=== PATIENT | male | born 1990 | race Caucasian/White ===

== ENCOUNTER 2016-12-11 21:18 | Emergency (ER) | payer OTHER ==
[~2016-12-11] VITALS: Ht 175.3 cm; Wt 73.5 kg
[~2016-12-11 21:18] MED LIST: BUPR100T8 PO; QUET1TAB10 PO
[2016-12-11 21:21] VITALS: TEMP 36.6; Ht 175.3 cm; Wt 73.5 kg
[2016-12-11] MEDS ORDERED: OXYC1TAB3 PO (21:34)
--- NOTE | 2016-12-11 21:41 | EMERGENCY ROOM VISIT NOTE ---
History First contact with patient: 21:26 Chief Complaint: DENTAL PAIN Stated Complaint: SHARP PAINS Nursing Triage Summary: Recent teeth pulled, c/o shooting pain on right side. History of Present Illness The patient is a 26 year old male who presents to the Emergency Room with complaints of right-sided dental pain. The patient reports that he underwent wisdom tooth extraction one week ago by Dr. Ramesh in [place]. The patient reports that his pain started 24 hours ago, and is now rated a 10 out of 10. He did call the office and they cannot see him until Thursday. They would not provide any additional prescriptions. The patient denies any facial swelling, drainage or foul taste. He denies any bleeding from the extraction site. He was told to avoid smoking. When he did try to smoke, his girlfriend scolded him. He denies any fevers or chills or difficulty swallowing. Review of Systems 10 system review was performed and was negative except for pertinent positives and negatives as indicated in history of present illness Past Medical/Surgical History Medical Problems: (1) Asthma Family History Diabetes mellitus Hypertension Seizures Social History Smoking Status: Current Every Day Smoker Alcohol Use: occasionally Drug Use: none Marital Status: single Housing Status: lives with family Occupation Status: unemployed Current/Historical Medications Scheduled Bupropion (Wellbutrin Sr), 100 MG PO DAILY Scheduled PRN Oxycodone Ir (Roxicodone Ir), 1 TAB PO Q6H PRN for Pain Quetiapine Fumarate (Seroquel), 200 MG PO HS PRN for INSOMNIA Allergies Coded Allergies: Acetaminophen (Verified Allergy, Unknown, GI SYMPTOMS, 04/28/15) Hydrocodone (Verified Allergy, Unknown, GI SYMPTOMS, 04/28/15) Tramadol (Verified Allergy, Unknown, GI SYMPTOMS, 04/28/15) Physical Exam Vital Signs Date Time Temp Pulse Resp B/P Pulse Ox O2 Delivery O2 Flow Rate FiO2 12/11/16 21:21 36.6 100 16 143/96 97 Room Air Physical Exam CONSTITUTIONAL: Healthy and well nourished. Alert and oriented X 3 with positive affect. HEENT: Normocephalic, atraumatic. Pupils equal, round and reactive. No facial edema or erythema noted. OROPHARYNX: The patient has evidence for 4 wisdom teeth extractions. There is no gingival erythema, fluctuance or pointing. LYMPHATICS: No submandibular, submental or cervical chain adenopathy. NECK: Full active range of motion without discomfort. RESPIRATORY: Clear to auscultation bilaterally with no wheezing, crackles, rhonchi or stridor. CARDIOVASCULAR: Regular rate and rhythm with no murmurs, rubs or gallops. INTEGUMENTARY: No rash or other significant dermatologic conditions noted. NEUROLOGIC: Facial sensations are intact. Medical Decision & Procedures ED Course Patient history and physical exam were performed. Nurse's notes were reviewed. It is noted that the patient has Tylenol listed as an allergy in medical records. The patient reports that he was provided a prescription for Percocet. The patient then reported that he is not allergic to Tylenol. The patient was provided a home pack and prescription for oxycodone 5 mg, one every 6 hours as needed for pain, dispensed #12 no refills. The patient was advised that I am unable to provide any larger prescription. He was instructed to seek further pain management from his dentist or family doctor. He is welcome to return for any developing facial swelling, redness, fever, difficulty swallowing or other signs of developing infection. The patient voiced understanding of all discharge instructions, and rated his pain a 7 out of 10 at the conclusion of my exam. Medical Decision [place] Drug Monitoring Program Search Results: patient reviewed within database, no issues identified Impression Primary Impression: Post extraction dental pain Departure Information Dispostion Home / Self-Care Prescriptions Oxycodone Ir (Roxicodone Ir) 5 Mg Tab 1 TAB PO Q6H Y for Pain, #12 TAB For Initial Treatment Prov: Mark Reynaga PA 12/11/16 Forms HOME CARE DOCUMENTATION FORM, IMPORTANT VISIT INFORMATION Patient Instructions My [facility] Additional Instructions Take ibuprofen 600 mg every 6-8 hours. OxyIR if needed for worse pain. Do not drink or drive while taking OxyIR. You must follow-up with your oral surgeon for further management. If he is unable to provide any further pain management for you, contact your family doctor. The emergency department does not provide postoperative pain management, dental services or referrals.
[2016-12-11] MEDS ORDERED: OXYCODONE IR HOME PACK PO ONE (21:45)
[2016-12-11 21:49] VITALS: BP 143/87; PULSE 95; O2SAT 96
[2017-01-28] MEDS ORDERED: CLON0.5T3 PO (16:00)
[2017-05-06] MEDS ORDERED: DECONGESTANT PO (16:55)
[2017-06-30] MEDS ORDERED: OXYC1TAB3 PO (21:04)
[2017-06-30] MEDS ORDERED: CLON0.5T3 PO (21:52)
[2017-06-30] MEDS ORDERED: BUPR-79 PO (21:53)
[2017-06-30] MEDS ORDERED: CHLO1TAB19 PO (21:53)
== END 2016-12-11 21:50 | disposition home or self-care (01) ==
LOC: C.EDB 21:19 → C.EDD 21:50
DX: K08.89 Other specified disorders of teeth and supporting structures (principal); J45.909 Unspecified asthma, uncomplicated; F17.200 Nicotine dependence, unspecified, uncomplicated; Z79.899 Other long term (current) drug therapy; Z88.5 Allergy status to narcotic agent; Z88.6 Allergy status to analgesic agent; Z83.3 Family history of diabetes mellitus; Z82.49 Family history of ischemic heart disease and other diseases of the circulatory system; Z82.0 Family history of epilepsy and other diseases of the nervous system

== ENCOUNTER 2016-12-26 19:17 | Emergency (ER) | payer OTHER ==
[~2016-12-26] VITALS: Ht 175.3 cm; Wt 75.4 kg
[~2016-12-26 19:17] MED LIST changes: +OXYC1TAB3 PO
[2016-12-26 19:36] VITALS: TEMP 36.6; Ht 175.3 cm; Wt 75.4 kg
[2016-12-26] MEDS ORDERED: OXYCODONE IR HOME PACK PO ONE (20:45)
--- NOTE | 2016-12-26 20:46 | EMERGENCY ROOM VISIT NOTE ---
ED Visit Note First contact with patient: 20:38 CHIEF COMPLAINT: Toothache HISTORY OF PRESENT ILLNESS: This 26-year-old male patient presented to the emergency department ambulatory with a progressive toothache for past several days. The patient believes it is coming from sites of dental extraction. The pain is now steady and severe and radiates to the face. The patient does a dentist appointment set up on Thursday. They rate their pain a 9/10 and the ibuprofen and Tylenol they have been taking has not relieved the pain. Denies facial swelling or fever. The patient denies any discharge from the mouth. REVIEW OF SYSTEMS: A 6 system review of systems was completed with positives and pertinent negatives listed in the HPI. ALLERGIES: Acetaminophen, hydrocodone, tramadol MEDICATIONS: Patient denies PMH: Patient denies SOCIAL HISTORY: The patient is a smoker. He lives locally PHYSICAL EXAM: Vitals are noted on the nurse's note and reviewed by myself. Vital signs stable. Temperature 36.6C orally. GENERAL: 26-year-old male, in no acute distress, nondiaphoretic, well-developed well-nourished. Mouth: There is no facial swelling. There is no evidence of gum swelling. There is no discharge. There is no obvious exposed bone or nerve root. The remainder of the pharynx and tonsils are without erythema, edema, or exudate. The airway is patent. There is no facial swelling, cervical or submandibular lymphadenopathy. The patient appears uncomfortable and in pain. The patient has overall fair dental hygiene. ED COURSE: The patient was seen and examined. Previous visits were reviewed. The patient has been seen here multiple times in the past for dental pain. He has been here for possible overdose as well. The patient has been seen for this particular episode of dental pain. He had received a prescription for oxycodone. Upon review of the prescription drug monitoring website, he has also received 2 prescriptions for narcotics from his maxillofacial surgeon. I advised the patient and he has been here multiple times. He states that he just got out of residential and hasn't been here for a while. I do not feel comfortable giving the patient a prescription for narcotics but I did agree to give him a take-home pack. He states he is already taking clindamycin. He states he has an appointment with his dentis on Thursday. He should keep this appointment. Problem List Medical Problems: (1) Asthma Status: Chronic Current/Historical Medications Scheduled Bupropion (Wellbutrin Sr), 150 MG PO BID Clindamycin Hcl (Cleocin), 1 CAP PO TID Allergies Coded Allergies: Hydrocodone (Verified Allergy, Unknown, GI SYMPTOMS, 04/28/15) Tramadol (Verified Allergy, Unknown, GI SYMPTOMS, 04/28/15) Vital Signs Date Time Temp Pulse Resp B/P Pulse Ox O2 Delivery O2 Flow Rate FiO2 12/26/16 21:12 77 18 144/90 96 12/26/16 19:36 36.6 83 19 131/90 97 Room Air Medications Administered Medications (Trade) Dose Ordered Sig/Lelia Route Start Time Stop Time Status Last Admin Dose Admin Oxycodone HCl (Roxicodone Immediate Rel 5MG Home Pack) 1 homepack UD ONCE PO 12/26/16 20:45 12/26/16 20:46 DC 12/26/16 21:08 1 HOMEPACK Departure Information Impression Primary Impression: Pain, dental Dispostion Home / Self-Care Condition GOOD Referrals Ed Singer M.D. (PCP) Real Ramesh M.D. Patient Instructions My [facility] Additional Instructions Motrin 600 mg every 6-8 hours for moderate pain Oxy IR 1-2 tablets every 4-6 hrs as needed for severe pain. No driving or alcohol use with Oxy IR. Follow up with your dentist for definitive management Continue the antibiotics as prescribed, until finished Return with fevers or facial swelling or worsening pain
[2016-12-26] MEDS ORDERED: BUPR-79 PO (20:55)
[2016-12-26] MEDS ORDERED: CLIN300C2 PO (20:56)
[2016-12-26 21:12] VITALS: BP 144/90; PULSE 77; O2SAT 96
[2017-01-28] MEDS ORDERED: CLON0.5T3 PO (16:00)
[2017-05-06] MEDS ORDERED: DECONGESTANT PO (16:55)
[2017-06-30] MEDS ORDERED: OXYC1TAB3 PO (21:04)
[2017-06-30] MEDS ORDERED: CLON0.5T3 PO (21:52)
[2017-06-30] MEDS ORDERED: CHLO1TAB19 PO (21:53)
[2017-06-30] MEDS ORDERED: BUPR-79 PO (21:53)
== END 2016-12-26 21:13 | disposition home or self-care (01) ==
LOC: C.EDB 19:18 → C.EDD 21:13
DX: K08.89 Other specified disorders of teeth and supporting structures (principal); J45.909 Unspecified asthma, uncomplicated; F17.200 Nicotine dependence, unspecified, uncomplicated; Z79.899 Other long term (current) drug therapy; Z88.5 Allergy status to narcotic agent; Z88.6 Allergy status to analgesic agent

== ENCOUNTER 2017-05-03 16:17 | Emergency (ER) | payer OTHER ==
[~2017-05-03] VITALS: Ht 175.3 cm; Wt 75.1 kg
[~2017-05-03 16:17] MED LIST changes: -BUPR100T8 PO; +CLON0.5T3 PO; -OXYC1TAB3 PO; -QUET1TAB10 PO
[2017-05-03 16:24] VITALS: BP 130/88; PULSE 112; TEMP 36.7; O2SAT 97; Ht 175.3 cm; Wt 75.1 kg
[2017-05-03] MEDS ORDERED: ALBUTEROL HFA 8 GM INHALER INH STA (16:44)
--- NOTE | 2017-05-04 00:44 | EMERGENCY ROOM VISIT NOTE ---
History First contact with patient: 16:38 Chief Complaint: COUGH Stated Complaint: COUGHING BADLY, PAIN IN NECK, CONGESTED Nursing Triage Summary: Runny nose, cough, eye irritation per pt. History of Present Illness The patient is a 26 year old male who presents to the Emergency Room with complaints of runny nose, congestion, neck discomfort, sore throat and eye irritation. The patient reports that his symptoms started 2 days ago with decongestion. He reports getting a medicine at store, but is uncertain of its name. He has not tried any ibuprofen, Tylenol or use of cough medications or expectorants. He rates his overall discomfort an 8 out of 10. Review of Systems 10 system review was performed and was negative except for pertinent positives and negatives as indicated in history of present illness Past Medical/Surgical History Medical Problems: (1) Asthma Family History Diabetes mellitus Hypertension Seizures Social History Smoking Status: Current Every Day Smoker Alcohol Use: occasionally Drug Use: none Marital Status: single Housing Status: lives with family Occupation Status: unemployed Current/Historical Medications Scheduled PRN [Decongestant], 1 DOSE PO UD PRN for Nasal Congestion Physical Exam Vital Signs Date Time Temp Pulse Resp B/P (MAP) Pulse Ox O2 Delivery O2 Flow Rate FiO2 05/03/17 16:26 97 05/03/17 16:24 36.7 112 18 130/88 97 Room Air Pain Rating (0-10): 5.0 Physical Exam CONSTITUTIONAL: Healthy and well nourished. Alert and oriented X 3 with positive affect. Patient does not appear in any acute distress. HEENT: Normocephalic, atraumatic. Pupils equal, round and reactive. Ears and nares are clear. No rhinorrhea. OROPHARYNX: Minimal posterior pharyngeal erythema without tonsillar hypertrophy or exudates. NECK: Full active range of motion without discomfort. LYMPHATICS: No cervical chain adenopathy. RESPIRATORY: Clear to auscultation bilaterally with no wheezing, crackles, rhonchi or stridor. CARDIOVASCULAR: Regular rate and rhythm with no murmurs, rubs or gallops. GASTROINTESTINAL: Bowel sounds present in all quadrants. Soft and nontender to palpation. MUSCULOSKELETAL: Full range of motion of all joints without discomfort. INTEGUMENTARY: No rash or other significant dermatologic conditions noted. NEUROLOGIC: No focal neurologic deficits noted. Medical Decision & Procedures Medications Administered Medications (Trade) Dose Ordered Sig/Lelia Route Start Time Stop Time Status Last Admin Dose Admin Albuterol (Ventolin Hfa Inhaler) 2 puffs ONE STAT INH 05/03/17 16:44 05/03/17 16:45 DC 05/03/17 16:50 2 PUFFS ED Course Patient history and physical exam were performed. Nurse's notes were reviewed. Vital signs were reviewed and were normal with an O2 saturation of 97% on room air. The patient is also afebrile. General exam is consistent with a viral upper respiratory infection. The patient was dispensed a Ventolin metered -dose inhaler with AeroChamber, and instructions for its use. The patient cannot recall when he last used an albuterol inhaler for his asthma. The patient was provided additional recommendations for OTC medications for symptomatic relief. He was instructed to follow-up with his PCP if symptoms are not improving within the next week. The patient was happy with plan of care , voiced understanding of all discharge instructions, and denied any discomfort at the time of discharge. Medical Decision At the current time, the patient has minimal symptoms, productive cough or other concerning vital signs. I deferred corticosteroid and antibiotic treatment at this time, but the patient may need treatment if his symptoms worsen. Medication Reconcilliation Current Medication List: was personally reviewed by me Blood Pressure Screening Patient's blood pressure: Normal blood pressure Impression Primary Impression: Upper respiratory infection Additional Impressions: History of asthma Tobacco use disorder Departure Information Dispostion Home / Self-Care Condition GOOD Forms HOME CARE DOCUMENTATION FORM, IMPORTANT VISIT INFORMATION Patient Instructions My [facility], ED URI Viral Additional Instructions Your upper respiratory infection is due to a viral infection. Antibiotics do not kill viruses, therefore are not used during the initial phases of sickness. Administer albuterol 2 puffs every 4 hours as needed for cough. You may also use Robitussin-DM and Mucinex for additional cough relief. Continue with your decongestant for sinus congestion. Ibuprofen 800 mg and/or Tylenol 1000 mg every 8 hours. You may also alternate these medications for more effective pain relief: Ibuprofen --4 HRS--> Tylenol --4 HRS--> ibuprofen --4 HRS--> Tylenol .... Follow-up with your family doctor as needed for further management, especially if symptoms are not improving within the next week. Refrain from smoking, especially with your history of asthma. Problem Qualifiers Primary Impression: Upper respiratory infection URI type: unspecified viral URI Qualified Codes: J06.9 - Acute upper respiratory infection, unspecified; B97.89 - Other viral agents as the cause of diseases classified elsewhere
[2017-05-06] MEDS ORDERED: DECONGESTANT PO (16:55)
== END 2017-05-03 16:48 | disposition home or self-care (01) ==
LOC: C.EDB 16:19 → C.EDD 16:48
DX: J06.9 Acute upper respiratory infection, unspecified (principal); J45.909 Unspecified asthma, uncomplicated; F17.200 Nicotine dependence, unspecified, uncomplicated; Z83.3 Family history of diabetes mellitus; Z82.49 Family history of ischemic heart disease and other diseases of the circulatory system; Z82.0 Family history of epilepsy and other diseases of the nervous system

== ENCOUNTER 2017-05-06 17:54 | Emergency (ER) | payer OTHER ==
[~2017-05-06] VITALS: Ht 175.3 cm; Wt 73.0 kg
[~2017-05-06 17:54] MED LIST changes: -CLON0.5T3 PO; +DECONGESTANT PO
[2017-05-06 17:55] VITALS: TEMP 36.7; Ht 175.3 cm; Wt 73.0 kg
--- NOTE | 2017-05-06 19:38 | EMERGENCY ROOM VISIT NOTE ---
ED Visit Note First contact with patient: 18:54 CHIEF COMPLAINT: Bee sting HISTORY OF PRESENT ILLNESS: This 26-year-old male patient presents to the emergency department after sustaining insect bite, probably a bee sting on his right calf prior to arrival. The patient complains of swelling and 5/10 pain over the site. The patient also notes redness surrounding the area. No other stings sustained. The patient denies perioral numbness or tingling, throat, tongue, or lip swelling or difficulty breathing. No other complaints. REVIEW OF SYSTEMS: A review of systems was performed with positives and pertinent negatives listed in the history of present illness. All other systems were reviewed and are negative. ALLERGIES: Tramadol, hydrocodone MEDICATIONS: Reviewed PMH: Depression, schizophrenia, psoriasis PHYSICAL EXAM: Vital Signs reviewed, see Nurse's notes, vital signs stable. GENERAL: 26-year-old male, alert, oriented, no acute distress, and cooperative. HEENT: Normocephalic, atraumatic, no facial edema. Lips, tongue, and mucosa normal. SKIN: Diffuse red with White plaque lesions. There is an erythematous, tender, indurated area located on the patient's right calf. . The stinger is not in place. No purulent drainage or signs of infection. NEURO: Normal sensorium. EMERGENCY DEPARTMENT COURSE AND DECISION MAKING: I examined the patient. The patient presented with an isolated hymenopteran envenomation. Differential diagnosis includes local reaction, anaphylactic reaction, infection, as well as other pathologies. The physical is benign and this appears to be isolated to a local reaction. The patient was seen and examined He was given 1 dose of prednisone 60 mg po Discharge instructions were reviewed, and the patient was discharged in good condition DIAGNOSIS: Hymenopteran envenomation DISCHARGE INSTRUCTIONS: Please apply ice for 20 minute intervals to the affected area Benadryl 25 mg every 8 hours for the next 24 hours. Then this may be taken as needed every 8 hours for itching or swelling Elevate the leg above the heart for the next 24 hours Please finish the entire course of prednisone Return to the emergency department if you have any of the following symptoms: -Swelling of the face, lips or tongue -Difficulty breathing -Increase redness or swelling of the calf
[2017-05-06] MEDS ORDERED: PRED50TA PO (19:39)
[2017-05-06 20:04] VITALS: BP 122/87; PULSE 90; O2SAT 100
== END 2017-05-06 20:04 | disposition home or self-care (01) ==
LOC: C.EDB 17:55 → C.EDD 20:04
DX: T14.8 Other injury of unspecified body region (principal); W57.XXXA Bitten or stung by nonvenomous insect and other nonvenomous arthropods, initial encounter; F32.9 Major depressive disorder, single episode, unspecified; F20.9 Schizophrenia, unspecified; L40.9 Psoriasis, unspecified

== ENCOUNTER 2017-06-15 12:29 | Emergency (ER) | payer OTHER ==
[~2017-06-15] VITALS: Ht 175.3 cm; Wt 71.7 kg
[2017-06-15 12:37] VITALS: TEMP 36.4; Ht 175.3 cm; Wt 71.7 kg
[2017-06-15] MEDS ORDERED: LORAZEPAM 1 MG TAB SL STA ×2 (13:13→16:21)
--- NOTE | 2017-06-15 13:21 | EMERGENCY ROOM VISIT NOTE ---
History Report prepared by Ruthannibjosé: Dinorah Tripathi Under the Supervision of: Dr. El Tay M.D. First contact with patient: 12:48 Chief Complaint: MENTAL HEALTH EVALUATION Stated Complaint: ANXIETY, DEPRESSION History of Present Illness The patient is a 26 year old male who presents to the Emergency Room for a mental health evaluation. Per police, the patient sent a message to a bunch of people saying that he "needs time away from life" but the patient now states that this message was misinterpreted. The patient states that he just wanted to be by himself. Per parents, the patient has been depressed for the past couple weeks. Per mother, the patient tried to take a bunch of pills and that she yelled at him and he spit all the pills out. The patient denies attempting to take pills. Per mother, the patient is "angry and needs help". The patient notes that he has had decreased appetite and has not been able to sleep. He notes that his "anxiety has been through the roof". The patient denies taking his Seroquel because it makes him tired. He denies any fever or abdominal pain. He notes being unable to make an appointment with his psychiatrist. The patient states "I just want to be home with my mom since she just got out of surgery". Source of History: patient Onset: just prior to arrival Position: other (generalized) Quality: other (mental health evaluation) Associated Symptoms: No fevers, No abdominal pain Review of Systems See HPI for pertinent positives & negatives. A total of 10 systems reviewed and were otherwise negative. Past Medical & Surgical Medical Problems: (1) Asthma Family History Diabetes mellitus Hypertension Seizures Social History Smoking Status: Current Every Day Smoker Alcohol Use: occasionally Drug Use: none Marital Status: single Housing Status: lives with family Occupation Status: unemployed Current/Historical Medications Scheduled PRN Hydrocodone/Acetaminophen 5MG/325MG ([place] 5MG/325MG), 1 TAB PO UD PRN for Pain Allergies Coded Allergies: Hydrocodone (Verified Allergy, Severe, GI SYMPTOMS, 06/15/17) CAN'T TAKE THE BRAND WITH RED SPECKLES Tramadol (Verified Allergy, Unknown, GI SYMPTOMS, 06/15/17) Physical Exam Vital Signs Date Time Temp Pulse Resp B/P (MAP) Pulse Ox O2 Delivery O2 Flow Rate FiO2 06/15/17 19:34 98 20 144/81 99 Room Air 06/15/17 14:45 98 20 161/89 99 Room Air 06/15/17 12:37 36.4 99 20 147/101 98 Room Air Physical Exam GENERAL: Patient is a healthy-appearing well-nourished male, agitated HEAD: Normocephalic atraumatic EYES: Ocular movements intact pupils equal and react to light OROPHARYNX mucous membranes are moist no exudates present no erythema or edema present NECK: Supple no nuchal rigidity CHEST: Good equal expansion LUNGS: Clear and equal to auscultation CARDIAC: Normal S1 and S2 ABDOMEN: Soft nontender no guarding BACK: No CVA tenderness EXTREMITIES: No pain upon palpation normal muscle strength in all groups no clubbing cyanosis or edema NEURO: Patient is following commands is answering questions appropriately. Alert and oriented x3 Cranial Nerves 2-12 grossly intact Medical Decision & Procedures Laboratory Results 06/15/17 13:51 Red Blood Count 5.54, Mean Corpuscular Volume 86.5, Mean Corpuscular Hemoglobin 29.8, Mean Corpuscular Hemoglobin Concent 34.4, Mean Platelet Volume 11.0, Neutrophils (%) (Auto) 66.7, Lymphocytes (%) (Auto) 17.6, Monocytes (%) (Auto) 10.3, Eosinophils (%) (Auto) 4.7, Basophils (%) (Auto) 0.5, Neutrophils # (Auto ) 5.43, Lymphocytes # (Auto) 1.43, Monocytes # (Auto) 0.84, Eosinophils # (Auto ) 0.38, Basophils # (Auto) 0.04 06/15/17 13:51 Test 06/15/17 13:50 06/15/17 13:51 Urine Color YELLOW Urine Appearance CLEAR (CLEAR) Urine pH 7.0 (4.5-7.5) Urine Specific [place] 1.018 (1.000-1.030) Urine Protein NEG (NEG) Urine Glucose (UA) TRACE (NEG) Urine Ketones NEG (NEG) Urine Occult Blood NEG (NEG) Urine Nitrite NEG (NEG) Urine Bilirubin NEG (NEG) Urine Urobilinogen NEG (NEG) Urine Leukocyte Esterase NEG (NEG) Urine Opiates Screen POS (NEG) Urine Methadone, Qualitative NEG (NEG) Urine Barbiturates NEG (NEG) Urine Phencyclidine (PCP) Level NEG (NEG) Ur Amphetamine/Methamphetamine POS (NEG) MDMA (Ecstasy) Screen NEG (NEG) Urine Benzodiazepines Screen NEG (NEG) Urine Cocaine Metabolite NEG (NEG) Urine Marijuana (THC) NEG (NEG) White Blood Count 8.14 K/uL (4.8-10.8) Red Blood Count 5.54 M/uL (4.7-6.1) Hemoglobin 16.5 g/dL (14.0-18.0) Hematocrit 47.9 % (42-52) Mean Corpuscular Volume 86.5 fL (80-100) Mean Corpuscular Hemoglobin 29.8 pg (25-34) Mean Corpuscular Hemoglobin Concent 34.4 g/dl (32-36) Platelet Count 154 K/uL (130-400) Mean Platelet Volume 11.0 fL (7.4-10.4) Neutrophils (%) (Auto) 66.7 % Lymphocytes (%) (Auto) 17.6 % Monocytes (%) (Auto) 10.3 % Eosinophils (%) (Auto) 4.7 % Basophils (%) (Auto) 0.5 % Neutrophils # (Auto) 5.43 K/uL (1.4-6.5) Lymphocytes # (Auto) 1.43 K/uL (1.2-3.4) Monocytes # (Auto) 0.84 K/uL (0.11-0.59) Eosinophils # (Auto) 0.38 K/uL (0-0.5) Basophils # (Auto) 0.04 K/uL (0-0.2) RDW Standard Deviation 41.2 fL (36.4-46.3) RDW Coefficient of Variation 13.0 % (11.5-14.5) Immature Granulocyte % (Auto) 0.2 % Immature Granulocyte # (Auto) 0.02 K/uL (0.00-0.02) Anion Gap 8.0 mmol/L (3-11) Est Creatinine Clear Calc Drug Dose 118.1 ml/min Estimated GFR () 128.3 Estimated GFR (Non- 110.7 BUN/Creatinine Ratio 8.4 (10-20) Calcium Level 8.3 mg/dl (8.5-10.1) Total Bilirubin 0.4 mg/dl (0.2-1) Direct Bilirubin 0.1 mg/dl (0-0.2) Aspartate Amino Transf (AST/SGOT) 14 U/L (15-37) Alanine Aminotransferase (ALT/SGPT) 23 U/L (12-78) Alkaline Phosphatase 127 U/L (45-117) Total Protein 7.1 gm/dl (6.4-8.2) Albumin 3.8 gm/dl (3.4-5.0) Thyroid Stimulating Hormone (TSH) 0.898 uIu/ml (0.300-4.500) Ethyl Alcohol mg/dL < 3.0 mg/dl (0-3) Labs reviewed by ED physician. Medications Administered Medications (Trade) Dose Ordered Sig/Lelia Route Start Time Stop Time Status Last Admin Dose Admin Lorazepam (Ativan Tab) 1 mg NOW STAT SL 06/15/17 13:13 06/15/17 13:14 DC 06/15/17 13:23 1 MG Lorazepam (Ativan Tab) 1 mg NOW STAT SL 06/15/17 16:21 06/15/17 16:22 DC 06/15/17 16:21 1 MG Lorazepam (Ativan Tab) 1 mg NOW STAT PO 06/15/17 16:31 06/15/17 16:32 DC 06/15/17 16:31 1 MG Nicotine (Nicoderm Cq 21MG Patch) 1 patch NOW STAT TD 06/15/17 16:31 06/15/17 16:32 DC 06/15/17 16:31 1 PATCH Nicotine Polacrilex (Nicorette 2MG Gum) 1 piece PRN STAT MT 06/15/17 16:31 06/15/17 16:32 DC 06/15/17 16:31 1 PIECE Haloperidol (Haldol Tab) 5 mg NOW STAT PO 06/15/17 19:22 06/15/17 19:24 DC 06/15/17 19:22 5 MG Lorazepam (Ativan Tab) 2 mg NOW STAT PO 06/15/17 19:22 06/15/17 19:24 DC 06/15/17 19:22 2 MG ED Course 1302: Past medical records reviewed. The patient was evaluated in room B9. A complete history and physical examination was performed. 1313: Lorazepam 1 mg SL. 1542: The patient is medically cleared. 1621: Lorazepam 1 mg SL. 1631: Nicotine gum 1 piece MT, Nicotine 1 patch, Lorazepam 1 mg SL. 1845: The delegate is interviewing the patient and she is going through the paperwork. Medical Decision Differential diagnosis: Etiologies such as mood disorder, infection, hypoglycemia, electrolyte abnormalities, cardiac sources, intracerebral event, toxicologic, neurologic, as well as others were entertained. This is a 26-year-old male who presents emergency department complaining of putting a large amount of pills into his mouth in a suicidal gesture. The patient is denying that he did any of these activities however he admits to not taking his medications and being unable to sleep at night. The parents brought the patient in under a 302 warrant. To get the patient's agitation down he was given Ativan in the emergency department in order nicotine patch and gum. The patient was independently evaluated by case management who also felt the patient was a risk to himself. For this reason a 302 warrant was signed and a delegate was brought in from the [facility]. He was evaluated by the [facility] delegate and at that time the patient wished to sign in voluntarily however when I went to reinterview the patient he became belligerent and told me to "fuck off" for this reason and for the fact that the patient has not been cooperative since he arrived in the emergency department I signed off on the 302 warrant. Medication Reconcilliation Current Medication List: was personally reviewed by me Impression Primary Impression: Mood disorder Scribe Attestation The scribe's documentation has been prepared under my direction and personally reviewed by me in its entirety. I confirm that the note above accurately reflects all work, treatment, procedures, and medical decision making performed by me. Departure Information Dispostion Home / Self-Care Referrals Jarrod Gatica MD (PCP) Patient Instructions [facility]
[2017-06-15 14:12] LABS: BASO % 0.5 %; BASO ABS # 0.04 K/uL (0-0.2); COMPLETE YES; EOS % 4.7 %; HEMATOCRIT 47.9 % (42-52); IG% 0.2 %; LYMPH % 17.6 %; LYMPH ABS # 1.43 K/uL (1.2-3.4); MEAN CELL VOLUME 86.5 fL (80-100); MEAN CORPUSCULAR HEMOGLOBIN 29.8 pg (25-34); MEAN CORPUSCULAR HGB CONC 34.4 g/dl (32-36); MONO % 10.3 %; NEUT % 66.7 %; PLATELET COUNT 154 K/uL (130-400); RED BLOOD COUNT 5.54 M/uL (4.7-6.1); WHITE BLOOD COUNT 8.14 K/uL (4.8-10.8)
[2017-06-15] MEDS ORDERED: HYDR-5688 PO (14:14)
[2017-06-15 14:18] LABS: URINE APPEARANCE CLEAR (CLEAR); URINE BILIRUBIN NEG (NEG); URINE COLOR YELLOW; URINE NITRITE NEG (NEG); URINE SPECIFIC GRAVITY 1.018 (1.000-1.030); UROBILINOGEN NEG (NEG)
[2017-06-15 14:21] LABS: MANUAL MICROSCOPIC REQUIRED? NO; REVIEW REQ? NO
[2017-06-15 14:38] LABS: BENZODIAZEPINE, URINE NEG (NEG); COCAINE,URINE NEG (NEG); PHENCYCLIDINE, URINE NEG (NEG)
[2017-06-15 14:39] LABS: BUN/CREATININE RATIO 8.4 (10-20); CALCIUM 8.3 mg/dl (8.5-10.1); CREATININE 0.94 mg/dl (0.60-1.40); POTASSIUM 3.5 mmol/L (3.5-5.1)
[2017-06-15 14:49] LABS: THYROID STIMULATING HORMONE 0.898 uIu/ml (0.300-4.500)
[2017-06-15] MEDS ORDERED: NICOTINE 21 MG/24 HR TDSY TD STA (16:31)
[2017-06-15] MEDS ORDERED: LORAZEPAM 1 MG TAB PO STA ×2 (16:31→19:22)
[2017-06-15] MEDS ORDERED: NICOTINE POLACRILEX 2 MG GUM MT STA (16:31)
[2017-06-15] MEDS ORDERED: HALOPERIDOL 5 MG TAB PO STA (19:22)
--- NOTE | 2017-06-16 07:40 | EMERGENCY ROOM VISIT NOTE ---
ED Visit Note First contact with patient: 06:35 Pt signed out to me on sailor. Pt on 302. Pt to be placed in the [facility] in the morning. No issues overnight. Signed out to Dr. Cheng awaiting transport.
--- NOTE | 2017-06-16 07:41 | EMERGENCY ROOM VISIT NOTE ---
ED Visit Note First contact with patient: 07:41
--- NOTE | 2017-06-16 09:28 | EMERGENCY ROOM VISIT NOTE ---
ED Visit Note First contact with patient: 07:41 I received this patient at change of shift signout from Dr. Fierro. The patient was initially seen for mental health evaluation. He was medically cleared. At this time he is awaiting transfer. The patient was accepted at the [facility]. Transfer paperwork was filled out by myself.
[2017-06-16] MEDS ORDERED: LORAZEPAM 1 MG TAB SL STA (11:42)
[2017-06-16 13:10] VITALS: BP 117/64; PULSE 103; O2SAT 98
[2017-06-18 09:21] LABS: COD UR NEGATIVE NG/ML (CUTOFF=50); HYDROCOD UR 233 NG/ML (CUTOFF=50); HYDROMOR UR 184 NG/ML (CUTOFF=50); MORPHINE UR NEGATIVE NG/ML (CUTOFF=50); NORHYDROCODONE CONF UR 337 NG/ML (CUTOFF=50); OXYMORPH UR NEGATIVE NG/ML (CUTOFF=50)
== END 2017-06-16 13:10 ==
LOC: C.EDB 12:30 → C.EDA 06-16 13:10
DX: F39 Unspecified mood [affective] disorder (principal); J45.909 Unspecified asthma, uncomplicated; F17.200 Nicotine dependence, unspecified, uncomplicated; Z88.5 Allergy status to narcotic agent; Z88.8 Allergy status to other drugs, medicaments and biological substances; Z83.3 Family history of diabetes mellitus; Z82.49 Family history of ischemic heart disease and other diseases of the circulatory system; Z82.0 Family history of epilepsy and other diseases of the nervous system

== ENCOUNTER 2017-07-10 12:13 | Emergency (ER) | payer OTHER ==
[~2017-07-10] VITALS: Ht 175.3 cm; Wt 74.4 kg
[~2017-07-10 12:13] MED LIST changes: +BUPR-79 PO; +CHLO1TAB19 PO; +CLON0.5T3 PO; -DECONGESTANT PO; +OXYC1TAB3 PO
[2017-07-10 12:22] VITALS: TEMP 36.6; O2SAT 98; Ht 175.3 cm; Wt 74.4 kg
[2017-07-10] MEDS ORDERED: CHLO100T8 PO (12:48)
[2017-07-10 13:35] LABS: BASO % 0.2 %; BASO ABS # 0.03 K/uL (0-0.2); COMPLETE YES; EOS % 1.5 %; HEMATOCRIT 45.5 % (42-52); IG% 0.2 %; LYMPH % 11.1 %; LYMPH ABS # 1.45 K/uL (1.2-3.4); MEAN CELL VOLUME 86.7 fL (80-100); MEAN CORPUSCULAR HEMOGLOBIN 31.6 pg (25-34); MEAN CORPUSCULAR HGB CONC 36.5 g/dl (32-36); MEAN PLATELET VOLUME 11.6 fL (7.4-10.4); MONO % 10.7 %; NEUT % 76.3 %; PLATELET COUNT 147 K/uL (130-400); RED BLOOD COUNT 5.25 M/uL (4.7-6.1); WHITE BLOOD COUNT 13.03 K/uL (4.8-10.8)
[2017-07-10 13:41] LABS: PARTIAL THROMBOPLASTIN RATIO 1.1; PROTHROMBIN TIME (PATIENT) 10.8 SECONDS (9.0-12.0)
[2017-07-10 13:42] LABS: BUN/CREATININE RATIO 9.8 (10-20); CREATININE 1.25 mg/dl (0.60-1.40); MAGNESIUM 2.5 mg/dl (1.8-2.4); POTASSIUM 3.7 mmol/L (3.5-5.1)
[2017-07-10] MEDS ORDERED: ACETAMINOPHEN 500 MG TAB PO STA (13:42)
[2017-07-10] MEDS ORDERED: LORAZEPAM 1 MG TAB SL STA (13:42)
[2017-07-10 13:53] LABS: PHOSPHORUS 2.4 mg/dl (2.5-4.9); THYROID STIMULATING HORMONE 1.41 uIu/ml (0.300-4.500)
--- NOTE | 2017-07-10 14:08 | DIAGNOSTIC IMAGING REPORT ---
HEAD WITHOUT CONTRAST (CT) CLINICAL HISTORY: 26 years-old Male with seizure. Acute seizure TECHNIQUE: Multiple axial CT images of the head were obtained without contrast. A dose lowering technique was utilized adhering to the principles of ALARA. CT DOSE: 537.48 mGy.cm COMPARISON: CT head 01/13/2015. FINDINGS: No acute intracranial hemorrhage, midline shift, mass, large territorial ischemia or abnormal extra-axial collection. The calvarium is intact. The paranasal sinuses, mastoid air cells, and middle ear cavities are clear. IMPRESSION: No acute intracranial abnormality. The above report was generated using voice recognition software. It may contain grammatical, syntax or spelling errors. Electronically signed by: Geovany Mike M.D. 07/10/2017 2:07 PM Dictated Date/Time: 07/10/2017 2:04 PM
--- NOTE | 2017-07-10 14:35 | DIAGNOSTIC IMAGING REPORT ---
CHEST 1 VW FRONT-NOT PORTABLE CLINICAL HISTORY: SEIZURE mental status change COMPARISON STUDY: 11/03/2013 FINDINGS: The bones soft tissues and hemidiaphragms are normal. The cardiomediastinal silhouette is normal. The lungs are clear. The pulmonary vasculature is normal. IMPRESSION: Negative chest. The above report was generated using voice recognition software. It may contain grammatical, syntax or spelling errors. Electronically signed by: Drew Christensen M.D. 07/10/2017 2:34 PM Dictated Date/Time: 07/10/2017 2:33 PM
--- NOTE | 2017-07-10 14:35 | DIAGNOSTIC IMAGING REPORT ---
L FINGER(S) MIN 2 VIEWS ROUTINE HISTORY: 26 years-old Male left index finger acute left index finger pain status post trauma COMPARISON: Left finger radiographs 06/30/2017 TECHNIQUE: 3 views of the left index finger. FINDINGS: Mild cortical irregularity is again seen involving the second metacarpal head which is unchanged suggesting sequela of remote trauma. No acute fracture, dislocation or significant degenerative changes. Soft tissues are unremarkable without opaque foreign body. IMPRESSION: No acute fracture or dislocation. The above report was generated using voice recognition software. It may contain grammatical, syntax or spelling errors. Electronically signed by: Geovany Mike M.D. 07/10/2017 2:34 PM Dictated Date/Time: 07/10/2017 2:32 PM
[2017-07-10 15:07] LABS: URINE APPEARANCE CLEAR (CLEAR); URINE BILIRUBIN NEG (NEG); URINE COLOR YELLOW; URINE NITRITE NEG (NEG); URINE PH 5.5 (4.5-7.5); URINE SPECIFIC GRAVITY 1.023 (1.000-1.030); UROBILINOGEN NEG (NEG)
[2017-07-10 15:12] LABS: MANUAL MICROSCOPIC REQUIRED? NO; REVIEW REQ? NO
[2017-07-10 15:48] LABS: BENZODIAZEPINE, URINE NEG (NEG); COCAINE,URINE NEG (NEG); PHENCYCLIDINE, URINE NEG (NEG)
[2017-07-10] MEDS ORDERED: LEVETIRACETAM 500 MG TAB PO STA (16:42)
[2017-07-10] MEDS ORDERED: LEVE500T13 PO (17:07)
[2017-07-10 18:10] VITALS: BP 119/70; PULSE 94; O2SAT 98
--- NOTE | 2017-07-10 18:12 | EMERGENCY ROOM VISIT NOTE ---
History Report prepared by Arlet: Adalberto Fink Under the Supervision of: Dr. Mario Galo M.D. First contact with patient: 13:05 Chief Complaint: SEIZURE Stated Complaint: seizure Nursing Triage Summary: pt presents to room b02 via [facility]. this am pt was a refusal after having a seizure. this afternoon while at his sister's house pt had a second seizure while sitting on a couch lasting approx 3 min. pt denies any hx of seizures and denies any drug or alcohol use. [place] commissioned police officer on scene of second seizure reports to medic that today pt's friend was picked up for bath salts. History of Present Illness The patient is a 26 year old male who presents to the Emergency Room with complaints of two seizures that occurred today. Early this morning, the patient felt at his baseline while his mother was making coffee. Suddenly per the patient's mother, he was on the floor and shaking. He came out of his seizure before EMS arrived and did not want to be evaluated. Then, at 1200 today he had another seizure that was witness by his family. He began shaking on the couch and his eyes rolled back into his head. He started coming out of it as he was being placed into the ambulance. Before the second episode, he was talking about his chest hurting. Afterward, he started to have a headache that is still present. He denies any tongue trauma, head trauma, or incontinence with his bladder or bowel. He is currently mildly nauseated. He does have a family history of seizures. He has been taking Klonopin PRN for his anxiety, however he ran out of it 1 week ago. He was only on it for two weeks prior. He notes that his left index finger has been causing him pain for about a week. Pt denies LOC, fevers, chills, diaphoresis, visual changes, neck pain, breathing difficulties, vomiting, abdominal pain, back pain, melena, hematochezia, urinary symptoms, numbness, weakness, lymphadenopathy, rash, or other complaints. He denies any alcohol or nonprescription drug use. He is currently taking Wellbutrin for his Depression. Source of History: patient Onset: today Position: other (Global) Symptom Intensity: 2 episodes Quality: other (Seizure) Timing: intermittent Associated Symptoms: + headache, + chest pain, + nausea, No fevers, No neck pain, No vomiting Review of Systems See HPI for pertinent positives and negatives. A total of ten systems were reviewed and were otherwise negative. Past Medical & Surgical Medical Problems: (1) Anxiety (2) Asthma Family History Diabetes mellitus Hypertension Seizures Social History Smoking Status: Current Every Day Smoker Smokeless Tobacco Use: No Alcohol Use: none Drug Use: none Marital Status: single Housing Status: lives with family Occupation Status: unemployed Current/Historical Medications Scheduled Bupropion (Wellbutrin Sr), 150 MG PO DAILY Chlorpromazine Hcl (Thorazine), 25 MG PO BID Chlorpromazine Hcl (Thorazine), 100 MG PO HS Levetiracetam (Keppra), 1 TAB PO BID Scheduled PRN Clonazepam (Klonopin), 0.5 TAB PO BID PRN for Anxiety Allergies Coded Allergies: Hydrocodone (Verified Allergy, Severe, GI SYMPTOMS, 07/10/17) CAN'T TAKE THE BRAND WITH RED SPECKLES Tramadol (Verified Allergy, Unknown, GI SYMPTOMS, 07/10/17) Physical Exam Vital Signs Date Time Temp Pulse Resp B/P (MAP) Pulse Ox O2 Delivery O2 Flow Rate FiO2 07/10/17 17:12 107 07/10/17 16:15 90 14 122/71 97 Room Air 07/10/17 14:28 88 16 136/82 98 Room Air 07/10/17 13:15 98 18 117/68 99 Room Air 07/10/17 12:22 98 Room Air 07/10/17 12:22 36.6 98 18 134/60 98 Room Air 07/10/17 12:21 103 Physical Exam GENERAL: Awake, alert, well appearing, no distress HENT: Normocephalic, atraumatic. TM's normal. Oropharynx unremarkable. EYES: PERRL. EOMI. Normal conjunctiva. Sclera non-icteric. NECK: Supple. No nuchal rigidity. FROM. No JVD or bruit. Negative jolt accentuation. RESPIRATORY: CTA CARDIAC: RRR. No murmur. ABDOMEN: Soft, non distended. No tenderness to palpation. No rebound or guarding. No masses. RECTAL: Deferred. MUSCULOSKELETAL: Unremarkable. No edema. No discoloration. Gross motor strength symmetric. Left hand evaluated. There is minimal swelling of the left proximal interphalangeal joint of the index finger. There is no laxity to strain. Tendon function 100% regarding the extensor and flexor tendons. No signs of tenosynovitis or cellulitis. No open wounds. No gross deformity. Range of motion relatively well-preserved. NEURO: Cranial nerves 2-12 grossly intact. Normal sensorium. No sensory or motor deficits noted. Speech normal. No pronator drift. SKIN: Diffuse psoriasis. LYMPH: No adenopathy. Medical Decision & Procedures ER Provider Diagnostic Interpretation: Radiology results as stated below per my review and radiologist interpretation: CHEST 1 VW FRONT-NOT PORTABLE CLINICAL HISTORY: SEIZURE mental status change COMPARISON STUDY: 11/03/2013 FINDINGS: The bones soft tissues and hemidiaphragms are normal. The cardiomediastinal silhouette is normal. The lungs are clear. The pulmonary vasculature is normal. IMPRESSION: Negative chest. The above report was generated using voice recognition software. It may contain grammatical, syntax or spelling errors. Electronically signed by: Drew Christensen M.D. 07/10/2017 2:34 PM Dictated Date/Time: 07/10/2017 2:33 PM HEAD WITHOUT CONTRAST (CT) CLINICAL HISTORY: 26 years-old Male with seizure. Acute seizure TECHNIQUE: Multiple axial CT images of the head were obtained without contrast. A dose lowering technique was utilized adhering to the principles of ALARA. CT DOSE: 537.48 mGy.cm COMPARISON: CT head 01/13/2015. FINDINGS: No acute intracranial hemorrhage, midline shift, mass, large territorial ischemia or abnormal extra-axial collection. The calvarium is intact. The paranasal sinuses, mastoid air cells, and middle ear cavities are clear. IMPRESSION: No acute intracranial abnormality. The above report was generated using voice recognition software. It may contain grammatical, syntax or spelling errors. Electronically signed by: Geovany Mike M.D. 07/10/2017 2:07 PM Dictated Date/Time: 07/10/2017 2:04 PM L FINGER(S) MIN 2 VIEWS ROUTINE HISTORY: 26 years-old Male left index finger acute left index finger pain status post trauma COMPARISON: Left finger radiographs 06/30/2017 TECHNIQUE: 3 views of the left index finger. FINDINGS: Mild cortical irregularity is again seen involving the second metacarpal head which is unchanged suggesting sequela of remote trauma. No acute fracture, dislocation or significant degenerative changes. Soft tissues are unremarkable without opaque foreign body. IMPRESSION: No acute fracture or dislocation. The above report was generated using voice recognition software. It may contain grammatical, syntax or spelling errors. Electronically signed by: Geovany Mike M.D. 07/10/2017 2:34 PM Dictated Date/Time: 07/10/2017 2:32 PM Laboratory Results 07/10/17 12:15 Red Blood Count 5.25, Mean Corpuscular Volume 86.7, Mean Corpuscular Hemoglobin 31.6, Mean Corpuscular Hemoglobin Concent 36.5, Mean Platelet Volume 11.6, Neutrophils (%) (Auto) 76.3, Lymphocytes (%) (Auto) 11.1, Monocytes (%) (Auto) 10.7, Eosinophils (%) (Auto) 1.5, Basophils (%) (Auto) 0.2, Neutrophils # (Auto ) 9.92, Lymphocytes # (Auto) 1.45, Monocytes # (Auto) 1.40, Eosinophils # (Auto ) 0.20, Basophils # (Auto) 0.03 07/10/17 12:15 Test 07/10/17 12:15 07/10/17 14:56 White Blood Count 13.03 K/uL (4.8-10.8) Red Blood Count 5.25 M/uL (4.7-6.1) Hemoglobin 16.6 g/dL (14.0-18.0) Hematocrit 45.5 % (42-52) Mean Corpuscular Volume 86.7 fL (80-100) Mean Corpuscular Hemoglobin 31.6 pg (25-34) Mean Corpuscular Hemoglobin Concent 36.5 g/dl (32-36) Platelet Count 147 K/uL (130-400) Mean Platelet Volume 11.6 fL (7.4-10.4) Neutrophils (%) (Auto) 76.3 % Lymphocytes (%) (Auto) 11.1 % Monocytes (%) (Auto) 10.7 % Eosinophils (%) (Auto) 1.5 % Basophils (%) (Auto) 0.2 % Neutrophils # (Auto) 9.92 K/uL (1.4-6.5) Lymphocytes # (Auto) 1.45 K/uL (1.2-3.4) Monocytes # (Auto) 1.40 K/uL (0.11-0.59) Eosinophils # (Auto) 0.20 K/uL (0-0.5) Basophils # (Auto) 0.03 K/uL (0-0.2) RDW Standard Deviation 41.2 fL (36.4-46.3) RDW Coefficient of Variation 12.9 % (11.5-14.5) Immature Granulocyte % (Auto) 0.2 % Immature Granulocyte # (Auto) 0.03 K/uL (0.00-0.02) Prothrombin Time 10.8 SECONDS (9.0-12.0) Prothromb Time International Ratio 1.0 (0.9-1.1) Activated Partial Thromboplast Time 27.8 SECONDS (21.0-31.0) Partial Thromboplastin Ratio 1.1 D-Dimer < 190 ug/L FEU (0-500) Anion Gap 8.0 mmol/L (3-11) Est Creatinine Clear Calc Drug Dose 88.8 ml/min Estimated GFR () 90.9 Estimated GFR (Non- 78.4 BUN/Creatinine Ratio 9.8 (10-20) Calcium Level 9.0 mg/dl (8.5-10.1) Phosphorus Level 2.4 mg/dl (2.5-4.9) Magnesium Level 2.5 mg/dl (1.8-2.4) Troponin I < 0.015 ng/ml (0-0.045) Thyroid Stimulating Hormone (TSH) 1.410 uIu/ml (0.300-4.500) Urine Color YELLOW Urine Appearance CLEAR (CLEAR) Urine pH 5.5 (4.5-7.5) Urine Specific [place] 1.023 (1.000-1.030) Urine Protein NEG (NEG) Urine Glucose (UA) NEG (NEG) Urine Ketones NEG (NEG) Urine Occult Blood NEG (NEG) Urine Nitrite NEG (NEG) Urine Bilirubin NEG (NEG) Urine Urobilinogen NEG (NEG) Urine Leukocyte Esterase NEG (NEG) Urine Opiates Screen NEG (NEG) Urine Methadone, Qualitative NEG (NEG) Urine Barbiturates NEG (NEG) Urine Phencyclidine (PCP) Level NEG (NEG) Ur Amphetamine/Methamphetamine NEG (NEG) MDMA (Ecstasy) Screen POS (NEG) Urine Benzodiazepines Screen NEG (NEG) Urine Cocaine Metabolite NEG (NEG) Urine Marijuana (THC) NEG (NEG) Laboratory results reviewed by me Medications Administered Medications (Trade) Dose Ordered Sig/Lelia Route Start Time Stop Time Status Last Admin Dose Admin Acetaminophen (Tylenol Tab) 1,000 mg NOW STAT PO 07/10/17 13:42 07/10/17 13:44 DC 07/10/17 13:52 1,000 MG Lorazepam (Ativan Tab) 1 mg NOW STAT SL 07/10/17 13:42 07/10/17 13:44 DC 07/10/17 13:52 1 MG Levetiracetam (Keppra Tab) 500 mg NOW STAT PO 07/10/17 16:42 07/10/17 16:43 DC 07/10/17 17:03 500 MG ECG Indication: other (Seizure) Rate (beats per minute): 89 Rhythm: normal sinus Findings: no acute ischemic change, no ectopy ED Course 1305: The patient was evaluated in room B2. A complete history and physical exam was performed. 1342: Ordered Ativan Tab 1 mg SL, Tylenol Tab 1000 mg PO 1608: I reevaluated the patient at this time. He feels better. I will call Neurology and we will get him some lunch. 1617: I spoke with Dr. Prado of Neurology at this time. He recommended starting the patient on Keppra 500 mg PO BID. 1642: Ordered Keppra Tab 500 mg PO 1725: I reevaluated the patient. Discussed results and discharge instructions: He verbalized understanding and agreement. The patient is ready for discharge. Medical Decision Triage Nursing notes reviewed. The patient's presentation and history were concerning for a seizure. Etiologies such as seizure, vasovagal event, infection, hypoglycemia, electrolyte abnormalities, cardiac sources, intracerebral event, toxicologic, neurologic, meningitis, encephalitis, as well as others were entertained. The patient was evaluated. Clinically he was doing well. He is afebrile. He was neurologically intact. He has no meningeal findings. The patient underwent CT imaging which was negative. Chest x-ray was unremarkable. The patient was given Tylenol and Ativan. He rested comfortably. His CBC showed a subtle leukocytosis. No anemia. His chemistry panel was unremarkable. Cardiac markers negative. D-dimer negative. ECG normal. The patient had an unremarkable urinalysis but urine drug screen did show MDMA. The patient is currently taking Wellbutrin. The patient and family history of seizures. He was recently on Klonopin and stopped about a week ago. The patient is also taking Wellbutrin. He also feels that he is under a lot of stress. This could be multifactorial. On reassessment the patient was feeling well. All symptoms resolved. No recurrent seizures. I did consult with neurology. I spoke with Dr. Prado and given the 2 episodes with the complicated history he felt starting Keppra 500 mg twice daily would be very reasonable. The patient will be seen in the office. A dose of Keppra was given in the Emergency Room. He will be prescribed Keppra as an outpatient. This was sent to his pharmacy. The patient also complained of having chest discomfort. That was going on all day since the first episode. There is no abnormality regarding his ECG or enzyme. His d-dimer is also negative. Chest x-ray did not show any acute findings. He did complain also of continued index finger pain and a repeat x-ray was performed. There is no obvious fracture or dislocation. He examines well. There are no signs of infection. I discussed conservative management. He did raise a question about prescription pain medication but given the circumstances I instructed him to use [id number] medications. The patient will follow- up with neurology. He'll also follow up with his primary physician. If he worsens in any way or any recurrent seizures happen he will come back to emergency department for reevaluation. I gave my usual and customary discussion regarding this issue. By the evaluation outlined above other emergent etiologies such as those listed in the differential, as well as others, were deemed relatively unlikely. The patient was educated about the findings as listed above. All questions were answered and the patient was pleased with the treatment. Return instructions were outlined and the patient was discharged in stable condition. The patient was referred to neurology and PCP for follow-up for a recheck of the current condition. Medication Reconcilliation Current Medication List: was personally reviewed by me Blood Pressure Screening Patient's blood pressure: Normal blood pressure Blood pressure disposition: Did not require urgent referral Consults Time Called: 1615 Consulting Physician: Dr. Prado - Neurology Returned Call: [phone] We discussed the patient's case. He recommended starting the patient on Keppra 500 mg PO BID. Impression Primary Impression: Seizure Additional Impressions: Substernal chest pain Contusion of index finger Scribe Attestation The scribe's documentation has been prepared under my direction and personally reviewed by me in its entirety. I confirm that the note above accurately reflects all work, treatment, procedures, and medical decision making performed by me. Departure Information Dispostion Home / Self-Care Prescriptions Levetiracetam (KEPPRA) 500 Mg Tab 1 TAB PO BID for 30 Days, #60 TAB 5 Refills Prov: Mario Galo MD 07/10/17 Referrals No Doctor, Assigned (PCP) Tl Prado M.D. Forms HOME CARE DOCUMENTATION FORM, IMPORTANT VISIT INFORMATION, Work Instructions Patient Instructions My [facility] Additional Instructions Seizure Instructions: Keppra 500 mg twice daily until directed otherwise by neurology. Ibuprofen(Motrin, Advil) may be used for fever or pain. Use 600mg every six hours as needed. Take with food. Avoid using more than 2400mg in a 24 hour period. Do not use 2400mg per day for more than three consecutive days without physician direction. Prolonged inappropriate use can lead to stomach upset or ulcers. (AND/OR) Acetaminophen(Tylenol) may be used for fever or pain. Use 1000mg every six hours as needed. Avoid using more than 4000mg in a 24 hour period. Rest and drink plenty of fluids as tolerated. Continue current medications. No driving until cleared by neurology. Return to the ER for recurrent seizures, passing out, chest pain, headache, persistent vomiting, fevers, abdominal pain, chest pains, difficulty breathing, black or bloody stools, worsening of your condition, or as needed. Follow up with neurology next week for a recheck of your current condition. The number is listed below under Dr. Prado. Follow-up with your primary physician next week for recheck of your current condition as well as recheck of your hand. Problem Qualifiers
== END 2017-07-10 18:22 | disposition home or self-care (01) ==
LOC: EDBD 12:13 → C.EDB 12:14
DX: R56.9 Unspecified convulsions (principal); R07.2 Precordial pain; S60.022A Contusion of left index finger without damage to nail, initial encounter; X58.XXXA Exposure to other specified factors, initial encounter; F41.9 Anxiety disorder, unspecified; J45.909 Unspecified asthma, uncomplicated; Z83.3 Family history of diabetes mellitus; Z82.49 Family history of ischemic heart disease and other diseases of the circulatory system; Z82.0 Family history of epilepsy and other diseases of the nervous system; F17.210 Nicotine dependence, cigarettes, uncomplicated; Z79.899 Other long term (current) drug therapy

== ENCOUNTER 2017-07-12 08:35 | Observation (INO) | payer OTHER ==
[~2017-07-12] VITALS: Ht 175.3 cm; Wt 73.5 kg
[~2017-07-12 08:35] MED LIST changes: +CHLO100T8 PO; +LEVE500T13 PO; -OXYC1TAB3 PO
[2017-07-12] MEDS ORDERED: LEVE500T13 PO (08:51)
--- NOTE | 2017-07-12 09:57 | DIAGNOSTIC IMAGING REPORT ---
CHEST ONE VIEW PORTABLE CLINICAL HISTORY: SEIZURE COMPARISON STUDY: 07/10/2017 FINDINGS: The cardiac and mediastinal contours are normal. There is no evidence of focal pulmonary consolidation. There is no evidence of failure. No pleural effusions are visualized.[ A 5 mm right apical density, likely represents a vascular summation, is no corresponding abnormality was visualized in the prior study IMPRESSION: No active disease in the chest. Electronically signed by: Silvestre Laurent M.D. 07/12/2017 9:56 AM Dictated Date/Time: 07/12/2017 9:56 AM
[2017-07-12] MEDS ORDERED: LEVETIRACETAM IV 1,000 MG in DEXTROSE 5% 100ML 100 ML IV ONE (10:00)
[2017-07-12 10:19] LABS: BASO % 0.3 %; BASO ABS # 0.03 K/uL (0-0.2); COMPLETE YES; EOS % 2.1 %; HEMATOCRIT 47.1 % (42-52); IG% 0.3 %; LYMPH % 13.6 %; LYMPH ABS # 1.53 K/uL (1.2-3.4); MEAN CELL VOLUME 87.7 fL (80-100); MEAN CORPUSCULAR HEMOGLOBIN 30.9 pg (25-34); MEAN CORPUSCULAR HGB CONC 35.2 g/dl (32-36); MEAN PLATELET VOLUME 10.7 fL (7.4-10.4); MONO % 6.1 %; NEUT % 77.6 %; PLATELET COUNT 146 K/uL (130-400); RED BLOOD COUNT 5.37 M/uL (4.7-6.1); WHITE BLOOD COUNT 11.24 K/uL (4.8-10.8)
--- NOTE | 2017-07-12 10:29 | DIAGNOSTIC IMAGING REPORT ---
CT HEAD WITHOUT CONTRAST (CT) CLINICAL HISTORY: SEIZURE HEAD PAIN COMPARISON STUDY: 07/10/2017 TECHNIQUE: Axial CT of the brain is performed from the vertex to the skull base. IV contrast was not administered for this examination. A dose lowering technique was utilized adhering to the principles of ALARA. CT DOSE: 537.48 mGy.cm FINDINGS: No intra or extra-axial mass lesions are visualized. There is no CT evidence of acute cortical infarction. There is no evidence of midline shift. There is no acute hemorrhage. No calvarial fractures are visualized. There is no evidence of pathologic ventricular dilatation. There is no evidence of acute sinusitis IMPRESSION: No acute intracranial findings. Electronically signed by: Silvestre Laurent M.D. 07/12/2017 10:27 AM Dictated Date/Time: 07/12/2017 10:26 AM
[2017-07-12 10:30] LABS: URINE APPEARANCE CLEAR (CLEAR); URINE BILIRUBIN NEG (NEG); URINE COLOR YELLOW; URINE NITRITE NEG (NEG); URINE SPECIFIC GRAVITY 1.021 (1.000-1.030); UROBILINOGEN NEG (NEG)
[2017-07-12 10:34] LABS: PARTIAL THROMBOPLASTIN RATIO 1.1; PROTHROMBIN TIME (PATIENT) 10.9 SECONDS (9.0-12.0)
[2017-07-12 10:37] LABS: MANUAL MICROSCOPIC REQUIRED? NO; REVIEW REQ? NO
[2017-07-12 10:37] LABS: BLOOD UREA NITROGEN 11 mg/dl (7-18); BUN/CREATININE RATIO 10.8 (10-20); CALCIUM 9.3 mg/dl (8.5-10.1); CARBON DIOXIDE 29 mmol/L (21-32); CHLORIDE 103 mmol/L (98-107); CREATININE 1.03 mg/dl (0.60-1.40); GLUCOSE 92 mg/dl (70-99); MAGNESIUM 2.1 mg/dl (1.8-2.4); POTASSIUM 3.8 mmol/L (3.5-5.1); SODIUM 137 mmol/L (136-145)
[2017-07-12] MEDS ORDERED: ACETAMINOPHEN 500 MG TAB PO STA (10:43)
[2017-07-12 10:48] LABS: CKMB/CK RATIO 0.5 (0-3.0)
[2017-07-12] MEDS ORDERED: INFLUENZA ADMINISTRATION CHARGE ONE (12:30)
[2017-07-12] MEDS ORDERED: ONDANSETRON INJ 2 MG/ML 2 ML VIAL IV PRN (12:30)
[2017-07-12] MEDS ORDERED: LORAZEPAM 0.5 MG TAB PO PRN (12:30)
[2017-07-12] MEDS ORDERED: LORAZEPAM 2 MG/ML 1 ML VIAL IV PRN ×2 (12:30)
[2017-07-12] MEDS ORDERED: INFLUENZA VIRUS QUAD VACCINE 0.5 ML SYR IM. ONE (12:30)
[2017-07-12] MEDS ORDERED: ALUMINUM/MAGNESIUM/SIMETH (MAALOX MAX) 30 ML UDC PO PRN (12:30)
[2017-07-12] MEDS ORDERED: ACETAMINOPHEN 325 MG TAB PO PRN (12:30)
[2017-07-12] MEDS ORDERED: CLONAZEPAM 0.5 MG TAB PO PRN (13:00)
--- NOTE | 2017-07-12 13:34 | History and Physical ---
History & Physical Date & Time of Service: Jul 12, 2017 at 13:27 Chief Complaint: Seizure Primary Care Physician: Jarrod Gatica MD History of Present Illness Patient returns to the ER after having seizures refractory to initial attempted outpatient management the patient has both a family history of seizures and has been under increased stress, sleep deprivation and ran out of his clonazepam. The patient was seen in the ER attempted to be treated with heparin with outpatient workup. However the patient did not take his Keppra as directed, did not get much sleep, did drink alcohol, had increased stress in his life, had a witnessed seizure at both at home and here in the emergency department. Emergency department physician contacted neurology on-call they recommended to load the patient with intravenous Keppra and to have the patient come in the hospital for an EEG and MRI scan. The patient is also recommended to continue Keppra 500 twice a day as previously prescribed with no additional medications added. The remainder of his initial screening examination otherwise is unremarkable with regard to serology and repeat CT head Past Medical/Surgical History Medical Problems: (1) Anxiety Status: Chronic (2) Asthma Status: Chronic Family History Diabetes mellitus Hypertension Seizures Social History Smoking Status: Current Every Day Smoker Drug Use: none Marital Status: single Housing status: lives with family Occupational Status: unemployed Multi-Drug Resistant Organisms History of MDRO: No Allergies Coded Allergies: Hydrocodone (Verified Allergy, Severe, GI SYMPTOMS, 07/12/17) CAN'T TAKE THE BRAND WITH RED SPECKLES Tramadol (Verified Allergy, Unknown, GI SYMPTOMS, 07/12/17) Home Medications Scheduled Bupropion (Wellbutrin Sr), 150 MG PO DAILY Chlorpromazine Hcl (Thorazine), 25 MG PO BID Chlorpromazine Hcl (Thorazine), 100 MG PO HS Levetiracetam (Keppra), 500 MG PO BID Scheduled PRN Clonazepam (Klonopin), 0.5 TAB PO BID PRN for Anxiety Review of Systems ROS: well nourished well developed this patient is markedly anxious and voluntarily states he is not sleeping, after his seizure he had chest pain which has now resolved No double vision blurry vision No problems with speech or swallowing No palpitations, or pressure No Wheezing or breathing issues Resolved abdominal pain and no nausea vomiting diarrhea changes in appetite or weight No burning urine urine frequency or changes in color No focal joint pain or muscle pain Patient has psoriasis on his arms and face No unusual bruising or bleeding No focused back pain or numbness or loss of strength No changes in memory or confusion Physical Exam Vital Signs Date Time Temp Pulse Resp B/P (MAP) Pulse Ox O2 Delivery O2 Flow Rate FiO2 07/12/17 12:50 82 07/12/17 12:00 77 13 114/64 99 07/12/17 11:30 69 25 102/49 99 07/12/17 11:00 72 29 101/63 99 07/12/17 10:55 74 19 116/64 99 Room Air 07/12/17 09:55 99 Room Air 07/12/17 09:55 99 Room Air 07/12/17 09:55 80 18 126/67 99 Room Air 07/12/17 09:55 99 Room Air 07/12/17 08:43 77 07/12/17 08:39 36.7 65 16 120/83 97 Room Air General Appearance: WD/WN, + mild distress Head: normocephalic, atraumatic Eyes: PERRL, EOMI Neck: supple, no JVD Respiratory/Chest: chest non-tender, lungs clear, normal breath sounds Cardiovascular: regular rate, rhythm, no murmur Abdomen/GI: normal bowel sounds, non tender, soft Back: no CVA tenderness, no muscle spasm Extremities/Musculoskelatal: no pedal edema, normal range of motion Neurologic/Psych: alert, oriented x 3 Skin: + pertinent finding (circular silver scale well-demarcated raised plaques ) Diagnostics Laboratory Results Results Past 24 Hours Test 07/12/17 09:55 07/12/17 10:02 07/12/17 10:06 Range/Units White Blood Count 11.24 4.8-10.8 K/uL Red Blood Count 5.37 4.7-6.1 M/uL Hemoglobin 16.6 14.0-18.0 g/dL Hematocrit 47.1 42-52 % Mean Corpuscular Volume 87.7 80-100 fL Mean Corpuscular Hemoglobin 30.9 25-34 pg Mean Corpuscular Hemoglobin Concent 35.2 32-36 g/dl Platelet Count 146 130-400 K/uL Mean Platelet Volume 10.7 7.4-10.4 fL Neutrophils (%) (Auto) 77.6 % Lymphocytes (%) (Auto) 13.6 % Monocytes (%) (Auto) 6.1 % Eosinophils (%) (Auto) 2.1 % Basophils (%) (Auto) 0.3 % Neutrophils # (Auto) 8.72 1.4-6.5 K/uL Lymphocytes # (Auto) 1.53 1.2-3.4 K/uL Monocytes # (Auto) 0.69 0.11-0.59 K/uL Eosinophils # (Auto) 0.24 0-0.5 K/uL Basophils # (Auto) 0.03 0-0.2 K/uL RDW Standard Deviation 41.1 36.4-46.3 fL RDW Coefficient of Variation 12.9 11.5-14.5 % Immature Granulocyte % (Auto) 0.3 % Immature Granulocyte # (Auto) 0.03 0.00-0.02 K/uL Prothrombin Time 10.9 9.0-12.0 SECONDS Prothromb Time International Ratio 1.0 0.9-1.1 Activated Partial Thromboplast Time 29.1 21.0-31.0 SECONDS Partial Thromboplastin Ratio 1.1 D-Dimer < 190 0-500 ug/L FEU Sodium Level 137 136-145 mmol/L Potassium Level 3.8 3.5-5.1 mmol/L Chloride Level 103 98-107 mmol/L Carbon Dioxide Level 29 21-32 mmol/L Anion Gap 6.0 3-11 mmol/L Blood Urea Nitrogen 11 7-18 mg/dl Creatinine 1.03 0.60-1.40 mg/dl Est Creatinine Clear Calc Drug Dose 107.8 ml/min Estimated GFR () 114.8 Estimated GFR (Non- 99.1 BUN/Creatinine Ratio 10.8 10-20 Random Glucose 92 70-99 mg/dl Calcium Level 9.3 8.5-10.1 mg/dl Phosphorus Level 2.0 2.5-4.9 mg/dl Magnesium Level 2.1 1.8-2.4 mg/dl Total Creatine Kinase 119 39-308 U/L Creatine Kinase MB 0.6 0.5-3.6 ng/ml Creatine Kinase MB Ratio 0.5 0-3.0 Troponin I < 0.015 0-0.045 ng/ml Thyroid Stimulating Hormone (TSH) 1.180 0.300-4.500 uIu/ml Prolactin 4.96 ng/mL Urine Color YELLOW Urine Appearance CLEAR CLEAR Urine pH 7.0 4.5-7.5 Urine Specific [place] 1.021 1.000-1.030 Urine Protein NEG NEG Urine Glucose (UA) NEG NEG Urine Ketones NEG NEG Urine Occult Blood NEG NEG Urine Nitrite NEG NEG Urine Bilirubin NEG NEG Urine Urobilinogen NEG NEG Urine Leukocyte Esterase NEG NEG Bedside Glucose 85 70-99 mg/dl Diagnostic Radiology Patient normal CT had CXR normal Normal EKG Impression Assessment and Plan 26-year-old male with significant anxiety and psych history presents with recurrent seizures refractory to outpatient treatment but also patient's compliance was in question is Seizure disorder Keppra was loaded in the ER, 500 twice a day he'll continue, patient has been taking daily clonazepam when necessary but he says he is taking it mostly every day this will continue until neurology sees. MRI and EEG are ordered Anxiety and depression we'll maintain his Wellbutrin Thorazine and clonazepam Tobacco abuse counseling was given offered a patch patient declined DVD preventions early ambulation VTE Prophylaxis VTE Risk Assessment Done? Y/N: Yes Risk Level: Moderate Given or contraindicated: Treatment not indicated
[2017-07-12 13:55] VITALS: O2SAT 99
[2017-07-12 14:25] VITALS: BP 136/79; PULSE 80; TEMP 36.3; O2SAT 98
[2017-07-12] MEDS ORDERED: IV FLUIDS COMPLETED PRN (15:00)
--- NOTE | 2017-07-12 15:53 | DIAGNOSTIC IMAGING REPORT ---
Brain MRI WITHOUT CONTRAST HISTORY: seizures TECHNIQUE: Multiplanar multisequence MRI of the brain was performed without the use of contrast. COMPARISON STUDY: Head CT 07/12/2017. FINDINGS: There are no areas of restricted diffusion to suggest acute infarction. The midline structures are intact. The paranasal sinuses are clear. The mastoid air cells are clear. The ventricles and sulci are within normal limits for age. There is no mass, hematoma, midline shift. The major vascular flow-voids at the skull base are well maintained. IMPRESSION: Normal brain MRI. Electronically signed by: Milton Lobo M.D. 07/12/2017 3:51 PM Dictated Date/Time: 07/12/2017 3:45 PM
[2017-07-12 16:22] VITALS: BP 136/79; PULSE 80; TEMP 36.3; Ht 175.3 cm; Wt 73.5 kg
[2017-07-12] MEDS: BuPROPion SR 150 MG TABCR PO SCH (17:07)
[2017-07-12] MEDS: CHLORPROMAZINE HCL 25 MG TAB PO SCH ×2 (17:07→20:44)
--- NOTE | 2017-07-12 17:30 | EMERGENCY ROOM VISIT NOTE ---
History Report prepared by Arlet: Christina Owens Under the Supervision of: Dr. Mario Galo M.D. First contact with patient: 09:35 Chief Complaint: SEIZURE Stated Complaint: SEIZURE Nursing Triage Summary: Patient arrived via EMS. Paramedics report pt mother witnessed pt seizure for approx 3 minutes. Pt was seen Thursday in ED for seizures and prescribed Keppra. Pt states he only took one dose yesterday because he fell asleep and did not take his dose of Keppra this morning. Pt states he was on the phone outside, came in side, threw his phone because he was upset and "that was the last thing I remember". Next memory was his nephew talking to him and then paramedics arriving. Pt c/o head and chest pain. Bilateral head pain. Left chest pain worst but pain is "all the way through my chest" History of Present Illness The patient is a 26 year old male who presents to the Emergency Room with complaints of a seizure occurring this morning. The patient states that he felt fine yesterday, but that he only took 1 dose of Keppra. The patient states that he was stressed yesterday but denies chest pain, cough, fevers, abdominal pain, and headaches yesterday. He states that he had chest pain and a headache that both began after his seizure this morning. He denies hurting himself when he fell down. He denies new rashes, diarrhea, and urinary symptoms. The patient states that he had 1 beer yesterday. He also reports that he only slept for about 2 hours Thursday and Thursday night. The patient was seen in the ED on Thursday the because he had a seizure that occurred early in the morning. EMS was called but the patient refused. The patient had a second seizure and was brought i, which occurred around lunch time. The patient had a work up done and was started on Keppra. He was given a dose in the ED and was discharged. He only took one dose yesterday and had a seizure this morning which was apparently witnessed by his mother. He was talking on the phone and was upset, and then threw his phone. The next thing he remembers is the paramedics arriving. Source of History: patient Onset: this morning Position: other (global) Quality: other (seizure ) Associated Symptoms: + headache, + chest pain, No diarrhea, No urinary symptoms, No rash Review of Systems See HPI for pertinent positives and negatives. A total of ten systems were reviewed and were otherwise negative. Past Medical & Surgical Medical Problems: (1) Anxiety (2) Asthma (3) Seizures Family History Diabetes mellitus Hypertension Seizures Social History Smoking Status: Current Every Day Smoker Alcohol Use: none Drug Use: none Marital Status: single Housing Status: lives with family Occupation Status: unemployed Current/Historical Medications Scheduled Bupropion (Wellbutrin Sr), 150 MG PO DAILY Chlorpromazine Hcl (Thorazine), 25 MG PO BID Chlorpromazine Hcl (Thorazine), 100 MG PO HS Levetiracetam (Keppra), 500 MG PO BID Scheduled PRN Clonazepam (Klonopin), 0.5 TAB PO BID PRN for Anxiety Allergies Coded Allergies: Hydrocodone (Verified Allergy, Severe, GI SYMPTOMS, 07/12/17) CAN'T TAKE THE BRAND WITH RED SPECKLES Tramadol (Verified Allergy, Unknown, GI SYMPTOMS, 07/12/17) Physical Exam Vital Signs Date Time Temp Pulse Resp B/P (MAP) Pulse Ox O2 Delivery O2 Flow Rate FiO2 07/12/17 12:00 77 13 114/64 99 07/12/17 11:30 69 25 102/49 99 07/12/17 11:00 72 29 101/63 99 07/12/17 10:55 74 19 116/64 99 Room Air 07/12/17 09:55 99 Room Air 07/12/17 09:55 99 Room Air 07/12/17 09:55 80 18 126/67 99 Room Air 07/12/17 09:55 99 Room Air 07/12/17 08:43 77 07/12/17 08:39 36.7 65 16 120/83 97 Room Air Physical Exam GENERAL: Awake, alert, well-appearing, in no distress HENT: Normocephalic, atraumatic. Oropharynx unremarkable. EYES: Normal conjunctiva. Sclera non-icteric. NECK: Supple. No nuchal rigidity. FROM. No JVD. RESPIRATORY: Clear to auscultation. CARDIAC: Regular rate, normal rhythm. Extremities warm and well perfused. Pulses equal. ABDOMEN: Soft, non-distended. No tenderness to palpation. No rebound or guarding. No masses. RECTAL: Deferred. MUSCULOSKELETAL: Chest examination reveals no tenderness. The back is symmetrical on inspection without obvious abnormality. There is no CVA tenderness to palpation. No joint edema. LOWER EXTREMITIES: Calves are equal size bilaterally and non-tender. No edema. No discoloration. NEURO: Normal sensorium. No sensory or motor deficits noted. SKIN: No jaundice noted. Diffuse psoriatic rash present. Medical Decision & Procedures ER Provider Diagnostic Interpretation: Radiology results as stated below per my review and radiologist interpretation: CT HEAD WITHOUT CONTRAST (CT) CLINICAL HISTORY: SEIZURE HEAD PAIN COMPARISON STUDY: 07/10/2017 TECHNIQUE: Axial CT of the brain is performed from the vertex to the skull base. IV contrast was not administered for this examination. A dose lowering technique was utilized adhering to the principles of ALARA. CT DOSE: 537.48 mGy.cm FINDINGS: No intra or extra-axial mass lesions are visualized. There is no CT evidence of acute cortical infarction. There is no evidence of midline shift. There is no acute hemorrhage. No calvarial fractures are visualized. There is no evidence of pathologic ventricular dilatation. There is no evidence of acute sinusitis IMPRESSION: No acute intracranial findings. Electronically signed by: Silvestre Laurent M.D. 07/12/2017 10:27 AM Dictated Date/Time: 07/12/2017 10:26 AM CHEST ONE VIEW PORTABLE CLINICAL HISTORY: SEIZURE COMPARISON STUDY: 07/10/2017 FINDINGS: The cardiac and mediastinal contours are normal. There is no evidence of focal pulmonary consolidation. There is no evidence of failure. No pleural effusions are visualized.[ A 5 mm right apical density, likely represents a vascular summation, is no corresponding abnormality was visualized in the prior study IMPRESSION: No active disease in the chest. Electronically signed by: Silvestre Laurent M.D. 07/12/2017 9:56 AM Dictated Date/Time: 07/12/2017 9:56 AM Laboratory Results 07/12/17 09:55 Red Blood Count 5.37, Mean Corpuscular Volume 87.7, Mean Corpuscular Hemoglobin 30.9, Mean Corpuscular Hemoglobin Concent 35.2, Mean Platelet Volume 10.7, Neutrophils (%) (Auto) 77.6, Lymphocytes (%) (Auto) 13.6, Monocytes (%) (Auto) 6.1, Eosinophils (%) (Auto) 2.1, Basophils (%) (Auto) 0.3, Neutrophils # (Auto) 8.72, Lymphocytes # (Auto) 1.53, Monocytes # (Auto) 0.69, Eosinophils # (Auto) 0.24, Basophils # (Auto) 0.03 07/12/17 09:55 Test 07/12/17 09:55 07/12/17 10:02 07/12/17 10:06 White Blood Count 11.24 K/uL (4.8-10.8) Red Blood Count 5.37 M/uL (4.7-6.1) Hemoglobin 16.6 g/dL (14.0-18.0) Hematocrit 47.1 % (42-52) Mean Corpuscular Volume 87.7 fL (80-100) Mean Corpuscular Hemoglobin 30.9 pg (25-34) Mean Corpuscular Hemoglobin Concent 35.2 g/dl (32-36) Platelet Count 146 K/uL (130-400) Mean Platelet Volume 10.7 fL (7.4-10.4) Neutrophils (%) (Auto) 77.6 % Lymphocytes (%) (Auto) 13.6 % Monocytes (%) (Auto) 6.1 % Eosinophils (%) (Auto) 2.1 % Basophils (%) (Auto) 0.3 % Neutrophils # (Auto) 8.72 K/uL (1.4-6.5) Lymphocytes # (Auto) 1.53 K/uL (1.2-3.4) Monocytes # (Auto) 0.69 K/uL (0.11-0.59) Eosinophils # (Auto) 0.24 K/uL (0-0.5) Basophils # (Auto) 0.03 K/uL (0-0.2) RDW Standard Deviation 41.1 fL (36.4-46.3) RDW Coefficient of Variation 12.9 % (11.5-14.5) Immature Granulocyte % (Auto) 0.3 % Immature Granulocyte # (Auto) 0.03 K/uL (0.00-0.02) Prothrombin Time 10.9 SECONDS (9.0-12.0) Prothromb Time International Ratio 1.0 (0.9-1.1) Activated Partial Thromboplast Time 29.1 SECONDS (21.0-31.0) Partial Thromboplastin Ratio 1.1 D-Dimer < 190 ug/L FEU (0-500) Anion Gap 6.0 mmol/L (3-11) Est Creatinine Clear Calc Drug Dose 107.8 ml/min Estimated GFR () 114.8 Estimated GFR (Non- 99.1 BUN/Creatinine Ratio 10.8 (10-20) Calcium Level 9.3 mg/dl (8.5-10.1) Phosphorus Level 2.0 mg/dl (2.5-4.9) Magnesium Level 2.1 mg/dl (1.8-2.4) Total Creatine Kinase 119 U/L (39-308) Creatine Kinase MB 0.6 ng/ml (0.5-3.6) Creatine Kinase MB Ratio 0.5 (0-3.0) Troponin I < 0.015 ng/ml (0-0.045) Thyroid Stimulating Hormone (TSH) 1.180 uIu/ml (0.300-4.500) Prolactin 4.96 ng/mL Urine Color YELLOW Urine Appearance CLEAR (CLEAR) Urine pH 7.0 (4.5-7.5) Urine Specific [place] 1.021 (1.000-1.030) Urine Protein NEG (NEG) Urine Glucose (UA) NEG (NEG) Urine Ketones NEG (NEG) Urine Occult Blood NEG (NEG) Urine Nitrite NEG (NEG) Urine Bilirubin NEG (NEG) Urine Urobilinogen NEG (NEG) Urine Leukocyte Esterase NEG (NEG) Bedside Glucose 85 mg/dl (70-99) Laboratory results reviewed by me Medications Administered Medications (Trade) Dose Ordered Sig/Lelia Route Start Time Stop Time Status Last Admin Dose Admin Levetiracetam 1000 mg/Dextrose 110 ml @ 440 mls/hr ONE ONCE IV 07/12/17 10:00 07/12/17 10:14 DC 07/12/17 10:47 440 MLS/HR ECG Indication: weakness Rate (beats per minute): 65 Rhythm: normal sinus Findings: no acute ischemic change, no ectopy, other (early repolarization ) Change: no significant change ED Course 0940: The patient was evaluated in room B12B. A complete history and physical exam was performed. 1000: Ordered Levetiracetam 1,000 mg/Dextrose 110 ml @ 440 mls/hr IV. 1043: Ordered Acetaminophen 1,000 mg PO. 1141: I discussed the patient's case with Dr. Osorio. She states that it is reasonable to bring the patient in for ECG and MRI. She will see the patient in the hospital tomorrow. 1209: Discussed the patient's case with Dr. Hicks. The patient will be evaluated for further treatment and disposition. 1220: Upon reexamination, the patient was resting. I discussed the test results and treatment plan with him. The patient will be evaluated for further management. Medical Decision Triage Nursing notes reviewed. The patient's presentation and history were concerning for recurrent seizure. Etiologies such as breaking seizure, pseudoseizure, vasovagal event, infection, hypoglycemia, electrolyte abnormalities, cardiac sources, intracerebral event, toxicologic, neurologic, as well as others were entertained. The patient was evaluated. He was afebrile. He had no focal neurologic findings or meningeal findings on examination. Clinically he looked well. This is his third seizure in about 48 hours. He had a dose of IV Keppra administered. The patient was ordered Tylenol. Blood work was performed. The patient had a very subtle leukocytosis but otherwise his CBC was normal. Chemistry panel unremarkable. Cardiac markers and d-dimer negative. His prolactin level was normal. On reassessment he was doing well and was asymptomatic. I did consult with neurology, Dr. Downey. Given the recent events and his multiple risk factors for seizures it was felt that treatment in the hospital would not be unreasonable and she recommended to have him set up for MRI and EEG. She recommended continuing the twice a day 500 mg Keppra. I discussed this with the patient and family. They were comfortable. Consult was placed with internal medicine. Patient was evaluated in the Emergency Room for further management. Medication Reconcilliation Current Medication List: was personally reviewed by [place] Blood Pressure Screening Patient's blood pressure: Normal blood pressure Consults Time Called: 1133 Consulting Physician: Dr. Osorio-Neurology Returned Call: 1141 I discussed the patient's case with Dr. Osorio. She states that it is reasonable to bring the patient in for ECG and MRI. She will see the patient in the hospital tomorrow. Additional Consults: Time Called: 1209 Consulted Physician: Dr. Hicks- [place] Returned Call: 1209 Additional Comments: Discussed the patient's case. The patient will be evaluated for further treatment and disposition. Impression Primary Impression: Seizure Scribe Attestation The scribe's documentation has been prepared under my direction and personally reviewed by me in its entirety. I confirm that the note above accurately reflects all work, treatment, procedures, and medical decision making performed by me. Departure Information Dispostion Being Evaluated By Hospitalist Referrals No Doctor, Assigned (PCP) Patient Instructions My [facility]
[2017-07-12] MEDS: LEVETIRACETAM 500 MG TAB PO SCH (20:44)
[2017-07-12] MEDS ORDERED: PNEUMOCOCCAL ADMINISTRATION CHARGE ONE (21:00)
[2017-07-12] MEDS ORDERED: PNEUMOCOCCAL POLYSACCHARIDES 25 MCG/0.5 ML VIAL/SYR IM. ONE (21:00)
[2017-07-12] MEDS ORDERED: CHLORPROMAZINE HCL 100 MG TAB PO SCH (21:00)
[2017-07-12 23:50] VITALS: BP 111/63; PULSE 70; TEMP 36.5; O2SAT 97
[2017-07-13 05:04] VITALS: BP 114/67; PULSE 61; TEMP 36.3; O2SAT 95
[2017-07-13 05:48] LABS: MEAN CORPUSCULAR HEMOGLOBIN 30.2 pg (25-34); MEAN CORPUSCULAR HGB CONC 34.3 g/dl (32-36); MEAN PLATELET VOLUME 10.7 fL (7.4-10.4); PLATELET COUNT 145 K/uL (130-400); WHITE BLOOD COUNT 8.22 K/uL (4.8-10.8)
[2017-07-13 06:12] LABS: BUN/CREATININE RATIO 8.9 (10-20); CALCIUM 8.6 mg/dl (8.5-10.1); CREATININE 1.18 mg/dl (0.60-1.40); POTASSIUM 3.5 mmol/L (3.5-5.1)
[2017-07-13 07:40] VITALS: BP 126/75; PULSE 75; TEMP 36.2; O2SAT 96
[2017-07-13] MEDS: LEVETIRACETAM 500 MG TAB PO SCH (08:07)
[2017-07-13] MEDS: BuPROPion SR 150 MG TABCR PO SCH (08:27)
[2017-07-13] MEDS: CHLORPROMAZINE HCL 25 MG TAB PO SCH (08:27)
--- NOTE | 2017-07-13 09:02 | EEG Procedure Note ---
EEG Procedure Note Date of Service Jul 13, 2017. Start / End Times Start Time: 6:16 AM End Time: 6:36 AM Referring Physician Kosta Hicks History This is a 26-year-old male who presents with repeat seizures. EEG for further evaluation of seizure etiology. Pertinent medications include Keppra Home Medication List Scheduled Bupropion (Wellbutrin Sr), 150 MG PO DAILY Chlorpromazine Hcl (Thorazine), 25 MG PO BID Chlorpromazine Hcl (Thorazine), 100 MG PO HS Levetiracetam (Keppra), 500 MG PO BID Scheduled PRN Clonazepam (Klonopin), 0.5 TAB PO BID PRN for Anxiety Inpatient Medication List Current Inpatient Medications Medications (Trade) Dose Ordered Sig/Lelia Route Start Time Stop Time Status Last Admin Dose Admin Acetaminophen (Tylenol Tab) 650 mg Q4H PRN PO 07/12/17 12:30 08/11/17 12:29 Al Hydrox/Mg Hydrox/Simethicone (Maalox Max Susp) 15 ml Q4H PRN PO 07/12/17 12:30 08/11/17 12:29 Ondansetron HCl (Zofran Inj) 4 mg Q6H PRN IV 07/12/17 12:30 08/11/17 12:29 Bupropion HCl (Wellbutrin-Sr Tab) 150 mg DAILY PO 07/13/17 09:00 08/12/17 08:59 07/13/17 08:27 150 MG Chlorpromazine HCl (Thorazine Tab) 25 mg BID PO 07/12/17 21:00 08/11/17 20:59 07/13/17 08:27 25 MG Chlorpromazine HCl (Thorazine Tab) 100 mg HS PO 07/12/17 21:00 08/11/17 20:59 07/12/17 20:44 100 MG Levetiracetam (Keppra Tab) 500 mg BID PO 07/12/17 21:00 08/11/17 20:59 07/13/17 08:07 500 MG Lorazepam (Ativan Inj) 1 mg Q4H PRN IV 07/12/17 12:30 08/11/17 12:29 Lorazepam (Ativan Inj) 2 mg Q4H PRN IV 07/12/17 12:30 08/11/17 12:29 Lorazepam (Ativan Tab) 0.5 mg Q6 PRN PO 07/12/17 12:30 08/11/17 12:29 Clonazepam (Klonopin Tab) 0.25 mg BID PRN PO 07/12/17 13:00 08/11/17 12:59 Miscellaneous (Iv Fluids Completed) 1 ea PRN PRN N/A 07/12/17 15:00 07/12/18 14:59 Description This is a 21 electrode EEG with a single channel dedicated to limited EKG. The electrodes were placed in accordance with the International 10-20 system. At the start of this recording the patient was in an awake state. Background was well organized with a symmetric mixture of moderate amplitude alpha and beta frequencies. There was a symmetric moderate amplitude posterior dominant rhythm of 9-10 Hz that was reactive to eye opening and closure. Hyperventilation was not done. Photic stimulation at various frequencies produced no abnormalities. Sleep was indicated by vertex waves and symmetric sleep spindles. Interpretation This is a normal awake and asleep routine EEG There was no electrographic seizures or epileptiform discharges. Clinical Correlation A normal EEG does not rule out epilepsy there is a strong clinical suspicion.
--- NOTE | 2017-07-13 10:04 | Neurology Consultation ---
Neurology Consultation Date of Consultation: Jul 13, 2017. Attending Physician: Ed Clancy MD Primary Care Physician: Jarrod Gatica MD Reason for Consultation: Consultation for new onset seizures History of Present Illness Source: patient, hospital records This is a 26-year-old male who presents for new onset seizures. Patient initially had seizures starting Thursday. Described as having 1 seizure at home and another one in the emergency room. I described as eyes rolling back and shaking all over. There was no tongue biting or urinary incontinence. Patient had a another seizure Thursday morning. Described as suddenly falling down and shaking all over. Patient thinks that he is aware of his left side starting to shake before he loses consciousness and shakes all over. There is reported confusion afterwards and decreased her trouble with language and talking. Reports a headache afterwards. Patient does report increased psychosocial stress recently and decreased sleep. He also ran out of [employer] week and a half ago. When he was initially evaluated in the emergency room on Thursday his tox screen was negative. He is on buspirone for anxiety and depression. He does follow with psychiatry for bipolar. Patient does report one missed medication dose as Thursday evening of Keppra. Patient was just recently initiated on Keppra Thursday evening. Patient denies any side effects to medication at this time. MRI of the brain report and images were reviewed by myself and normal EEG was read by myself this morning and normal In addition the patient also reports frequent severe headaches. Described as having a throbbing quality. Will last hours. Often unilateral in temporal region. He denies any changes with vision. Denies any light or sound sensitivity. Sometimes nauseous. Reports [id number] NSAIDs are ineffective. Typically will try to sleep it off. He gets at least one headache if not multiple headaches per week. Past Medical/Surgical History Medical Problems: (1) Bee sting Status: Acute (2) Contusion of index finger Status: Acute (3) Contusion of left index finger Status: Acute (4) History of asthma Status: Acute (5) Mood disorder Status: Acute (6) Seizure Status: Acute (7) Seizure Status: Acute (8) Substernal chest pain Status: Acute (9) Suicide attempt by hanging Status: Acute (10) Tobacco use disorder Status: Acute (11) Upper respiratory infection Status: Acute Anxiety/depression/bipolar Asthma Family History Mother with seizures. Patient thinks that she is still on medications Social History Patient is normally independent in his activities of daily living. Smokes about 1 pack per day. Noted alcohol use. No illegal drug use. Smoking Status: Current every day smoker Drug Use: none Marital Status: single Housing Status: lives with family Occupation Status: unemployed Allergies Coded Allergies: Hydrocodone (Verified Allergy, Severe, GI SYMPTOMS, 07/12/17) CAN'T TAKE THE BRAND WITH RED SPECKLES Tramadol (Verified Allergy, Unknown, GI SYMPTOMS, 07/12/17) Current Inpatient Medications Current Inpatient Medications Medications (Trade) Dose Ordered Sig/Lelia Route Start Time Stop Time Status Last Admin Dose Admin Acetaminophen (Tylenol Tab) 650 mg Q4H PRN PO 07/12/17 12:30 08/11/17 12:29 Al Hydrox/Mg Hydrox/Simethicone (Maalox Max Susp) 15 ml Q4H PRN PO 07/12/17 12:30 08/11/17 12:29 Ondansetron HCl (Zofran Inj) 4 mg Q6H PRN IV 07/12/17 12:30 08/11/17 12:29 Bupropion HCl (Wellbutrin-Sr Tab) 150 mg DAILY PO 07/13/17 09:00 08/12/17 08:59 07/13/17 08:27 150 MG Chlorpromazine HCl (Thorazine Tab) 25 mg BID PO 07/12/17 21:00 08/11/17 20:59 07/13/17 08:27 25 MG Chlorpromazine HCl (Thorazine Tab) 100 mg HS PO 07/12/17 21:00 08/11/17 20:59 07/12/17 20:44 100 MG Levetiracetam (Keppra Tab) 500 mg BID PO 07/12/17 21:00 08/11/17 20:59 07/13/17 08:07 500 MG Lorazepam (Ativan Inj) 1 mg Q4H PRN IV 07/12/17 12:30 08/11/17 12:29 Lorazepam (Ativan Inj) 2 mg Q4H PRN IV 07/12/17 12:30 08/11/17 12:29 Lorazepam (Ativan Tab) 0.5 mg Q6 PRN PO 07/12/17 12:30 08/11/17 12:29 Clonazepam (Klonopin Tab) 0.25 mg BID PRN PO 07/12/17 13:00 08/11/17 12:59 Miscellaneous (Iv Fluids Completed) 1 ea PRN PRN N/A 07/12/17 15:00 07/12/18 14:59 Review of Systems Complete review of systems otherwise negative except for the above-noted history of present illness Physical Exam Vital Signs (Past 24 Hrs): Date Time Temp Pulse Resp B/P (MAP) Pulse Ox O2 Delivery O2 Flow Rate FiO2 07/13/17 07:45 Room Air 07/13/17 07:40 36.2 75 16 126/75 (92) 96 Room Air 07/13/17 05:04 36.3 61 16 114/67 (83) 95 Room Air 07/13/17 04:00 Room Air 07/13/17 00:00 Room Air 07/12/17 23:50 36.5 70 16 111/63 (79) 97 Room Air 07/12/17 20:00 Room Air 07/12/17 16:22 36.3 80 16 136/79 Room Air 07/12/17 14:25 36.3 80 16 136/79 (98) 98 Room Air 07/12/17 13:55 78 20 116/71 99 Room Air 07/12/17 12:50 82 07/12/17 12:00 77 13 114/64 99 07/12/17 11:30 69 25 102/49 99 07/12/17 11:00 72 29 101/63 99 07/12/17 10:55 74 19 116/64 99 Room Air 07/12/17 09:55 99 Room Air 07/12/17 09:55 99 Room Air 07/12/17 09:55 80 18 126/67 99 Room Air 07/12/17 09:55 99 Room Air Gen.: Patient is alert and sitting in bed, in no acute distress. HEENT: Normocephalic /atraumatic, no scleral icterus Heart: Regular rate and rhythm Extremities: No gross deformities. Appears to have diffuse psoriasis on his skin Neurological examination: Mental status: Patient is alert and oriented x3. Attention and concentration normal for the situation. Good fund of knowledge. Remote and recent memory intact. Speech is fluent without any dysarthria or aphasia noted Cranial nerve: Funduscopic examination was unremarkable. No papilledema. Pupils equally round and reactive to light. Extraocular muscles intact without nystagmus. No facial asymmetry noted. Facial sensation intact. Tongue is midline. Good palatal elevation. Good shoulder shrug bilaterally. Hearing grossly intact to voice. Strength: 5/5 both proximal and distally in all extremities. There is no arm drift. Tone is normal. Sensation: Grossly intact to light touch in all extremities. Deep tendon reflexes: +2 in bilateral biceps, brachioradialis and patellar. Coordination: Patient had good finger to nose without dysmetria Station within the bed was normal Laboratory Results Past 24 Hours: 07/13/17 05:16 07/13/17 05:16 Test 07/12/17 09:55 07/12/17 10:02 07/12/17 10:06 07/13/17 05:16 Immature Granulocyte % (Auto) 0.3 % White Blood Count 11.24 K/uL (4.8-10.8) Red Blood Count 5.37 M/uL (4.7-6.1) 5.00 M/uL (4.7-6.1) Hemoglobin 16.6 g/dL (14.0-18.0) Hematocrit 47.1 % (42-52) Mean Corpuscular Volume 87.7 fL (80-100) 88.0 fL (80-100) Mean Corpuscular Hemoglobin 30.9 pg (25-34) 30.2 pg (25-34) Mean Corpuscular Hemoglobin Concent 35.2 g/dl (32-36) 34.3 g/dl (32-36) Platelet Count 146 K/uL (130-400) Mean Platelet Volume 10.7 fL (7.4-10.4) 10.7 fL (7.4-10.4) Neutrophils (%) (Auto) 77.6 % Lymphocytes (%) (Auto) 13.6 % Monocytes (%) (Auto) 6.1 % Eosinophils (%) (Auto) 2.1 % Basophils (%) (Auto) 0.3 % Neutrophils # (Auto) 8.72 K/uL (1.4-6.5) Lymphocytes # (Auto) 1.53 K/uL (1.2-3.4) Monocytes # (Auto) 0.69 K/uL (0.11-0.59) Eosinophils # (Auto) 0.24 K/uL (0-0.5) Basophils # (Auto) 0.03 K/uL (0-0.2) Immature Granulocyte # (Auto) 0.03 K/uL (0.00-0.02) Prothrombin Time 10.9 SECONDS (9.0-12.0) Prothromb Time International Ratio 1.0 (0.9-1.1) Activated Partial Thromboplast Time 29.1 SECONDS (21.0-31.0) Partial Thromboplastin Ratio 1.1 D-Dimer < 190 ug/L FEU (0-500) Phosphorus Level 2.0 mg/dl (2.5-4.9) Magnesium Level 2.1 mg/dl (1.8-2.4) Total Creatine Kinase 119 U/L (39-308) Creatine Kinase MB 0.6 ng/ml (0.5-3.6) Creatine Kinase MB Ratio 0.5 (0-3.0) Troponin I < 0.015 ng/ml (0-0.045) Thyroid Stimulating Hormone (TSH) 1.180 uIu/ml (0.300-4.500) Prolactin 4.96 ng/mL Urine Color YELLOW Urine Appearance CLEAR (CLEAR) Urine pH 7.0 (4.5-7.5) Urine Specific [place] 1.021 (1.000-1.030) Urine Protein NEG (NEG) Urine Glucose (UA) NEG (NEG) Urine Ketones NEG (NEG) Urine Occult Blood NEG (NEG) Urine Nitrite NEG (NEG) Urine Bilirubin NEG (NEG) Urine Urobilinogen NEG (NEG) Urine Leukocyte Esterase NEG (NEG) Bedside Glucose 85 mg/dl (70-99) RDW Standard Deviation 41.4 fL (36.4-46.3) RDW Coefficient of Variation 13.0 % (11.5-14.5) Anion Gap 4.0 mmol/L (3-11) Est Creatinine Clear Calc Drug Dose 94.1 ml/min Estimated GFR () 97.4 Estimated GFR (Non- 84.1 BUN/Creatinine Ratio 8.9 (10-20) Calcium Level 8.6 mg/dl (8.5-10.1) Imaging As noted above in history of present illness Impression This is a 26-year-old man male with new onset seizures Thursday. Has had a total of 3 events. Events sound possible for epileptic seizures but cannot totally rule out nonepileptic events. No reported side effects to current Keppra that was started Thursday evening. 2) frequent migrainous type headaches Plan Continue Keppra 500 mg twice a day since this was just recently started and the patient did miss a dose before his most recent seizure. Follow-up in neurology clinic in 1 month for reevaluation. Instructed to call sooner if he has any events concerning for breakthrough seizures. Follow-up with psychiatry regarding psychiatric medications. Would recommend at this time avoiding daily Klonopin as sudden discontinuation or withdrawal could cause breakthrough seizures. Also caution with Wellbutrin as this can lower seizure threshold. No driving for 6 months since last seizure. For frequent migrainous headaches, could consider diclofenac, Maxalt or Imitrex as an outpatient as needed.
--- NOTE | 2017-07-13 10:43 | Discharge Instructions ---
Discharge Instructions Date of Service Jul 13, 2017. Admission Reason for Admission: Seizures Discharge Discharge Diagnosis / Problem: seizures Discharge Goals Goal(s): Learn about illness, Diagnostic testing, Therapeutic intervention Activity Recommendations Activity Limitations: as noted below Exercise/Sports Limitations: gradually increase as tolerated Driving or Machine Use: no driving a car or operating heavy machinery for 6 months at a minimum Avoid taking a bath or swimming UNSUPERVISED due to high risk of seizure and drowning. . Instructions / Follow-Up Instructions / Follow-Up From Dr. Clancy: 1. Seizure disorder - * resume your keppra 500mg twice daily every day * try to get good sleep every night; shoot for at least 8 hours nightly * sleep deprivation will make you more susceptible to seizures * avoid excessive amounts of alcohol (no more than 1 serving each day) as that can make you more susceptible to seizures as well * NO DRIVING A CAR OR OPERATING HEAVY MACHINERY FOR 6 MONTHS * avoid taking a tub bath OR swimming unsupervised 2. Bipolar disorder - see your psychiatrist later today as scheduled. 3. Follow-up - * see your family doctor within 1 week * see your neurologist within 2 weeks 4. Return to [facility] if - * you experience recurrent seizures * fever over 100.5 degrees * any other concerns Current Hospital Diet Patient's current hospital diet: Regular Diet Discharge Diet Recommended Diet: Regular Diet Procedures Procedures Performed: MRI brain - normal; no tumors, stroke, blood, etc. EEG - no seizure focus seen. Pending Studies Studies pending at discharge: no Medical Emergencies . Who to Call and When: Medical Emergencies: If at any time you feel your situation is an emergency, please call 911 immediately. . Non-Emergent Contact Non-Emergency issues call your: Primary Care Provider, Neurologist Call Non-Emergent contact if: temperature is above 100.5, you have any medication questions . . "Provider Documentation" section prepared by Ed Clancy. . VTE Core Measure Inpt VTE Proph given/why not?: Treatment not indicated
--- NOTE | 2017-07-13 10:45 | Progress Note ---
Progress Note Date of Service Jul 13, 2017. Progress Note time - 1045 S: no events; feels good no additional seizures confirms he has psych appt today at 1530 O: VSS, no fever gen - nad skin - severe diffuse psoriasis heart - RRR lungs - CTA b/l abd - soft, NT ext - no edema A/P: breakthrough seizures in setting of known seizure d/o d/c home on keppra 500 BID avoid sleep deprivation, excessive etoh use no driving x 6 months ok to d/c home f/u with psych for bipolar later today Mushtaq VITALE MD
[2017-07-13 10:49] VITALS: BP 126/75; PULSE 75; TEMP 36.2; O2SAT 96
--- NOTE | 2017-07-13 23:06 | Discharge Summary ---
Discharge Summary Date of Service Jul 13, 2017. Discharge Summary Admission Date: Jul 12, 2017 at 12:34 Discharge Date: Jul 13, 2017 Discharge Disposition: Home Principal Diagnosis: seizures Problems/Secondary Diagnoses: 1. seizure disorder 2. bipolar disorder 3. anxiety disorder 4. asthma 5. psoriasis Procedures: 1. MRI brain - normal 2. EEG - no seizure spikes Consultations: neurology - Dr. Ruby Llamas Medication Reconciliation Continued Medications: Bupropion (Wellbutrin Sr) 150 Mg Ertab 150 MG PO DAILY, TAB Chlorpromazine Hcl (Thorazine) 25 Mg Tab 25 MG PO BID, TAB Chlorpromazine Hcl (Thorazine) 100 Mg Tab 100 MG PO HS, TAB Clonazepam (Klonopin) 0.5 Mg Tab 0.5 TAB PO BID PRN for Anxiety Levetiracetam (Keppra) 500 Mg Tab 500 MG PO BID Discharge Exam Physical Exam: General Appearance: no apparent distress ENT: pharynx normal Neck: no JVD Respiratory/Chest: lungs clear, no respiratory distress, no accessory muscle use Cardiovascular: regular rate, rhythm, no gallop, no murmur, normal peripheral pulses Abdomen / GI: normal bowel sounds, non tender, soft, no organomegaly Extremities: no pedal edema Neurologic/Psychiatric: alert, oriented x 3 Skin: + rash (severe psoriasis - generalized ) Hospital Course HISTORY OF PRESENT ILLNESS: The patient is a 26 year old male who presented to the Emergency Room with complaints of a seizure on the AM of admission. The seizure was witnessed by his mother. Immediately prior to the seizure he was apparently talking on the phone, got upset, threw his phone, and then proceeded to have a seizure. The patient stated that he felt fine the day prior, but admitted that he only took 1 dose of Keppra. The patient stated that he was stressed/anxious yesterday but denied chest pain, cough, fevers, abdominal pain, or headaches. He stated that he had chest pain and a headache that both began after his seizure this morning. He denied hurting himself when he fell down. He denied new rashes, diarrhea, or urinary symptoms. He reported that he had only slept for about 2 hours Thursday and Thursday night. The patient was seen in the ED on ThursdayJuly 10 because he had had two seizures earlier that day. The patient had a work-up done in the ER that day and was started on Keppra. He was given a dose in the ED and was discharged to home. While awaiting admission in the ED on the day of admission he had another witnessed seizure. HOSPITAL COURSE: Following admission the patient had no further seizures while hospitalized. He underwent MRI of the brain that was normal. EEG was obtained and failed to show a seizure focus. He was seen in consult by [facility] neurology, Dr. Ruby Llamas, who recommended ongoing use of keppra 500mg twice daily after discharge. The patient's breakthrough seizures were felt to be precipitated by poor sleep hygiene, alcohol use, noncompliance with medication, and emotional distress. With respect to his mental health the patient confirmed he had an appointment with his primary psychiatrist on 07/13/17. It seemed that his lack of sleep and extreme anxiety may have been related to his bipolar disorder. He reported compliance with his thorazine. He was counseled that wellbutrin can lower the seizure threshold and that, if he continued to have breakthrough seizures, consideration would need to be given to stopping the wellbutrin. He voiced understanding. Total Time Spent: Greater than 30 minutes This includes examination of the patient, discharge planning, medication reconciliation, and communication with other providers. Discharge Instructions Please refer to the electronic Patient Visit Report (Discharge Instructions) for additional information. Follow-Up 1. Dr. Villarreal - ThursdayJuly 20 at 9:10 am 2. [facility] Neurology Office with Anne Haddad PA-C on ThursdayJuly 27 at 9:30 Additional Copies To Jarrod Gatica MD; Anne Haddad; Josh. Villarreal M.D.
== END 2017-07-13 11:07 | disposition home or self-care (01) ==
LOC: EDBD 08:35 → C.EDB 08:36 → C.MED 12:34 → ENRESERV 12:52
PROVIDERS: ADMIT Internal Medicine; ATTEND Internal Medicine
DX: R56.9 Unspecified convulsions (principal); F41.9 Anxiety disorder, unspecified; F17.210 Nicotine dependence, cigarettes, uncomplicated; Z79.899 Other long term (current) drug therapy; Z82.0 Family history of epilepsy and other diseases of the nervous system; Z82.49 Family history of ischemic heart disease and other diseases of the circulatory system; F31.9 Bipolar disorder, unspecified; L40.9 Psoriasis, unspecified

== ENCOUNTER 2017-09-26 16:44 | Emergency (ER) | payer OTHER ==
[~2017-09-26] VITALS: Ht 175.3 cm; Wt 72.6 kg
[2017-09-26 16:46] VITALS: Ht 175.3 cm; Wt 72.6 kg
[2017-09-26] MEDS ORDERED: KLN1X PO (16:56)
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
[2017-09-26 17:23] VITALS: BP 141/94; PULSE 97; TEMP 36.4; O2SAT 99
== END 2017-09-26 17:24 | disposition home or self-care (01) ==
LOC: C.EDB 16:46 → C.EDD 17:24
DX: H00.015 Hordeolum externum left lower eyelid (principal); F17.210 Nicotine dependence, cigarettes, uncomplicated; J45.909 Unspecified asthma, uncomplicated; F31.9 Bipolar disorder, unspecified; Z86.69 Personal history of other diseases of the nervous system and sense organs; Z91.5 Personal history of self-harm; Z79.899 Other long term (current) drug therapy

== ENCOUNTER 2017-10-28 18:22 | Emergency (ER) | payer OTHER ==
[~2017-10-28] VITALS: Ht 175.3 cm; Wt 74.4 kg
[~2017-10-28 18:22] MED LIST changes: -CLON0.5T3 PO; +KLN1X PO
[2017-10-28 18:31] VITALS: TEMP 36.8; Ht 175.3 cm; Wt 74.4 kg
[2017-10-28] MEDS ORDERED: KETOROLAC TROMETHAMINE 30 MG/ML VIAL IV STA (18:42)
[2017-10-28] MEDS ORDERED: BENZONATATE 100MG CAP PO ONE (18:45)
--- NOTE | 2017-10-28 19:01 | DIAGNOSTIC IMAGING REPORT ---
SINGLE VIEW CHEST CLINICAL HISTORY: Cough FINDINGS: An AP, portable, upright chest radiograph is compared to study dated 07/12/2017. The examination is mildly degraded by portable technique and patient rotation. The cardiomediastinal silhouette is unremarkable. The lungs and pleural spaces are clear. No pneumothorax is seen. The bony thorax is grossly intact. IMPRESSION: No active disease in the chest. Electronically signed by: Gabriel Lan M.D. 10/28/2017 7:00 PM Dictated Date/Time: 10/28/2017 6:59 PM
[2017-10-28 19:20] LABS: BASO % 0.5 %; BASO ABS # 0.05 K/uL (0-0.2); EOS % 4.9 %; EOS ABS # 0.48 K/uL (0-0.5); HEMATOCRIT 47.7 % (42-52); HEMOGLOBIN 16.8 g/dL (14.0-18.0); IG# 0.04 K/uL (0.00-0.02); LYMPH % 21.3 %; LYMPH ABS # 2.09 K/uL (1.2-3.4); MEAN CELL VOLUME 87.5 fL (80-100); MEAN CORPUSCULAR HEMOGLOBIN 30.8 pg (25-34); MEAN CORPUSCULAR HGB CONC 35.2 g/dl (32-36); MEAN PLATELET VOLUME 11.5 fL (7.4-10.4); MONO % 7.9 %; MONO ABS # 0.78 K/uL (0.11-0.59); NEUT ABS # 6.38 K/uL (1.4-6.5); PLATELET COUNT 163 K/uL (130-400); RED CELL DISTRIBUTION WIDTH CV 13.5 % (11.5-14.5); RED CELL DISTRIBUTION WIDTH SD 42.9 fL (36.4-46.3); WHITE BLOOD COUNT 9.82 K/uL (4.8-10.8)
[2017-10-28 19:34] LABS: INFLUENZA B ANTIGEN Neg for Influ B (NEG)
[2017-10-28 19:39] LABS: CALCIUM 8.9 mg/dl (8.5-10.1); CREATININE 1.01 mg/dl (0.60-1.40); POTASSIUM 3.5 mmol/L (3.5-5.1)
[2017-10-28] MEDS ORDERED: AZITHROMYCIN 250 MG TAB PO STA (20:20)
[2017-10-28] MEDS ORDERED: AZIT-57 PO (20:41)
[2017-10-28] MEDS ORDERED: BENZ100C18 PO (20:41)
[2017-10-28 20:46] VITALS: BP 137/73; PULSE 83; O2SAT 97
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
== END 2017-10-28 20:49 | disposition home or self-care (01) ==
LOC: C.EDB 18:23 → C.EDC 20:49
DX: J45.909 Unspecified asthma, uncomplicated (principal); R51 Headache; F17.200 Nicotine dependence, unspecified, uncomplicated; Z88.6 Allergy status to analgesic agent; Z83.3 Family history of diabetes mellitus; Z82.49 Family history of ischemic heart disease and other diseases of the circulatory system; Z82.0 Family history of epilepsy and other diseases of the nervous system

== ENCOUNTER 2017-11-11 23:39 | Emergency (ER) | payer OTHER ==
[~2017-11-11] VITALS: Ht 175.3 cm; Wt 71.6 kg
[~2017-11-11 23:39] MED LIST changes: +AZIT-57 PO
[2017-11-11 23:44] VITALS: O2SAT 94; Ht 175.3 cm; Wt 71.6 kg
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
[2017-11-12 00:25] LABS: BASO % 0.4 %; BASO ABS # 0.05 K/uL (0-0.2); EOS % 1.7 %; EOS ABS # 0.19 K/uL (0-0.5); HEMATOCRIT 47.8 % (42-52); HEMOGLOBIN 17.5 g/dL (14.0-18.0); IG# 0.03 K/uL (0.00-0.02); LYMPH % 15.5 %; LYMPH ABS # 1.73 K/uL (1.2-3.4); MEAN CELL VOLUME 85.1 fL (80-100); MEAN CORPUSCULAR HEMOGLOBIN 31.1 pg (25-34); MEAN CORPUSCULAR HGB CONC 36.6 g/dl (32-36); MEAN PLATELET VOLUME 10.6 fL (7.4-10.4); MONO % 10.9 %; MONO ABS # 1.22 K/uL (0.11-0.59); NEUT % 71.2 %; NEUT ABS # 7.95 K/uL (1.4-6.5); PLATELET COUNT 155 K/uL (130-400); RED CELL DISTRIBUTION WIDTH CV 12.9 % (11.5-14.5); RED CELL DISTRIBUTION WIDTH SD 39.9 fL (36.4-46.3); WHITE BLOOD COUNT 11.17 K/uL (4.8-10.8)
[2017-11-12 00:52] LABS: ALBUMIN 4.2 gm/dl (3.4-5.0); CALCIUM 8.8 mg/dl (8.5-10.1); CREATININE 1.02 mg/dl (0.60-1.40); POTASSIUM 3.1 mmol/L (3.5-5.1)
[2017-11-12 00:55] LABS: TOTAL PROTEIN 7.6 gm/dl (6.4-8.2)
[2017-11-12] MEDS ORDERED: LEVETIRACETAM IV 1,000 MG in DEXTROSE 5% 100ML 100 ML IV ONE (01:45)
[2017-11-12 02:13] VITALS: BP 109/90; PULSE 87; O2SAT 98
== END 2017-11-12 02:15 | disposition home or self-care (01) ==
LOC: EDBD 23:39 → C.EDA 23:40
DX: R56.9 Unspecified convulsions (principal); Z91.14 Patient's other noncompliance with medication regimen; J45.909 Unspecified asthma, uncomplicated; F41.9 Anxiety disorder, unspecified; F32.9 Major depressive disorder, single episode, unspecified; Z83.3 Family history of diabetes mellitus; Z82.49 Family history of ischemic heart disease and other diseases of the circulatory system; Z82.0 Family history of epilepsy and other diseases of the nervous system; F17.200 Nicotine dependence, unspecified, uncomplicated; Z88.5 Allergy status to narcotic agent

== ENCOUNTER 2017-12-05 10:58 | Emergency (ER) | payer OTHER ==
[~2017-12-05] VITALS: Ht 182.9 cm; Wt 71.2 kg
[~2017-12-05 10:58] MED LIST changes: -AZIT-57 PO
[2017-12-05 11:00] VITALS: TEMP 36.8; Ht 182.9 cm; Wt 71.2 kg
[2017-12-05] MEDS ORDERED: LEVETIRACETAM 500 MG TAB PO ONE (12:15)
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
[2017-12-05 12:36] VITALS: BP 117/79; PULSE 74; O2SAT 95
== END 2017-12-05 12:47 | disposition home or self-care (01) ==
LOC: EDBD 10:58 → C.EDC 10:59
DX: R56.9 Unspecified convulsions (principal); J45.909 Unspecified asthma, uncomplicated; F41.9 Anxiety disorder, unspecified; F31.9 Bipolar disorder, unspecified; F32.9 Major depressive disorder, single episode, unspecified; F17.200 Nicotine dependence, unspecified, uncomplicated; Z88.5 Allergy status to narcotic agent

== ENCOUNTER 2017-12-05 16:05 | Inpatient (IN) | payer OTHER ==
[~2017-12-05] VITALS: Ht 175.3 cm; Wt 70.2 kg
[~2017-12-05 16:05] MED LIST changes: +SODIUM CHLORIDE 0.9% 10ML FLUSH IV ONE
[2017-12-05 17:08] LABS: BASO % 0.5 %; BASO ABS # 0.04 K/uL (0-0.2); EOS % 2.4 %; EOS ABS # 0.19 K/uL (0-0.5); HEMATOCRIT 46.1 % (42-52); HEMOGLOBIN 16.2 g/dL (14.0-18.0); IG# 0.02 K/uL (0.00-0.02); LYMPH ABS # 1.89 K/uL (1.2-3.4); MEAN CELL VOLUME 86.3 fL (80-100); MEAN CORPUSCULAR HEMOGLOBIN 30.3 pg (25-34); MEAN CORPUSCULAR HGB CONC 35.1 g/dl (32-36); MEAN PLATELET VOLUME 10.8 fL (7.4-10.4); MONO % 13.6 %; MONO ABS # 1.07 K/uL (0.11-0.59); NEUT % 59.2 %; NEUT ABS # 4.67 K/uL (1.4-6.5); PLATELET COUNT 175 K/uL (130-400); RED CELL DISTRIBUTION WIDTH CV 12.8 % (11.5-14.5); RED CELL DISTRIBUTION WIDTH SD 40.6 fL (36.4-46.3); WHITE BLOOD COUNT 7.88 K/uL (4.8-10.8)
[2017-12-05] MEDS ORDERED: NICOTINE 14 MG/24 HR TDSY TD SCH (17:30)
[2017-12-05 17:34] LABS: ALBUMIN 4.2 gm/dl (3.4-5.0); CALCIUM 8.9 mg/dl (8.5-10.1); CREATININE 1.18 mg/dl (0.60-1.40); POTASSIUM 3.2 mmol/L (3.5-5.1)
[2017-12-05 17:45] LABS: TOTAL PROTEIN 7.9 gm/dl (6.4-8.2)
[2017-12-05] MEDS ORDERED: SODIUM CHLORIDE 0.9% 1000ML 2,000 ML IV STA (19:34)
[2017-12-05] MEDS ORDERED: LORAZEPAM 2 MG/ML 1 ML VIAL IV STA (19:36)
[2017-12-05] MEDS ORDERED: POTASSIUM CHLORIDE 20 MEQ TABCR PO STA (19:54)
[2017-12-05] MEDS ORDERED: MAGNESIUM SULFATE 1GM / D5W 1 GM in PREMIXED IN D5W 100 ML IV STA (20:26)
--- NOTE | 2017-12-05 20:54 | Medical Consult ---
Consultation Date of Consultation: Dec 05, 2017. Attending Physician: History of Present Illness 27 y/o M Hx bipolar disease, depression, polysubstance abuse, seizure disorder. The pt presented following a seizure and also had a nose bleed at the time of arrival. He admitted to skipping his Keppra the prior evening. It was also mentioned by a relative that the pt had taken 10 Wellbutrin the previous evening in an attempt to kill himself. The pt was tachycardic and exhibited tremors on initial evaluation by the ER. As there was concern for Wellbutrin toxicity form the previous evening, medical admission was requested. On speaking to the pt, he denies suicidal ideation or any attempt at self harm. He states that he took 4 Wellbutrin in order to quell his anxiety. He is not tachycardic or tremulous at the time of my evaluation. Past Medical/Surgical History Medical Problems: (1) Anxiety Status: Chronic (2) Bipolar Disorder, Unspecified Status: Chronic (3) Bronchitis Status: Acute (4) Depression Status: Chronic (5) History of asthma Status: Chronic (6) Hordeolum externum left lower eyelid Status: Acute (7) Noncompliance with medications Status: Acute (8) Psoriasis, Unspecified Status: Chronic (9) Seizure Status: Acute (10) Seizure Status: Acute (11) Seizures Status: Chronic Family History Diabetes mellitus Hypertension Seizures Social History Smoking Status: Current Every Day Smoker Drug Use: none Marital Status: single Housing Status: lives with family Occupation Status: employed Allergies Coded Allergies: Hydrocodone (Verified Allergy, Severe, GI SYMPTOMS, 12/05/17) CAN'T TAKE THE BRAND WITH RED SPECKLES Tramadol (Verified Allergy, Unknown, GI SYMPTOMS, 12/05/17) Current Inpatient Medications Current Inpatient Medications Medications (Trade) Dose Ordered Sig/Lelia Route Start Time Stop Time Status Last Admin Dose Admin Nicotine (Nicoderm Cq 14MG Patch) 1 patch ONE TD 12/05/17 17:30 01/04/18 17:29 Sodium Chloride 2,000 ml @ 999 mls/hr Q2H1M STAT IV 12/05/17 19:34 12/05/17 21:34 Review of Systems Constitutional: No fever, No chills, No sweats Eyes: No worsening of vision ENT: No hearing loss, No nasal symptoms Respiratory: No cough, No sputum, No wheezing Cardiovascular: No chest pain, No PND Abdomen: No pain, No nausea, No vomiting Musculoskeletal: No joint pain Genitourinary - Male: No hematuria, No dysuria Neurologic: + problem reported (Seizure reported) Psychiatric: No depression symptoms Endocrine: No fatigue Hematologic / Lymphatic: No abnormal bleeding/bruising Integumentary: + problem reported (Rash - psoriatic over arms) Allergic / Immunologic: No environmental allergies Physical Exam Date Time Temp Pulse Resp B/P (MAP) Pulse Ox O2 Delivery O2 Flow Rate FiO2 12/05/17 16:08 36.9 109 17 137/87 96 Room Air General Appearance: WD/WN, no apparent distress Head: normocephalic Eyes: normal inspection ENT: normal ENT inspection, pharynx normal Neck: supple, no JVD Respiratory/Chest: chest non-tender, lungs clear, normal breath sounds Cardiovascular: regular rate, rhythm, normal peripheral pulses Abdomen/GI: normal bowel sounds, non tender, soft Genitourinary - Male: normal male genitalia Back: normal inspection, no CVA tenderness Extremities/Musculoskelatal: normal inspection, no calf tenderness, normal range of motion Neurologic/Psych: neon molder II-XII nml as tested, no motor/sensory deficits, alert, oriented x 3 Skin: + pertinent finding (Psoriatic rash) Laboratory Results Last 24 Hours Test 12/05/17 16:45 12/05/17 17:40 12/05/17 19:48 White Blood Count 7.88 K/uL Red Blood Count 5.34 M/uL Hemoglobin 16.2 g/dL Hematocrit 46.1 % Mean Corpuscular Volume 86.3 fL Mean Corpuscular Hemoglobin 30.3 pg Mean Corpuscular Hemoglobin Concent 35.1 g/dl Platelet Count 175 K/uL Mean Platelet Volume 10.8 fL Neutrophils (%) (Auto) 59.2 % Lymphocytes (%) (Auto) 24.0 % Monocytes (%) (Auto) 13.6 % Eosinophils (%) (Auto) 2.4 % Basophils (%) (Auto) 0.5 % Neutrophils # (Auto) 4.67 K/uL Lymphocytes # (Auto) 1.89 K/uL Monocytes # (Auto) 1.07 K/uL Eosinophils # (Auto) 0.19 K/uL Basophils # (Auto) 0.04 K/uL RDW Standard Deviation 40.6 fL RDW Coefficient of Variation 12.8 % Immature Granulocyte % (Auto) 0.3 % Immature Granulocyte # (Auto) 0.02 K/uL Sodium Level 137 mmol/L Potassium Level 3.2 mmol/L Chloride Level 108 mmol/L Carbon Dioxide Level 27 mmol/L Anion Gap 2.0 mmol/L Blood Urea Nitrogen 10 mg/dl Creatinine 1.18 mg/dl Est Creatinine Clear Calc Drug Dose 91.9 ml/min Estimated GFR () 96.8 Estimated GFR (Non- 83.5 BUN/Creatinine Ratio 8.6 Random Glucose 81 mg/dl Calcium Level 8.9 mg/dl Total Bilirubin 0.5 mg/dl Direct Bilirubin 0.2 mg/dl Aspartate Amino Transf (AST/SGOT) 18 U/L Alanine Aminotransferase (ALT/SGPT) 25 U/L Alkaline Phosphatase 133 U/L Total Protein 7.9 gm/dl Albumin 4.2 gm/dl Thyroid Stimulating Hormone (TSH) 0.934 uIu/ml Ethyl Alcohol mg/dL < 3.0 mg/dl Urine Color YELLOW Urine Appearance CLEAR Urine pH 6.5 Urine Specific [place] 1.018 Urine Protein NEG Urine Glucose (UA) TRACE Urine Ketones NEG Urine Occult Blood NEG Urine Nitrite NEG Urine Bilirubin NEG Urine Urobilinogen NEG Urine Leukocyte Esterase NEG Urine Opiates Screen NEG Urine Methadone, Qualitative NEG Urine Barbiturates NEG Urine Phencyclidine (PCP) Level NEG Ur Amphetamine/Methamphetamine NEG MDMA (Ecstasy) Screen POS Urine Benzodiazepines Screen NEG Urine Cocaine Metabolite NEG Urine Marijuana (THC) POS Assessment & Plan 27 y/o M Hx bipolar disease, depression, polysubstance abuse, seizure disorder. The pt presented following a seizure and also had a nose bleed at the time of arrival. He admitted to skipping his Keppra the prior evening. It was also mentioned by a relative that the pt had taken 10 Wellbutrin the previous evening in an attempt to kill himself. The pt was tachycardic and exhibited tremors on initial evaluation by the ER. As there was concern for Wellbutrin toxicity form the previous evening, medical admission was requested. On speaking to the pt, he denies suicidal ideation or any attempt at self harm. He states that he took 4 Wellbutrin in order to quell his anxiety. He is not tachycardic or tremulous at the time of my evaluation. 1) Reported suicide attempt - possible Wellbutrin toxicity. The pt denies the above, however, the medical tea is asked to evaluate for medical admission and we do not currently have any criteria. He does not exhibit tremors, tachycardia , AMS and does not have any concerning EKG abnormalities. From a medical standpoint, the pt can proceed to the psychiatric unit at the discretion of the mental health service, 2) Seizure - Likely due to noncompliance with Keppra 3) Mild hypokalemia noted on initial labs - K and Mg ordered 4) Epistaxis on arrival has resolved 5) Bipolar disease - likely needs a medication adjustment if he felt like he needed additional Wellbutrin to treat his anxiety - this is left to te discretion of mental health 6) Tobacco and substance abuse - denies recent issues - would advise on cessation prior to DC Total time for this consult including review of labs, meds, records, EKG - discussion with pt and ER attending - 36 min
[2017-12-05] MEDS ORDERED: CHLORPROMAZINE HCL 100 MG TAB PO SCH (21:00)
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
[2017-12-05] MEDS: LEVETIRACETAM 500 MG TAB PO SCH (21:43)
[2017-12-05] MEDS ORDERED: POTASSIUM CHLORIDE 10 MEQ TABCR PO STA (22:07)
[2017-12-05 23:40] VITALS: O2SAT 98
[2017-12-06] MEDS ORDERED: NURSING VERBAL MED ORDER ONE
--- NOTE | 2017-12-06 00:24 | EMERGENCY ROOM VISIT NOTE ---
ED Visit Note First contact with patient: 23:30 [address] Hartley and 302 signed due to suicide attempt yesterday evening. Medically evaluated by hospitalist and felt medically stable. Admitted to [address] [place] [address] for further management of psychiatric condition.
[2017-12-06] MEDS ORDERED: hydrOXYzine HCL 25 MG TAB PO PRN ×2 (00:45)
[2017-12-06] MEDS ORDERED: BISMUTH SUBSALICYLATE PER ML OMNICELL CHARGE PO PRN (00:45)
[2017-12-06] MEDS ORDERED: ACETAMINOPHEN 325 MG TAB PO PRN (00:45)
[2017-12-06] MEDS ORDERED: MAGNESIUM HYDROXIDE SUSP 30 ML UDC PO PRN (00:45)
[2017-12-06] MEDS ORDERED: SODIUM CHLORIDE 0.65% NA SOLN 45 ML (OCEAN) PRN (00:45)
[2017-12-06] MEDS ORDERED: ALUMINUM/MAGNESIUM SUSP 30 ML UDC PO PRN (00:45)
[2017-12-06] MEDS ORDERED: NICOTINE POLACRILEX 2 MG GUM MT PRN (00:45)
[2017-12-06 04:51] VITALS: BP 112/60; PULSE 78; TEMP 36.9; Ht 175.3 cm; Wt 70.2 kg
[2017-12-06 06:57] VITALS: BP_SYST 106; BP_SYST 114; BP_DIAS 65; BP_DIAS 70; PULSE 73; PULSE 86; TEMP 36.3
[2017-12-06] MEDS: CLONAZEPAM 1 MG TAB PO PRN ×2 (08:29→21:20)
[2017-12-06] MEDS: LEVETIRACETAM 500 MG TAB PO SCH ×2 (08:29→21:17)
[2017-12-06] MEDS ORDERED: CHLORPROMAZINE HCL 25 MG TAB PO SCH (09:00)
[2017-12-06] MEDS ORDERED: NICOTINE 14 MG/24 HR TDSY TD SCH (09:00)
--- NOTE | 2017-12-06 09:28 | Hospitalist Progress Note ---
Hospitalist Progress Note Date of Service Dec 06, 2017. (Gabriel Welch PA-C) Subjective Pt evaluation today including: conversation w/ patient, physical exam, chart review, lab review Pain: None Voiding: no voiding problems Patient seen and examined at bedside in room 325. No further seizures since admission. Was given morning dose of Keppra. Keppra levels still pending. No further tachycardia. No fever or chills. States that the reason he came to the ED was for nosebleeds. Has some blood when he came in this morning. No SOB. No hemoptysis. Daily smoker. Used to use snuff but has not chewed for a couple of years. Patient notes history of psoriasis since teenage years Constitutional: No fever Respiratory: No cough, No sputum Cardiovascular: No chest pain, No palpitations Abdomen: No pain, No nausea, No vomiting Male : No dysuria, No hematuria Neurologic: + problem reported (No further seizures), No memory loss Psychiatric: + problem reported (Argumentative and angry) Heme: + abnormal bleeding/bruising (Reports nosebleed with no evidence of epistaxis on exam) Skin: No rash, No itch All Other Systems: Reviewed and Negative (Gabriel Welch PA-C) Medications Home Meds and Scripts Medications Dose Route/Sig Max Daily Dose Days Date Category Clonazepam 1 Mg Tab 1 Mg PO BID PRN 09/26/17 Reported Keppra (Levetiracetam) 500 Mg Tab 500 Mg PO BID 07/12/17 Reported Thorazine (Chlorpromazine HCl) 100 Mg Tab 100 Mg PO HS 07/10/17 Reported Wellbutrin Sr (Bupropion HCl) 150 Mg Ertab 150 Mg PO DAILY 06/30/17 Reported Thorazine (Chlorpromazine HCl) 25 Mg Tab 25 Mg PO QAM 06/30/17 Reported Current Inpatient Medications Medications (Trade) Dose Ordered Sig/Lelia Route Start Time Stop Time Status Last Admin Dose Admin Clonazepam (Klonopin Tab) 1 mg BID PRN PO 12/05/17 20:00 01/04/18 19:59 12/06/17 08:29 1 MG Levetiracetam (Keppra Tab) 500 mg BID PO 12/05/17 21:00 01/04/18 20:59 12/06/17 08:29 500 MG Nicotine (Nicoderm Cq 14MG Patch) 1 patch QAM TD 12/06/17 09:00 01/05/18 08:59 12/06/17 08:29 1 PATCH Miscellaneous (Remove Nicoderm Patch) 1 ea DAILY@2200 N/A 12/06/17 22:00 01/05/18 21:59 Nicotine Polacrilex (Nicorette 2MG Gum) 1-2 PIECES Q2H PRN MT 12/06/17 00:45 01/05/18 00:44 Acetaminophen (Tylenol Tab) 650 mg Q4H PRN PO 12/06/17 00:45 01/05/18 00:44 Al Hydroxide/Mg Hydroxide (Maalox Susp) 30 ml Q4H PRN PO 12/06/17 00:45 01/05/18 00:44 Bismuth Subsalicylate (Kaopectate Liqd) 15 ml DAILY PRN PO 12/06/17 00:45 01/05/18 00:44 Magnesium Hydroxide (Milk Of Magnesia Susp) 30 ml DAILY PRN PO 12/06/17 00:45 01/05/18 00:44 Sodium Chloride ([place] Nasal [place]) PRN PRN NA 12/06/17 00:45 01/05/18 00:44 Hydroxyzine HCl (Vistaril Tab) 50 mg HSZ PRN PO 12/06/17 00:45 01/05/18 00:44 Hydroxyzine HCl (Vistaril Tab) 25 mg Q4H PRN PO 12/06/17 00:45 01/05/18 00:44 (Gabriel Welch-Moises) Objective Vital Signs Date Time Temp Pulse Resp B/P (MAP) Pulse Ox O2 Delivery O2 Flow Rate FiO2 12/06/17 06:57 36.3 73 16 114/70 86 106/65 12/06/17 04:51 36.9 78 16 112/60 12/05/17 23:40 68 12 128/64 98 Room Air 12/05/17 21:13 71 12 131/66 98 Room Air 12/05/17 16:08 36.9 109 17 137/87 96 Room Air (Gabrile Welch-C) Physical Exam Notes: Vital Signs - as noted below Laboratory Data - as noted below Physical Exam: General - NAD Skin: Psoriatic lesions over entire body. No discharge. Appears that patient has been "picking" arm lesions Eyes - No icterus, gaze conjugate ENT - Mucosa moist, no lesions or candidiasis. No septal breach. No evidence of epistaxis. Mucosa dry. No hyperemia in posterior oropharynx or nares Neck - Supple, No JVD Lungs - No bronchospasm, rales, or rhonchi. Heart - Regular, rate controlled Abdomen - Soft, NT, ND, BS present Extremities - No edema, pedal pulses intact Neuro - A&OX3 (Gabriel Welch PA-C) Laboratory Results Last 24 Hours Test 12/05/17 16:45 12/05/17 17:40 12/05/17 19:48 White Blood Count 7.88 K/uL Red Blood Count 5.34 M/uL Hemoglobin 16.2 g/dL Hematocrit 46.1 % Mean Corpuscular Volume 86.3 fL Mean Corpuscular Hemoglobin 30.3 pg Mean Corpuscular Hemoglobin Concent 35.1 g/dl Platelet Count 175 K/uL Mean Platelet Volume 10.8 fL Neutrophils (%) (Auto) 59.2 % Lymphocytes (%) (Auto) 24.0 % Monocytes (%) (Auto) 13.6 % Eosinophils (%) (Auto) 2.4 % Basophils (%) (Auto) 0.5 % Neutrophils # (Auto) 4.67 K/uL Lymphocytes # (Auto) 1.89 K/uL Monocytes # (Auto) 1.07 K/uL Eosinophils # (Auto) 0.19 K/uL Basophils # (Auto) 0.04 K/uL RDW Standard Deviation 40.6 fL RDW Coefficient of Variation 12.8 % Immature Granulocyte % (Auto) 0.3 % Immature Granulocyte # (Auto) 0.02 K/uL Sodium Level 137 mmol/L Potassium Level 3.2 mmol/L Chloride Level 108 mmol/L Carbon Dioxide Level 27 mmol/L Anion Gap 2.0 mmol/L Blood Urea Nitrogen 10 mg/dl Creatinine 1.18 mg/dl Est Creatinine Clear Calc Drug Dose 91.9 ml/min Estimated GFR () 96.8 Estimated GFR (Non- 83.5 BUN/Creatinine Ratio 8.6 Random Glucose 81 mg/dl Calcium Level 8.9 mg/dl Total Bilirubin 0.5 mg/dl Direct Bilirubin 0.2 mg/dl Aspartate Amino Transf (AST/SGOT) 18 U/L Alanine Aminotransferase (ALT/SGPT) 25 U/L Alkaline Phosphatase 133 U/L Total Protein 7.9 gm/dl Albumin 4.2 gm/dl Thyroid Stimulating Hormone (TSH) 0.934 uIu/ml Ethyl Alcohol mg/dL < 3.0 mg/dl Urine Color YELLOW Urine Appearance CLEAR Urine pH 6.5 Urine Specific [place] 1.018 Urine Protein NEG Urine Glucose (UA) TRACE Urine Ketones NEG Urine Occult Blood NEG Urine Nitrite NEG Urine Bilirubin NEG Urine Urobilinogen NEG Urine Leukocyte Esterase NEG Urine Opiates Screen NEG Urine Methadone, Qualitative NEG Urine Barbiturates NEG Urine Phencyclidine (PCP) Level NEG Ur Amphetamine/Methamphetamine NEG MDMA (Ecstasy) Screen POS Urine Benzodiazepines Screen NEG Urine Cocaine Metabolite NEG Urine Marijuana (THC) POS Salicylates Level 2.1 mg/dl Acetaminophen Level < 2 ug/ml (Gabriel Welch PA-C) Assessment and Plan SEIZURE DISORDER * Patient reports missing a dose of Keppra prior to seizure * Patient reports that whenever he has missed anti-epileptic medications he typically has had seizures * Keppra levels pending * Received Keppra this morning * Continue Keppra per outpatient dosing * If patient has suspected seizure would consider EEG and consult neurology TACHYCARDIA * Resolved * Most likely etiology is secondary to seizures * Vital signs per protocol EPISTAXIS * No evidence of epistaxis on physical exam * H&H stable with a hemoglobin level of 16.2 * [place] nasal spray * Follow clinically BIPOLAR DISORDER * Management per psychiatry * Continue meds per psychiatry TOBACCO ABUSE * Stress need for smoking cessation * Continue nicotine patch HYPOKALEMIA * Received 80 mEq of potassium chloride yesterday * Follow serial labs * Replete as necessary DVT PROPHYLAXIS * No indication for chemical prophylaxis * Patient ambulating Thank you for including us in the care of this patient. We will sign off at this time. Please feel free to reconsult as needed. (Gabriel Welch PA-C) Supervising Note Dr. Benites I performed a history and physical examination on the patient. I reviewed above note and agree with it. I discussed plan with APC and patient. During my face to face encounter with the patient, I answered all of the patient's questions. will check keppra level. Gabriel Welch will followup level while patient is in mental health. For the mean time, will sign off above case. (Justen Benites M.D.)
[2017-12-06] MEDS: NICOTINE 21 MG/24 HR TDSY TD SCH (10:48)
[2017-12-06] MEDS: CHLORPROMAZINE HCL 25 MG TAB PO SCH (10:48)
--- NOTE | 2017-12-06 13:16 | Psychiatric History & Physical ---
History Date of Service Dec 06, 2017. Identifying Data Scooby Smith is a 27-year-old male admitted on Dec 05, 2017 at 23:56 who currently lives with mother. Scooby Smith was admitted on a 302 involuntary commitment. Patient is admitted from home. The patient was brought back to the ED by security after originally leaving the ER due to the 302 process. Information from the pt is consider to be overall reliable Chief Complaint "my mother stated I tried to kill myself but that is not what I did." History of Present Illness reported bipolar and anxiety d/o with h/o ADHD per pt. depression that pt states is tied to stressors trevon degree of deaths over past few years including a friend who hang himself in 2016 and 2 friends who perhaps by OD, along with his step father's suicide in 2012 by shooting himself. Pt served 17 months in halfway for aggravated assault of his ex in 2014 and is on parole and tested positive for Cannabis in October leading him to have a GPS tracker for 60 days that might end December 2015. Pt is living wit his mother and he appears to have a conflicted volatile relationship with her while also depending on her to help remind him of taking his meds and other sources of support whirl viewing her as not caring about him and his health. He feels that she indicated incorrectly that he tried to kill himself with 10 extra pills of wellbutrin. Instead he claims he took 2 extra wellbutrin 150mg pills while at a friends place and indicated to his mother that he took the pills to try to alleviate his depressed mood. He endorsed and exhibited a volatile tendency to anger when frustrated. He denied HI or SI or recent physical aggressive behaviors in the past year. He denied psychotic features.He denied awareness of h/o full manic episodes. HE endorsed h/o ADHD and feels that this is more the issue with his scattered and impulsivity behaviors and speech and thought process. He is frustrated that he needs ot obtain more testing before his psychiatrist would more directly address his ADHD with other meds. HE feels that cannabis helps settl him down. He finds his Thorazine script of 25mg am and 100mg hs is calming for him and alleviating and helps him manage his anger better and he noticed sedation at 50mg am and weary ot adjust the dose in any way at this time. He uses klonopin 1mg 1-2 times a day as needed for anxiety/agitation but was out of it for a couple weeks recently after missing his [facility] appt in late October. He denied consistent depressive symptoms instead indicating mood lability and easily depressed mood at times. Past Psychiatric History Current OP Treatment: psychiatrist (Dr. Welsh), therapist ([facility], group and individual) Prior OP Treatment: psychiatrist, therapist Prior Psych Hospitalizations: [facility] (3 prior admissions) Suicide Attempts: Yes (including a serious hang attempt in Spring 2016) Past Medication Trials seroquel - (in halfway, was switched after a while but pt found it helpful and calming, risperdal (does not recall detials) lithium possible pt not sure. Concerta as a child and switched for a bit to ritalin or Adderal per pt Past Medical/Surgical History History of Concussion/Seizure: Yes (Sz disorder, on Kepra) (1) Hypokalemia (2) Tobacco use disorder (3) History of asthma (4) Psoriasis (5) Seizure disorder Allergies Allergies: Coded Allergies: Hydrocodone (Verified Allergy, Severe, GI SYMPTOMS, 12/05/17) CAN'T TAKE THE BRAND WITH RED SPECKLES Tramadol (Verified Allergy, Unknown, GI SYMPTOMS, 12/05/17) Home Medications Scheduled Chlorpromazine Hcl (Thorazine), 25 MG PO QAM Chlorpromazine Hcl (Thorazine), 100 MG PO HS Levetiracetam (Keppra), 500 MG PO BID Scheduled PRN Clonazepam (Clonazepam), 1 MG PO BID PRN for Anxiety/Agitation Family History Diabetes mellitus Hypertension Seizures History of Suicide: No Psychiatric History: No Alcohol Use Alcohol Use In Past 12 Months: No AUDIT Total Score: 1 past h/o extensive heavy drinking, denied since halfway time starting in 2015 Smoking Use Smoking Status: Current Every Day Smoker Substance History cannabis, last used 3-4 weeks ago per pt, pt had a positive test as part of parole so has 60 days of wearing GPS tracker due to come off January 16. pt tested positive in ER drug tox on admission, pt has remote history of various extensive drug usage of lsd, heorin, cocaine that ceased about 8-10 years ago per pt Personal History Lives in: with mother in [place], [place] Education: other (education stopped in 10th grade) Work History: [employer] past 13 months Relationship History: Children: daughter age 5, no custody of;son age 9 aiming for partial custody of Legal History: reported (aggravated assault ex served 17 months till Sep 2016; on probation) Psychological Trauma History: Denies Hx Traumatic Event, Significant Loss ( stillborn ; of 3 friends over past few years, of stepfather) Review of Systems Constitutional: denies no symptoms reported, denies see HPI, denies chills, denies diaphoresis, denies fever, denies malaise, denies weakness, denies other ENT: reports: other (mild nose bleeds), denies: no symptoms reported, see HPI, ear pain, ear discharge, loss of hearing, tinnitus, nasal pain, nasal congestion , rhinorrhea, epistaxis, sore throat, stidor, throat swelling, mouth pain, mouth swelling, dental pain, gum swelling Cardiovascular: denies: no symptoms reported, see HPI, chest pain, chest tightness, chest pressure, diaphoresis, palpitations, syncope, other Respiratory: denies: no symptoms reported, see HPI, cough, orthopnea, short of breath, stridor, wheezing, sputum production, cyanosis, DISLA, PND, other Gastrointestinal: denies no symptoms reported, denies see HPI, denies abdominal pain, denies constipation, denies diarrhea, denies nausea, denies vomiting, denies other Genitourinary - Male: denies: no symptoms, see HPI, rash, amenorrhea, penile itching, penile discharge, testicular pain, testicular swelling, impotence, other Musculoskeletal: denies no symptoms reported, denies see HPI, denies back pain , denies gout, denies joint pain, denies joint swelling, denies muscle pain, denies muscle stiffness, denies neck pain, denies other Integumentary: other (psorasis ) Neurologic: reports: other (sz disorder), denies: no symptoms, see HPI, headache, numbness, paresthesias, tingling, general weakness, tics, focal weakness, vertigo, lethargy, memory loss, dizziness Endocrine: denies: no symptoms, as stated in HPI, cold intolerance, heat intolerance, hair changes, goiter, polydipsia, polyuria, skin changes, other Hematologic / Lymphatic: denies: no symptoms, as stated in HPI, abnormal clotting, adenopathy, anemia, easy bleeding, easy bruising, gums bleeding, petechiae, other Examination Physical Examination A physical exam was performed in the ER prior to admission to the unit by Dr. Hartley. I accept that physical as correct/medical clearance for the inpatient physical exam. Vital Signs Vital Signs Past 12 Hours Date Time Temp Pulse Resp B/P (MAP) Pulse Ox O2 Delivery O2 Flow Rate FiO2 12/06/17 06:57 36.3 73 16 114/70 86 106/65 12/06/17 04:51 36.9 78 16 112/60 Laboratory Results Last 24 Hours Test 12/05/17 16:45 12/05/17 17:40 12/05/17 19:48 White Blood Count 7.88 K/uL Red Blood Count 5.34 M/uL Hemoglobin 16.2 g/dL Hematocrit 46.1 % Mean Corpuscular Volume 86.3 fL Mean Corpuscular Hemoglobin 30.3 pg Mean Corpuscular Hemoglobin Concent 35.1 g/dl Platelet Count 175 K/uL Mean Platelet Volume 10.8 fL Neutrophils (%) (Auto) 59.2 % Lymphocytes (%) (Auto) 24.0 % Monocytes (%) (Auto) 13.6 % Eosinophils (%) (Auto) 2.4 % Basophils (%) (Auto) 0.5 % Neutrophils # (Auto) 4.67 K/uL Lymphocytes # (Auto) 1.89 K/uL Monocytes # (Auto) 1.07 K/uL Eosinophils # (Auto) 0.19 K/uL Basophils # (Auto) 0.04 K/uL RDW Standard Deviation 40.6 fL RDW Coefficient of Variation 12.8 % Immature Granulocyte % (Auto) 0.3 % Immature Granulocyte # (Auto) 0.02 K/uL Sodium Level 137 mmol/L Potassium Level 3.2 mmol/L Chloride Level 108 mmol/L Carbon Dioxide Level 27 mmol/L Anion Gap 2.0 mmol/L Blood Urea Nitrogen 10 mg/dl Creatinine 1.18 mg/dl Est Creatinine Clear Calc Drug Dose 91.9 ml/min Estimated GFR () 96.8 Estimated GFR (Non- 83.5 BUN/Creatinine Ratio 8.6 Random Glucose 81 mg/dl Calcium Level 8.9 mg/dl Total Bilirubin 0.5 mg/dl Direct Bilirubin 0.2 mg/dl Aspartate Amino Transf (AST/SGOT) 18 U/L Alanine Aminotransferase (ALT/SGPT) 25 U/L Alkaline Phosphatase 133 U/L Total Protein 7.9 gm/dl Albumin 4.2 gm/dl Thyroid Stimulating Hormone (TSH) 0.934 uIu/ml Ethyl Alcohol mg/dL < 3.0 mg/dl Urine Color YELLOW Urine Appearance CLEAR Urine pH 6.5 Urine Specific [place] 1.018 Urine Protein NEG Urine Glucose (UA) TRACE Urine Ketones NEG Urine Occult Blood NEG Urine Nitrite NEG Urine Bilirubin NEG Urine Urobilinogen NEG Urine Leukocyte Esterase NEG Urine Opiates Screen NEG Urine Methadone, Qualitative NEG Urine Barbiturates NEG Urine Phencyclidine (PCP) Level NEG Ur Amphetamine/Methamphetamine NEG MDMA (Ecstasy) Screen POS Urine Benzodiazepines Screen NEG Urine Cocaine Metabolite NEG Urine Marijuana (THC) POS Salicylates Level 2.1 mg/dl Acetaminophen Level < 2 ug/ml Mental Examination During interview pt is: alert and oriented, cooperative Appearance: appropriately dressed, appropriately groomed Eye contact is: good Motor behavior is: steady gait & station, no abnormal motor movements Speech: normal in rate, rhythm & volume (but at times sudden angry tone that settled down quickly ) Affect: depressed, labile, irritable, angry Mood is: depressed, angry Thought process: tangential Thought content: cognitive distortions Suicidal thought are: denied Homicidal thoughts are: denied Hallucinations: denies auditory, denies visual Cognition: memory grossly intact, other (attention and concentration fair ) Intelligence estimated to be: average Insight: impaired Judgement: impaired Impression / Recommendations Impression reported h/o bipolar d/o and anxiety d/o with depressive symptoms and sudden quick anger when frustrated. sz d/o psoriasis low K 302 admission given his over taking of wellbutrin sr which was reported as a suicide attempt with pt reporting taking extra pills to help himself feel better since was upset/depressed. Pt attributes his psychosocial stressors including interpersonal tensions with mother, bereavement of various deaths over the years and his legal concerns and restrictions as adding to his depressed mood. Self-Reported h/o of ADHD treated with stimulants as a child/ adolescent but not since then. Has outpt psychiatrist (Bla[facility]) and has substance counseling at [facility]. Pt wanting off wellbutrin but weary to start another med at this time. Inventory Assets Strengths: seeking anger management, wanting to deal with his symptoms Needs: medication adjustment, addressing his anger and impulsivity concerns, medication adjustments Risk Factors Assessment Male: Yes : Yes /single/: Yes Access to guns: No Health problems: Yes Mental Health Diagnoses: Yes Substance use disorders: Yes Previous attempt: Yes Previous attempt;highly lethal: Yes Previous psychiatric stay: Yes Smoker: Yes Protective Factors Assessment Employed: Yes Recommendations (1) Mood disorder - stop wellbutrin sr given s/e profile of lowering sz threshold and of adding to irritability and anxiety. pt indicated desire to stop wellbutrin as well. given likely s/e profile, given recent extra taking of pills (2-10 described) will just stop med. - considered with pt trial of depakote or retrial of seroquel , pt prefers to just maintain on Thorazine for now and see how does without wellbutrin sr being present -considered with pt raising Thorazine dose slightly but pt weary of sedation and preferred to maintain at 25mg am and 100mg hs. nurses did confirm this dosing with pharmacy (although 25mg was written as evening instead of am but pt appears be tolerating am dose without issue and will maintain at this dose timing -H/O MEI, pt invested in using cannabis but reports abstaining for now due to legal consequences. continue [facility] outpt treatment , aiming to convert pt from klonopin to a non controlled med for his anxiety/agitation -pt indicated that Dr. Welsh would want ADHD testing before directly treating ADHD further with Dr. Welsh given him a list of options of where to obtain such testing per pt -q15 minute safety checks -coordinate with outpt providers, NEVAEH signed -aiming for family meeting, perhaps with mother, pt resistant to this currently though (2) Seizure disorder -continue Kepra unchanged for now -appreciate medical consult (3) Hypokalemia K+ given in ER and repeat today nl level appreciate medical consult will monitor and order an additional K+ for 4/ 16 am (4) Tobacco use disorder nicotine patch 21mg and nicotine gum being provided aim for counseling and education and further interventions, given pt presentation today in context of 302 admission that pt is worked up about will address later in hospital course (5) Psoriasis continue outpt triaminole cream CPT Code Initial Hospital Care: [id number]
[2017-12-06 13:45] LABS: CALCIUM 8.8 mg/dl (8.5-10.1); CREATININE 1.17 mg/dl (0.60-1.40); POTASSIUM 4.4 mmol/L (3.5-5.1)
[2017-12-06] MEDS: TRIAMCINOLONE ACET 0.1% EXT SCH (21:19)
[2017-12-06] MEDS ORDERED: CHLORPROMAZINE HCL 100 MG TAB PO SCH (22:00)
[2017-12-07 06:48] VITALS: BP_SYST 108; BP_SYST 94; BP_DIAS 57; BP_DIAS 63; PULSE 71; PULSE 91; TEMP 36.4
[2017-12-07] MEDS: NICOTINE 21 MG/24 HR TDSY TD SCH (07:48)
[2017-12-07] MEDS: CHLORPROMAZINE HCL 25 MG TAB PO SCH (07:48)
[2017-12-07] MEDS: LEVETIRACETAM 500 MG TAB PO SCH (07:48)
[2017-12-07] MEDS: TRIAMCINOLONE ACET 0.1% EXT SCH (07:48)
--- NOTE | 2017-12-07 08:17 | Psychiatric Progress Notes ---
Progress Note Date of Service Dec 07, 2017. Interval History Scooby Smith is a 27-year-old male admitted on Dec 05, 2017 at 23:56 who currently lives with mother, has a history of polysubstance abuse and depression , and was admitted on a 302 involuntary commitment after overdosing on bupropion (per mother, which he denies). He was admitted from home and was brought back to the ED by security after leaving the ER. Chief Complaint "A lot better ". Subjective Patient was seen & assessed interval progress reviewed with Treatment Team. Staff report he is going to some groups, is blaming his mother's boyfriend for his hospitalization, and gives inconsistent reports. He has a meeting with his mother today. He is utilizing clonazepam as needed, refused all evening groups yesterday, and spends a great deal of time on the phone. He admits to feeling overwhelmed with the circumstances of his home life over the past 2 weeks, stating that he was fired from his job at the beginning of the month due to missing too many days, placed on house arrest, and fighting with his mother and her boyfriend. On my assessment today, the patient states he feels "a lot better," noting his mood has improved here and he "feels good about myself." He thinks this is due to being away from his mother's boyfriend, stating "he don 't like me, and I don't like him." He has a meeting with his mother today, and says that she might bring her boyfriend, but he does not want to talk to him, although they will be living together after discharge. He says he plans just to avoid him, but then states that the boyfriend often drives him to work, and they all live together in a trailer. He continues to state that he only took 2 extra bupropion on the day of admission, and that his mother's boyfriend lied when she said he took over 10 in a suicide attempt. He says he took extra medication to try to boost his mood. He denies that he has had suicidal thoughts for "months," since he was admitted to the [facility]. He is hoping to eventually find his own place, but states his criminal background has limited his options. He does not drive, states his license was suspended as he was driving without a license, and also has active seizures. He hopes to be discharged at the end of his 302, as he wants to return to work at [employer] and work on getting custody of his children back. Sleep Information Total Hours of Sleep: 7.75 Meal Information Percent of Breakfast Consumed: 100 Percent of Lunch Consumed: 100 Percent of Dinner Consumed: 100 Mental Status Exam During interview pt is: alert and oriented, cooperative Appearance: appropriately dressed, appropriately groomed, other (skin lesions over both LEs) Eye contact is: good Motor behavior is: steady gait & station, no abnormal motor movements Speech: normal in rate, rhythm & volume Affect: blunted (appears sedated) Mood is: other ("better") Thought process: circumstantial Thought content: cognitive distortions Suicidal thought are: denied Homicidal thoughts are: denied Hallucinations: denies auditory, denies visual Cognition: memory grossly intact, other (attention and concentration fair ) Intelligence estimated to be: average Insight: impaired Judgement: impaired Impression 27-year-old male admitted on a 302 involuntary commitment after an overdose on bupropion, which his mother stated was a suicide attempt, and then eloping from the emergency room. The patient admits to taking excessive bupropion, but states he did it to help himself feel better since was upset/depressed. Endorses multiple psychosocial stressors including interpersonal tensions with mother, bereavement of various deaths over the years, and his legal problems. Self-reported h/o of ADHD treated with stimulants as a child/adolescent but not since then, and upset that he does not have current stimulant prescriptions. He sees Dr. Welsh, and has substance counseling at [facility]. Bupropion was discontinued on admission due to overdose, and continued on chlorpromazine and clonazepam as needed. Inpatient treatment is indicated due to mood and anxiety symptoms, substance abuse, toxic ingestion on admission, and ongoing risk for harm to self if discharged prematurely. Plan (1) Mood disorder - stop wellbutrin sr given s/e profile of lowering sz threshold and of adding to irritability and anxiety. pt indicated desire to stop wellbutrin as well. given likely s/e profile, given recent extra taking of pills (2-10 described) will just stop med. - considered with pt trial of depakote or retrial of seroquel , pt prefers to just maintain on Thorazine for now and see how does without wellbutrin sr being present -considered with pt raising Thorazine dose slightly but pt weary of sedation and preferred to maintain at 25mg am and 100mg hs. nurses did confirm this dosing with pharmacy (although 25mg was written as evening instead of am but pt appears be tolerating am dose without issue and will maintain at this dose timing -H/O MEI, pt invested in using cannabis but reports abstaining for now due to legal consequences. continue [facility] out[facility] treatment , aiming to convert pt from klonopin to a non controlled med for his anxiety/agitation -pt indicated that Dr. Welsh would want ADHD testing before directly treating ADHD further with Dr. Welsh given him a list of options of where to obtain such testing per pt -q15 minute safety checks -coordinate with outpt providers, NEVAEH signed -aiming for family meeting, perhaps with mother, pt resistant to this currently though 12/07 -family meeting with mother today. -Continue chlorpromazine. Records requested from Dr. Welsh and will arrange aftercare. (2) Cannabis abuse 12/07 -patient has been advised of the risks of cannabis use and recommendations for abstinence. We have requested records from his outpatient substance abuse treatment provider at [facility], and he will return there for ongoing treatment after discharge. -Recovery protocol. (3) Polysubstance abuse 12/07 -UDS positive for MDMA and marijuana, confirmatory tests pending. -Records have been requested from [facility], patient giving inconsistent reports about his substance abuse (denies it but is in substance abuse treatment , and violated probation with +UDS; UDS here positive for cannabis and MDMA). Per records, history of LSD, heroin, and cocaine use. -Per PDMP, he filled a clonazepam prescription from Dr. Welsh on 11/30/17 (for # 60 1 mg tabs). In the past year, he filled numerous clonazepam and oxycodone prescriptions, from 6 different prescribers. --Avoid addictive/abusable medications. -Consider taper off clonazepam due to risks of abuse/misuse, given substance abuse history, misuse of other prescription medications, and risk of drug-drug interactions. (4) Hypokalemia K+ given in ER and repeat today nl level appreciate medical consult will monitor and order an additional K+ for am 12/07 -potassium 3.2 in the emergency room, increased to 4.4 yesterday, and within the normal range at 3.6 today. (5) Seizure disorder -continue Kepra unchanged for now -appreciate medical consult (6) Tobacco use disorder nicotine patch 21mg and nicotine gum being provided aim for counseling and education and further interventions, given pt presentation today in context of 302 admission that pt is worked up about will address later in hospital course (7) Psoriasis continue outpt triaminole cream Discharge / Aftercare Planning Primary Care Physician: Name: Doesn't know, [facility] "I go to the hospital instead" Psychiatrist: Name: Dr. Welsh [employer] Assistant Teacher: Name: none Visit Code E&M Code: 57322 Inventory Assets Strengths: seeking anger management, wanting to deal with his symptoms Needs: medication adjustment, addressing his anger and impulsivity concerns, medication adjustments Risk Factors Assessment Male: Yes : Yes /single/: Yes Health problems: Yes Mental Health Diagnoses: Yes Substance use disorders: Yes Previous attempt: Yes Previous attempt;highly lethal: Yes Previous psychiatric stay: Yes Smoker: Yes Protective Factors Assessment Employed: Yes Data Vital Signs Last 24 Hrs: Date Time Temp Pulse Resp B/P (MAP) Pulse Ox O2 Delivery O2 Flow Rate FiO2 12/07/17 06:48 36.4 71 16 108/63 91 94/57 Meds Administered Last 24 Hrs: Meds Administered (Past 24Hrs) Medications (Trade) Dose Ordered Sig/Lelia Route Start Time Stop Time Status Last Admin Dose Admin Sodium Chloride 2,000 ml @ 999 mls/hr Q2H1M STAT IV 12/05/17 19:34 12/05/17 21:34 DC 12/05/17 19:57 999 MLS/HR Lorazepam (Ativan Inj) 1 mg NOW STAT IV 12/05/17 19:36 12/05/17 19:38 DC 12/05/17 19:57 1 MG Clonazepam (Klonopin Tab) 1 mg BID PRN PO 12/05/17 20:00 01/04/18 19:59 12/06/17 21:20 1 MG Levetiracetam (Keppra Tab) 500 mg BID PO 12/05/17 21:00 01/04/18 20:59 12/07/17 07:48 500 MG Magnesium Sulfate 1 gm/Prmx 100 ml @ 100 mls/hr NOW STAT IV 12/05/17 20:26 12/05/17 21:25 DC 12/05/17 21:00 100 MLS/HR Potassium Chloride (Klor-Con Tab) 40 meq NOW STAT PO 12/05/17 19:54 12/05/17 20:27 DC 12/05/17 21:00 40 MEQ Nicotine (Nicoderm Cq 14MG Patch) 1 patch QAM TD 12/06/17 09:00 12/06/17 09:32 DC 12/06/17 08:29 1 PATCH Miscellaneous (Remove Nicoderm Patch) 1 ea DAILY@2200 N/A 12/06/17 22:00 01/05/18 21:59 12/06/17 21:17 1 EA Sodium Chloride ([place] Nasal [place]) PRN PRN NA 12/06/17 00:45 01/05/18 00:44 12/06/17 10:51 1 SPRAYS Nicotine (Nicoderm Cq 21MG Patch) 1 patch QAM TD 12/06/17 09:00 01/05/18 08:59 12/07/17 07:48 1 PATCH Miscellaneous (Remove Nicoderm Patch) 1 ea ONE ONCE N/A 12/06/17 09:36 12/06/17 09:37 DC 12/06/17 09:36 1 EA Chlorpromazine HCl (Thorazine Tab) 25 mg DAILY PO 12/06/17 09:00 01/05/18 08:59 12/07/17 07:48 25 MG Chlorpromazine HCl (Thorazine Tab) 100 mg HS PO 12/06/17 22:00 01/05/18 21:59 12/06/17 21:17 100 MG Triamcinolone Acetonide (Triamcinolone Acet 0.1% Ointment) 1 appln BID EXT 12/06/17 22:00 01/05/18 21:59 12/07/17 07:48 1 APPLN Lab Results Last 24 Hrs: Last 24 Hours Test 12/06/17 13:02 12/07/17 07:09 Sodium Level 137 mmol/L Potassium Level 4.4 mmol/L 3.6 mmol/L Chloride Level 104 mmol/L Carbon Dioxide Level 30 mmol/L Anion Gap 3.0 mmol/L Blood Urea Nitrogen 8 mg/dl Creatinine 1.17 mg/dl Est Creatinine Clear Calc Drug Dose 93.3 ml/min Estimated GFR () 97.8 Estimated GFR (Non- 84.3 BUN/Creatinine Ratio 6.5 Random Glucose 102 mg/dl Calcium Level 8.8 mg/dl Magnesium Level 2.4 mg/dl
[2017-12-07] MEDS: CLONAZEPAM 1 MG TAB PO PRN (08:53)
[2017-12-07] MEDS ORDERED: LORAZEPAM 2 MG/ML 1 ML VIAL ONE (12:35)
--- NOTE | 2017-12-07 12:44 | Discharge Instructions ---
Discharge Information Report Includes Report will include the: Discharge Instructions & Summary Admission Admission Date / Time: Dec 05, 2017 at 23:56 Reason for Admission: Bipolar Discharge Discharge Diagnosis / Problem: Depression, overdose, substance abuse Condition at Discharge: Poor (actively seizing) Discharge Goals Goal(s): Improve function, Improve disease control, Learn about illness, Therapeutic intervention Activity Recommendations Activity Limitations: as noted below You were transferred to the medical floor for treatment of seizure disorder. You will return to the Behavioral Health Unit once stabilized for continued mental health treatment on an 302 involuntary commitment. . Instructions / Follow-Up Instructions / Follow-Up . SPECIAL CARE INSTRUCTIONS: 1. Follow through with your scheduled aftercare appointments. If unable to keep an appointment, please call to reschedule. 2. Take your medication only as prescribed. Medication should not be changed or stopped without the approval of your doctor. In the event of worsening symptoms or concerns about side effects, contact your doctor immediately. 3. Utilize new healthy coping skills, anger management skills, and stress management skills learned during your hospitalization. Journal feelings and process them with a support person. Identify stressors or situations that may result in relapse, deterioration or inappropriate behaviors and develop a plan to deal with those issues. 4. If your coping skills are ineffective and you are in crisis, contact your outpatient providers for direction. If unable to reach your providers, please call the CAN HELP LINE AT or go to the closest Emergency Room. 5. Avoid alcohol and un-prescribed drugs. 6. You have been provided with the Mental Health Advance Directives Pamphlet for your review. AFTERCARE APPOINTMENTS: * Please call your insurance company prior to your scheduled appointment to confirm your aftercare providers are covered. Take your insurance information to your appointments. . Discharge / Aftercare Planning Primary Care Physician: Name: Doesn't know, [facility] "I go to the hospital instead" Psychiatrist: Name: Dr. Welsh Therapist: Name Of Therapist: Singh Medeiros Repairer General: Name: none . Follow-Up Care Plan for Follow-Up Care: To be arranged at the time of discharge from the [facility] Current Hospital Diet Patient's current hospital diet: Regular Diet Discharge Diet Recommended Diet: Regular Diet Procedures Procedures Performed: No Pending Studies Pending Studies at Discharge: No Medical Emergencies . Who to Call and When: Medical Emergencies: For questions or emergencies related to your hospital stay, please contact the Inpatient Behavioral Health Unit at [phone]. A circular gang saw operator is on-call 16/03 for the Behavioral Health Unit for emergencies At any time you feel your situation is an emergency, you may also call 911 immediately. . Non-Emergent Contact Non-Emergency issues call your: Primary Care Provider, Psychiatrist, Therapist Past History Medical & Surgical History: (1) Hypokalemia (2) Psoriasis (3) Seizure disorder (4) Cannabis abuse (5) Polysubstance abuse Advance Directives Existing Advance Directive: No Do You Have an Existing Mental: No Existing Living Will: No Existing Power of Strategy Consultant: No Advance Directives Info Given: To Pt/S.O. Advance Directives Reason: Declines as Mental Health Visit. Discharge Summary Admission HPI Per the Admitting provider: reported bipolar and anxiety d/o with h/o ADHD per pt. depression that pt states is tied to stressors trevon degree of deaths over past few years including a friend who hang himself in 2016 and 2 friends who perhaps by OD, along with his step father's suicide in 2012 by shooting himself. Pt served 17 months in retirement for aggravated assault of his ex in 2014 and is on parole and tested positive for Cannabis in October leading him to have a GPS tracker for 60 days that might end December 2015. Pt is living wit his mother and he appears to have a conflicted volatile relationship with her while also depending on her to help remind him of taking his meds and other sources of support whirl viewing her as not caring about him and his health. He feels that she indicated incorrectly that he tried to kill himself with 10 extra pills of wellbutrin. Instead he claims he took 2 extra wellbutrin 150mg pills while at a friends place and indicated to his mother that he took the pills to try to alleviate his depressed mood. He endorsed and exhibited a volatile tendency to anger when frustrated. He denied HI or SI or recent physical aggressive behaviors in the past year. He denied psychotic features.He denied awareness of h/o full manic episodes. HE endorsed h/o ADHD and feels that this is more the issue with his scattered and impulsivity behaviors and speech and thought process. He is frustrated that he needs ot obtain more testing before his psychiatrist would more directly address his ADHD with other meds. HE feels that cannabis helps settl him down. He finds his Thorazine script of 25mg am and 100mg hs is calming for him and alleviating and helps him manage his anger better and he noticed sedation at 50mg am and weary ot adjust the dose in any way at this time. He uses klonopin 1mg 1-2 times a day as needed for anxiety/agitation but was out of it for a couple weeks recently after missing his [facility] psychiatrist appt in late October. He denied consistent depressive symptoms instead indicating mood lability and easily depressed mood at times. Admission Exam Per the Admitting provider: Please see admission H&P. Consultations Medical consult due to seizure activity/code purple. Hospital Course (1) Mood disorder - stop wellbutrin sr given s/e profile of lowering sz threshold and of adding to irritability and anxiety. pt indicated desire to stop wellbutrin as well. given likely s/e profile, given recent extra taking of pills (2-10 described) will just stop med. - considered with pt trial of depakote or retrial of seroquel , pt prefers to just maintain on Thorazine for now and see how does without wellbutrin sr being present -considered with pt raising Thorazine dose slightly but pt weary of sedation and preferred to maintain at 25mg am and 100mg hs. nurses did confirm this dosing with pharmacy (although 25mg was written as evening instead of am but pt appears be tolerating am dose without issue and will maintain at this dose timing -H/O MEI, pt invested in using cannabis but reports abstaining for now due to legal consequences. continue crosswords outpt treatment , aiming to convert pt from klonopin to a non controlled med for his anxiety/agitation -pt indicated that Dr. Welsh would want ADHD testing before directly treating ADHD further with Dr. Welsh given him a list of options of where to obtain such testing per pt -q15 minute safety checks -coordinate with outpt providers, NEVAEH signed -aiming for family meeting, perhaps with mother, pt resistant to this currently though 12/07 -family meeting with mother today. -Continue chlorpromazine. Records requested from Dr. Welsh and will arrange aftercare. Patient experienced a seizure, code purple was called, and he was transferred to telemetry. Neuro consult will be obtained. He remains on a 302 involuntary commitment through 12/10/17 at 22:00. (2) Cannabis abuse 12/07 -patient has been advised of the risks of cannabis use and recommendations for abstinence. We have requested records from his outpatient substance abuse treatment provider at [place], and he will return there for ongoing treatment after discharge. -Recovery protocol. (3) Polysubstance abuse 12/07 -UDS positive for MDMA and marijuana, confirmatory tests pending. -Records have been requested from [facility], patient giving inconsistent reports about his substance abuse (denies it but is in substance abuse treatment , and violated probation with +UDS; UDS here positive for cannabis and MDMA). Per records, history of LSD, heroin, and cocaine use. -Per PDMP, he filled a clonazepam prescription from Dr. Welsh on 11/30/17 (for # 60 1 mg tabs). In the past year, he filled numerous clonazepam and oxycodone prescriptions, from 6 different prescribers. --Avoid addictive/abusable medications. -Consider taper off clonazepam due to risks of abuse/misuse, given substance abuse history, misuse of other prescription medications, and risk of drug-drug interactions. (4) Hypokalemia K+ given in ER and repeat today nl level appreciate medical consult will monitor and order an additional K+ for am 12/07 -potassium 3.2 in the emergency room, increased to 4.4 yesterday, and within the normal range at 3.6 today. (5) Seizure disorder -continue Kepra unchanged for now -appreciate medical consult (6) Tobacco use disorder nicotine patch 21mg and nicotine gum being provided aim for counseling and education and further interventions, given pt presentation today in context of 302 admission that pt is worked up about will address later in hospital course (7) Psoriasis continue outpt triaminole cream Risk Factors Assessment Male: Yes : Yes /single/: Yes Higher / Fall in social status: No Health problems: Yes Mental Health Diagnoses: Yes Substance use disorders: Yes Previous attempt: Yes Previous attempt;highly lethal: Yes Previous psychiatric stay: Yes Smoker: Yes Protective Factors Assessment Employed: Yes Day of Discharge Assessment See today's progress note. Patient had a seizure and was transferred to the medical floor. Discussed with Dr. Hicks and KENNY Denis. Laboratory Test 12/05/17 16:45 12/05/17 17:40 12/05/17 19:48 12/06/17 13:02 White Blood Count 7.88 Red Blood Count 5.34 Hemoglobin 16.2 Hematocrit 46.1 Mean Corpuscular Volume 86.3 Mean Corpuscular Hemoglobin 30.3 Mean Corpuscular Hemoglobin Concent 35.1 Platelet Count 175 Mean Platelet Volume 10.8 Neutrophils (%) (Auto) 59.2 Lymphocytes (%) (Auto) 24.0 Monocytes (%) (Auto) 13.6 Eosinophils (%) (Auto) 2.4 Basophils (%) (Auto) 0.5 Neutrophils # (Auto) 4.67 Lymphocytes # (Auto) 1.89 Monocytes # (Auto) 1.07 Eosinophils # (Auto) 0.19 Basophils # (Auto) 0.04 RDW Standard Deviation 40.6 RDW Coefficient of Variation 12.8 Immature Granulocyte % (Auto) 0.3 Immature Granulocyte # (Auto) 0.02 Sodium Level 137 137 Chloride Level 108 104 Carbon Dioxide Level 27 30 Anion Gap 2.0 3.0 Blood Urea Nitrogen 10 8 Creatinine 1.18 1.17 Est Creatinine Clear Calc Drug Dose 91.9 93.3 Estimated GFR () 96.8 97.8 Estimated GFR (Non- 83.5 84.3 BUN/Creatinine Ratio 8.6 6.5 Random Glucose 81 102 Calcium Level 8.9 8.8 Total Bilirubin 0.5 Direct Bilirubin 0.2 Aspartate Amino Transferase (AST) 18 Alanine Aminotransferase (ALT) 25 Alkaline Phosphatase 133 Total Protein 7.9 Albumin 4.2 Thyroid Stimulating Hormone (TSH) 0.934 Levetiracetam Level Pending Ethyl Alcohol mg/dL < 3.0 Urine Color YELLOW Urine Appearance CLEAR Urine pH 6.5 Urine Specific [place] 1.018 Urine Protein NEG Urine Glucose (UA) TRACE Urine Ketones NEG Urine Occult Blood NEG Urine Nitrite NEG Urine Bilirubin NEG Urine Urobilinogen NEG Urine Leukocyte Esterase NEG Urine Opiates Screen NEG Urine Methadone, Qualitative NEG Urine Barbiturates NEG Urine Phencyclidine (PCP) Level NEG Ur Amphetamine/Methamphetamine NEG Urine MDE-amphetamine (MDEA) Pending Ur Methylenedioxyamphetamine (MDA) Pending MDMA (Ecstasy) Screen POS Methylenedioxymethamphetamine (MDMA Pending Urine Benzodiazepines Screen NEG Urine Cocaine Metabolite NEG Urine Marijuana (THC) POS Urine Marijuana (THC Carboxy Acid) Pending Salicylates Level 2.1 Acetaminophen Level < 2 Potassium Level 4.4 Magnesium Level 2.4 Test 12/07/17 07:09 Potassium Level 3.6 Total Time Total Time Spent (min): Greater than 30 minutes Total Time Included: examination of the patient, discharge planning, medication reconciliation, communication with other providers Tobacco Cessation at Discharge Smoking Status: Current Every Day Smoker FDA approved Prescription: nicotine replacement product
[2017-12-07] MEDS ORDERED: WLLSR150 PO (12:47)
== END 2017-12-07 12:45 | disposition other institution (70) | DRG 885 ==
LOC: C.EDB 16:06 → C.MHU 23:56
PROVIDERS: ADMIT Psychiatry & Neurology Psychiatry; ATTEND Psychiatry & Neurology Psychiatry
DX: F31.9 Bipolar disorder, unspecified (principal); E87.1 Hypo-osmolality and hyponatremia; F12.10 Cannabis abuse, uncomplicated; F15.10 Other stimulant abuse, uncomplicated; G40.909 Epilepsy, unspecified, not intractable, without status epilepticus; R00.0 Tachycardia, unspecified; R04.0 Epistaxis; F17.200 Nicotine dependence, unspecified, uncomplicated; L40.9 Psoriasis, unspecified; Z65.3 Problems related to other legal circumstances; Z91.5 Personal history of self-harm; Z79.899 Other long term (current) drug therapy; Z88.5 Allergy status to narcotic agent; Z82.0 Family history of epilepsy and other diseases of the nervous system; Z83.3 Family history of diabetes mellitus; Z82.49 Family history of ischemic heart disease and other diseases of the circulatory system

== ENCOUNTER 2017-12-07 12:52 | Observation (INO) | payer OTHER ==
[~2017-12-07] VITALS: Ht 175.3 cm; Wt 73.0 kg
[~2017-12-07 12:52] MED LIST changes: -BUPR-79 PO; -SODIUM CHLORIDE 0.9% 10ML FLUSH IV ONE; +WLLSR150 PO
[2017-12-07 12:59] VITALS: BP 112/76; PULSE 72; TEMP 36.6; O2SAT 99
[2017-12-07 13:06] VITALS: BP 112/76; PULSE 72; TEMP 36.6; O2SAT 99; Ht 175.3 cm; Wt 73.0 kg
[2017-12-07] MEDS ORDERED: PNEUMOCOCCAL POLYSACCHARIDES 25 MCG/0.5 ML VIAL/SYR IM. ONE (14:00)
[2017-12-07] MEDS ORDERED: PNEUMOCOCCAL ADMINISTRATION CHARGE ONE (14:00)
[2017-12-07] MEDS ORDERED: ACETAMINOPHEN 325 MG TAB PO PRN (14:00)
[2017-12-07] MEDS ORDERED: ONDANSETRON INJ 2 MG/ML 2 ML VIAL IV PRN (14:00)
[2017-12-07] MEDS ORDERED: NSS + 20MEQ KCL 1000ML 1,000 ML IV SCH (14:00)
[2017-12-07] MEDS ORDERED: IV FLUIDS COMPLETED PRN (14:15)
--- NOTE | 2017-12-07 14:36 | Psychiatric Consultation ---
Consultation Date of Consultation Dec 07, 2017. Identifying Data 27-year-old male with a history of mood disorder not otherwise specified and polysubstance abuse who was admitted to the behavioral health unit on a 302 involuntary commitment after overdosing on bupropion and what family reported was a suicide attempt. He was transferred to the medical service today after a seizure, and psychiatry is consulted for medication management. Chief Complaint Mood disorder and medications History of Present Illness The patient was seen by me today just prior to his seizure, please see discharge summary from the behavioral health unit for additional detail. In short, he was admitted to the behavioral health unit on a 302 involuntary commitment after family reported that he took a bupropion SR overdose in a suicide attempt. He disputes his family's account of the events, stating that he took twice his prescribed dose of bupropion in order to boost his mood as he was feeling down. He has denied suicidal thoughts here, but has displayed difficulty with anger outbursts and unstable mood. During his brief admission to the behavioral health unit, bupropion was discontinued as he was not taking it correctly and it lowers the seizure threshold, he was continued on his home dose of chlorpromazine and clonazepam 1 mg twice daily as needed, and records were requested from his outpatient psychiatrist, Dr. Welsh. He was scheduled to have a family meeting with his mother today, and was nervous about it, as he is hoping to be discharged soon and was worried the meeting would not go well and he would lose control. Nursing staff saw him just before his seizure, as he had returned to his room and appeared distraught. The social work coordinator started the meeting with he and his mother, and he was irritable and externalizing blame for his problems, stating his mother did not do enough for him, despite the fact that she provides him a place to live and provides transportation to work and appointments. His mother expressed frustration with the patient's blaming her and lack of responsibility for his role in his problems. Despite requiring another hospitalization, he stated he wanted to decrease his outpatient services. He is hoping that his horticultural technical officer will allow him to live in [place] with a friend. He said that sometimes he would prefer to return to snf than to comply with treatment and parole requirements, and agreed to allow staff to contact his horticultural technical officer. He began to shake and stare, became unresponsive, and developed seizure activity, and a code purple was called. Past Psychiatric History Current OP Treatment: psychiatrist, therapist Prior OP Treatment: psychiatrist, therapist Prior Psych [facility] Access to a Gun: No Suicide Attempts: Yes (Serious attempt by hanging in spring 2016) Past Medication Trials seroquel - (in snf, was switched after a while but pt found it helpful and calming) risperdal - (does not recall details) lithium - possible, pt not sure. Concerta as a child and switched for a bit to ritalin or Adderall per pt Past Medical/Surgical History History of Concussion/Seizure: Yes (Seizure disorder) (1) Psoriasis (2) Seizure disorder (3) Cannabis abuse (4) Polysubstance abuse (5) Asthma (6) Tobacco use disorder Allergies Allergies: Coded Allergies: Hydrocodone (Verified Allergy, Severe, GI SYMPTOMS, 12/05/17) CAN'T TAKE THE BRAND WITH RED SPECKLES Tramadol (Verified Allergy, Unknown, GI SYMPTOMS, 12/05/17) Home Medications Scheduled Bupropion HCl (Bupropion HCl Sr), 150 MG PO BID Chlorpromazine Hcl (Thorazine), 25 MG PO QAM Chlorpromazine Hcl (Thorazine), 100 MG PO HS Levetiracetam (Keppra), 500 MG PO BID Scheduled PRN Clonazepam (Clonazepam), 1 MG PO BID PRN for Anxiety/Agitation Family History Diabetes mellitus Hypertension Seizures History of Suicide: Yes Psychiatric History: Yes Alcohol Use Alcohol Use In Past 12 Months: No The patient reports a history of alcohol abuse, but states he has not had alcohol since he was incarcerated in 2016. Smoking Use Smoking Status: Current Every Day Smoker Substance History Patient reports last used cannabis 3-4 weeks ago, but drug screen is positive. He also had a positive drug screen with his horticultural technical officer, so was placed in a GPS ankle tracker. He also has a history of extensive drug use including LSD, heroin, and cocaine, last use 8-10 years ago per patient. Personal History Lives in: with mother in [place], [place] Education: started high school (10th grade education), other Work History: [employer] the past 13 months Relationship History: Children: daughter age 5 - no custody of; son age 9 - aiming for partial custody of Legal History: reported (On parole, history of aggravated assault of ex-, served 17 months and released 09/2016) Psychological Trauma History: Denies Hx Traumatic Event, Significant Loss ( [place] , of 3 friends over the past few years, of stepfather ) Examination Vital Signs Vital Signs Past 12 Hours Date Time Temp Pulse Resp B/P (MAP) Pulse Ox O2 Delivery O2 Flow Rate FiO2 12/07/17 13:06 36.6 72 16 112/76 99 Room Air 12/07/17 12:59 36.6 72 16 112/76 (88) 99 Room Air Laboratory Results Last 24 Hours Test 12/07/17 13:35 Impression / Recommendations Impression 27-year-old white male with mood disorder not otherwise specified and polysubstance abuse who is admitted after an overdose on bupropion, which he states was to make his mood better, but family report he made suicidal statements. He admits to poorly controlled anger and has multiple psychosocial stressors. Recommendations (1) Mood disorder Differential includes bipolar disorder, depression with irritability, substance- induced mood disorder, and personality disorder. -Continue chlorpromazine at home dose. Bupropion was discontinued on the behavioral health unit due to patient's misuse of it and possibility of increasing his seizure risk. Consider a trial of Depakote for mood, anger, and seizures if neurology thinks that is appropriate choice for treating his seizures. -Patient will need to return to the behavioral health unit for ongoing psychiatric treatment once he is medically stabilized. He is on a 302 involuntary commitment through 12/10/2017 at 2200 hrs. (2) Polysubstance abuse -Avoid prescription of medications that are addictive or abusable. Recommend taper off clonazepam.
[2017-12-07 14:46] VITALS: BP 123/72; PULSE 104; TEMP 36.4; O2SAT 97
[2017-12-07] MEDS ORDERED: LORAZEPAM 2 MG/ML 1 ML VIAL IV PRN (15:30)
--- NOTE | 2017-12-07 15:41 | History and Physical ---
History & Physical Date & Time of Service: Dec 07, 2017 at 15:30 Chief Complaint: Bryson Primary Care Physician: No Doctor, Assigned History of Present Illness Source: patient, family, hospital records 27 yo male admitted to the behavioral health unit for depression, bipolar disorder and possible suicidal intentions reported by his mother. Patient has a history of seizures and was on Keppra but was not very compliant, missing doses. Admitted that he missed a dose on Thursday evening (12/04). Patient was seen in the ED on 12/05 after he had a witnessed seizure that lasted 2 minutes. He admitted to missing the dose of Keppra on Thursday. He also admitted to taking 4-6 extra Wellbutrin to "help his mood" but denies trying to harm himself. He was discharged from the ED after an IV dose of Keppra, he refused to have follow up arranged with neurology. 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 He was upset because his mother had signed a 302 petition due to her concerns over him taking too much Wellbutrin and felt he was a danger to himself. He was blaming her for his situation, became very worked up when he found out he was going to have to remain admitted for 72 hours against his will. He was upset about being on parole, upset about missing work and needing to make child support payments. He was very agitated after returning to his room and he then started shaking, generalized uncontrolled movements. No tongue biting, no urinary incontinence. Per witnesses, he seemed to follow commands during the episode which would be contrary to a generalized seizure. He was given Ativan and transferred to telemetry. Once on telemetry, I interviewed patient, he was calm and cooperative. Had memory loss surrounding the seizure episode. He had full strength in his extremities. He reports that he has seizures frequently at home. Described several episodes of falling down and shaking, his mom confirmed that he will have seizures at home. He has not followed up with neurology per his report. He was seen in fall 2016 for seizures and Keppra 500mg BID was recommended. Per psychiatry, his Wellbutrin was just stopped due to lowering seizure threshold and he will be managed on thorazine for mood. Past Medical/Surgical History Bipolar disorder, depression Substance abuse, marijuana Seizure disorder Psoriasis Family History Diabetes mellitus Hypertension Seizures Social History Smoking Status: Current Every Day Smoker (08/24 ppd) Drug Use: marijuana Marital Status: single Housing status: lives with family Occupational Status: employed Allergies Coded Allergies: Hydrocodone (Verified Allergy, Severe, GI SYMPTOMS, 12/05/17) CAN'T TAKE THE BRAND WITH RED SPECKLES Tramadol (Verified Allergy, Unknown, GI SYMPTOMS, 12/05/17) Home Medications Scheduled Bupropion HCl (Bupropion HCl Sr), 150 MG PO BID Chlorpromazine Hcl (Thorazine), 25 MG PO QAM Chlorpromazine Hcl (Thorazine), 100 MG PO HS Levetiracetam (Keppra), 500 MG PO BID Scheduled PRN Clonazepam (Clonazepam), 1 MG PO BID PRN for Anxiety/Agitation Review of Systems Constitutional: + weakness, + fatigue, No fever, No chills, No sweats, No weight loss, No problem reported Eyes: No worsening of vision, No eye pain, No redness, No discharge, No diplopia, No problem reported ENT: + problem reported (epistaxis, prior to admission), No hearing loss, No unusual epistaxis, No nasal symptoms, No sore throat, No tinnitus, No dental problems, No trouble swallowing Respiratory: No cough, No sputum, No wheezing, No shortness of breath, No dyspnea on exertion, No dyspnea at rest, No hemoptysis, No problem reported Cardiovascular: No chest pain, No orthopnea, No PND, No edema, No claudication , No palpitations, No problem reported Abdomen: No pain, No nausea, No vomiting, No diarrhea, No constipation, No GI bleeding, No problem reported Musculoskeletal: No joint pain, No muscle pain, No swelling, No calf pain, No problem reported Genitourinary - Male: No hematuria, No dysuria, No urinary frequency, No urinary urgency Neurologic: + weakness, + problem reported (repeated seizures, several in past few days), No memory loss, No paralysis, No numbness/tingling, No vertigo, No balance problems Psychiatric: + depression symptoms, + anxiety, + substance abuse, No anhedonism , No insomnia, No problem reported Endocrine: No fatigue, No excessive thirst, No excessive urination, No problem reported Hematologic / Lymphatic: No abnormal bleeding/bruising, No clotting problems, No swollen lymph nodes, No night sweats, No problem reported Integumentary: + rash (psoriatic, chronic), No itch, No new/changing skin lesions, No color change, No bleeding, No problem reported Allergic / Immunologic: No environmental allergies, No seasonal allergies, No pet sensitivities, No food allergies, No hives, No frequent infections, No poor healing, No prolonged convalescence, No problem reported Physical Exam Vital Signs Date Time Temp Pulse Resp B/P (MAP) Pulse Ox O2 Delivery O2 Flow Rate FiO2 12/07/17 14:46 36.4 104 18 123/72 (89) 97 Room Air 12/07/17 13:06 36.6 72 16 112/76 99 Room Air 12/07/17 12:59 36.6 72 16 112/76 (88) 99 Room Air General Appearance: WD/WN, no apparent distress Head: normocephalic, atraumatic Eyes: normal inspection, EOMI, sclerae normal ENT: normal ENT inspection, hearing grossly normal, pharynx normal Neck: supple, no adenopathy, no JVD, trachea midline Respiratory/Chest: chest non-tender, lungs clear, normal breath sounds, no respiratory distress, no accessory muscle use Cardiovascular: regular rate, rhythm, no edema, no gallop, no JVD, no murmur, normal peripheral pulses Abdomen/GI: normal bowel sounds, non tender, soft, no organomegaly Back: normal inspection, no CVA tenderness, no muscle spasm, normal range of motion Extremities/Musculoskelatal: normal inspection, no calf tenderness, normal capillary refill, no pedal edema, normal range of motion, non-tender, pelvis stable 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, no motor/sensory deficits, alert, normal mood/affect, normal reflexes, oriented x 3 Skin: normal color, warm/dry, + rash (diffuse, psoriatic) Lymphatic: no adenopathy Diagnostics Laboratory Results Results Past 24 Hours Test 12/07/17 13:35 Range/Units Impression Assessment and Plan 27 yo male who was initially admitted to [facility] after taking too many Wellbutrin, transferred to telemetry for observation after witnessed seizure in the [facility] - Seizure disorder with several seizures in past several days seizure this morning despite taking Keppra 500mg BID mild weakness and memory loss, no post ictal confusion or paralysis no urinary incontinence patient was possibly following commands during episode, question pseudoseizure? he admitted to being really agitated prior to episode, wanted to know if 302 still valid after having the seizure will order EEG continue Keppra at current dosing, provide Ativan PRN consult neurology for recommendations - Bipolar disorder, depression continue Thorazine per psychiatry Wellbutrin stopped on initial admission since it lowers seizure threshold and patient weary of taking it consult psychiatry to continue seeing patient while on tele - Epistaxis POA: no nosebleeds while admitted - Medication overdose: mother initiated a 302 because the patient took too many Wellbutrin he states that he did not want to harm himself, that he just wanted to "feel better" by taking more medications he states that he took 4-6 pills at once, certainly could have contributed to lowering seizure threshold he took these 12/04 in the evening - Psoriasis: chronic rash DVT prophylaxis: not indicated, young patient, will be OOB Advanced Directives Existing Living Will: No Existing Power of Manager Environmental Services: No Resuscitation Status VTE Prophylaxis Will order VTE Prophylaxis: No Reason for no VTE drug order: Treatment not indicated Reason no Mechanical VTE Order: Treatment not indicated
[2017-12-07 18:09] VITALS: BP 134/86; PULSE 69; TEMP 36.4; O2SAT 98
[2017-12-07] MEDS: CHLORPROMAZINE HCL 100 MG TAB PO SCH (20:54)
[2017-12-07] MEDS: LEVETIRACETAM 500 MG TAB PO SCH (20:54)
[2017-12-07 22:43] VITALS: BP 129/84; PULSE 74; TEMP 36.3; O2SAT 95
[2017-12-08 03:40] VITALS: BP 92/57; PULSE 57; TEMP 36.4; O2SAT 96
[2017-12-08] MEDS: LEVETIRACETAM 500 MG TAB PO SCH ×2 (07:31→21:05)
[2017-12-08] MEDS: CHLORPROMAZINE HCL 25 MG TAB PO SCH (07:32)
[2017-12-08 07:54] LABS: BASO % 0.4 %; BASO ABS # 0.03 K/uL (0-0.2); EOS ABS # 0.29 K/uL (0-0.5); HEMATOCRIT 48.5 % (42-52); HEMOGLOBIN 17.3 g/dL (14.0-18.0); IG# 0.01 K/uL (0.00-0.02); LYMPH % 30.5 %; MEAN CELL VOLUME 86.8 fL (80-100); MEAN CORPUSCULAR HEMOGLOBIN 30.9 pg (25-34); MEAN CORPUSCULAR HGB CONC 35.7 g/dl (32-36); MEAN PLATELET VOLUME 10.9 fL (7.4-10.4); MONO % 13.3 %; MONO ABS # 0.96 K/uL (0.11-0.59); NEUT % 51.7 %; NEUT ABS # 3.73 K/uL (1.4-6.5); PLATELET COUNT 147 K/uL (130-400); RED CELL DISTRIBUTION WIDTH CV 12.8 % (11.5-14.5); RED CELL DISTRIBUTION WIDTH SD 40.8 fL (36.4-46.3); WHITE BLOOD COUNT 7.22 K/uL (4.8-10.8)
[2017-12-08 08:15] LABS: CALCIUM 9.2 mg/dl (8.5-10.1); CREATININE 1.16 mg/dl (0.60-1.40); POTASSIUM 3.9 mmol/L (3.5-5.1)
[2017-12-08] MEDS: NICOTINE 14 MG/24 HR TDSY TD SCH (08:58)
--- NOTE | 2017-12-08 09:02 | Psychiatric Progress Notes ---
Psychiatric Progress Note Date of Service Dec 08, 2017. Notes Reviewed record since transfer, and spoke with Dr. Morse of Neurology who is seeing the patient in consultation today for seizures. Discussed possibility of using an antiepileptic that would target both seizures and irritability/anger outbursts, such as Depakote, in place of Keppra, as it can worsen mood at times. Lamotrigine also a possibility, but longer titration period and greater risk with poor adherence (Mohamud Дмитрий Syndrome). Discussed lack of clear seizure diagnosis and other contributing issues (poor medication adherence/ abuse of medications, stressors) to seizure activity. Will await medical clearance and anticipate patient returning to the [facility] today if medically stabilized.
--- NOTE | 2017-12-08 09:10 | Neurology Consultation ---
Neurology Consultation Date of Consultation: Dec 08, 2017. Attending Physician: Jarrod Brambila D.O. Primary Care Physician: No Doctor, Assigned Reason for Consultation: Seizures History of Present Illness Source: patient, hospital records The patient is a 27-year-old male with a history of bipolar disorder and seizures who was admitted to the behavioral health unit yesterday for further evaluation and management of depression with suicidal ideation. He had a witnessed seizure-like episode and was transferred to telemetry pending further neurological assessment. The patient indicates that he does not have a good recollection of his seizures. According to the medical record he had become very upset regarding the circumstances of his recent psychiatric admission. He had indicated that he had been taking extra Wellbutrin to address his mood. He was observed to become very agitated which was followed by generalized shaking, although he was able to follow commands during the episode. There was no associated tongue bite or incontinence. A review of the hospital record indicates the patient has presented to the hospital 5 separate times for further assessment of seizure-like episodes since July 10, 2017. He reports the episodes typically begin with shaking of the limbs, usually the left hand. He otherwise denies aura or other premonitions. He states that he has fallen to the ground during these episodes and has experienced a left-sided tongue bite previously he does not recall having incontinence with any of these spells. He was seen by Dr. Llamas on July 13, 2017 after a seizure-like episode. At that time, his reported seizure characteristics included eyes rolling back, generalized shaking, and falling down. There was no tongue bite or incontinence reported at that time. Precipitating factors include stress, lack of sleep, and perhaps misuse of his psychiatric medications as he claimed that he ran out of his clonazepam. An MRI of the brain and EEG were completed July 12 and July 13 respectively. No abnormalities were observed on these tests. The MRI included thin sections through the temporal lobes. No evidence of mesial temporal sclerosis. No significant parenchymal abnormalities. I reviewed the images as well as the radiologist's interpretation of his MRI. He had been given a prescription for Keppra after his admission to the hospital in June. He had also been scheduled to follow up with Dr. Llamas in [facility] but apparently did not show up for 3 appointments. A repeat electroencephalogram was completed this morning. I reviewed the tracing. I do appreciate some sharply contoured left frontal slowing in the theta frequency range. The finding is not diagnostic of a seizure disorder, however. Past Medical/Surgical History Medical Problems: (1) Anxiety Status: Chronic (2) Bipolar Disorder, Unspecified Status: Chronic (3) Bronchitis Status: Acute (4) Depression Status: Chronic (5) History of asthma Status: Chronic (6) Hordeolum externum left lower eyelid Status: Acute (7) Hypokalemia Status: Acute (8) Mood disorder Status: Acute (9) Noncompliance with medications Status: Acute (10) Psoriasis, Unspecified Status: Chronic (11) Seizure Status: Acute (12) Seizure Status: Acute (13) Seizures Status: Chronic (14) Suicidal thoughts Status: Acute Family History The patient indicates that his mother has seizures Social History Smoking Status: Current every day smoker Drug Use: marijuana Marital Status: single Housing Status: lives with family Occupation Status: employed Allergies Coded Allergies: Hydrocodone (Verified Allergy, Severe, GI SYMPTOMS, 12/05/17) CAN'T TAKE THE BRAND WITH RED SPECKLES Tramadol (Verified Allergy, Unknown, GI SYMPTOMS, 12/05/17) Current Inpatient Medications Current Inpatient Medications Medications (Trade) Dose Ordered Sig/Lelia Route Start Time Stop Time Status Last Admin Dose Admin Acetaminophen (Tylenol Tab) 650 mg Q4H PRN PO 12/07/17 14:00 01/06/18 13:59 Ondansetron HCl (Zofran Inj) 4 mg Q6H PRN IV 12/07/17 14:00 01/06/18 13:59 Miscellaneous (Iv Fluids Completed) 1 ea PRN PRN N/A 12/07/17 14:15 12/07/18 14:14 Chlorpromazine HCl (Thorazine Tab) 25 mg QAM PO 12/08/17 09:00 01/07/18 08:59 12/08/17 07:32 25 MG Chlorpromazine HCl (Thorazine Tab) 100 mg HS PO 12/07/17 21:00 01/06/18 20:59 12/07/17 20:54 100 MG Levetiracetam (Keppra Tab) 500 mg BID PO 12/07/17 21:00 01/06/18 20:59 12/08/17 07:31 500 MG Lorazepam (Ativan Inj) 1 mg Q4H PRN IV 12/07/17 15:30 01/06/18 15:29 Nicotine (Nicoderm Cq 14MG Patch) 1 patch QAM TD 12/08/17 09:00 01/07/18 08:59 Miscellaneous (Remove Nicoderm Patch) 1 ea HS N/A 12/08/17 21:00 01/07/18 20:59 Review of Systems Constitutional: No fever or chills Eyes: No vision loss or diplopia ENT: No vertigo or hearing loss Cardiovascular: No chest pain or palpitations Respiratory: No coughing or shortness of breath Genitourinary: No incontinence as per HPI Neurological: As per HPI Skin: History of psoriasis which remains an active issue Psychiatric: As per HPI A full 10 point review of systems was obtained from this patient with pertinent positives and negatives described in the history of present illness and otherwise listed above. All remaining systems were reviewed and are negative. Physical Exam Vital Signs (Past 24 Hrs): Date Time Temp Pulse Resp B/P (MAP) Pulse Ox O2 Delivery O2 Flow Rate FiO2 12/08/17 04:00 Room Air 12/08/17 03:40 36.4 57 17 92/57 (69) 96 Room Air 12/07/17 23:59 Room Air 12/07/17 22:43 36.3 74 18 129/84 (99) 95 Room Air 12/07/17 20:00 Room Air 12/07/17 18:09 36.4 69 18 134/86 (102) 98 Room Air 12/07/17 16:00 Room Air 12/07/17 14:46 36.4 104 18 123/72 (89) 97 Room Air 12/07/17 13:06 36.6 72 16 112/76 99 Room Air 12/07/17 12:59 36.6 72 16 112/76 (88) 99 Room Air The the patient is a well-developed, well-nourished adult male. He is sitting up comfortably in bed. He is pleasant and non agitated. The patient is alert and fully oriented. Recent and remote memory intact with the exception of some mild amnesia for his seizure-like episodes. Attention and concentration normal. Patient exhibits a normal spontaneous speech pattern. He is able to name objects and repeat phrases. He exhibits an age-appropriate fund of knowledge a normal vocabulary. Visual mullins full to confrontation. Visual acuity normal. Pupils equal round reactive to light and accommodation. Eye movements normal. There is no nystagmus. Facial sensation intact. There is no facial weakness or droop. Hearing intact. Palate elevates to midline. Shoulder shrug intact. Tongue protrudes to midline. There are no lingual lacerations. Sensation intact to vibration, proprioception, temperature, and light touch for all 4 limbs. Deep tendon reflexes are intact and symmetrical, plantar responses downgoing bilaterally. There is no dysdiadochokinesia or dysmetria with [id number] or heel to cardona bilaterally. Ophthalmoscopic examination reveals normal-appearing optic discs and posterior segments. No papilledema or hemorrhages. Carotid pulses normal bilaterally, no bruits to auscultation. Gait not tested due to seizure precautions. Muscle strength and tone normal for all 4 limbs. No atrophy. No abnormal movements observed. Laboratory Results Past 24 Hours: 12/08/17 07:26 Red Blood Count 5.59, Mean Corpuscular Volume 86.8, Mean Corpuscular Hemoglobin 30.9, Mean Corpuscular Hemoglobin Concent 35.7, Mean Platelet Volume 10.9, Neutrophils (%) (Auto) 51.7, Lymphocytes (%) (Auto) 30.5, Monocytes (%) (Auto) 13.3, Eosinophils (%) (Auto) 4.0, Basophils (%) (Auto) 0.4, Neutrophils # (Auto ) 3.73, Lymphocytes # (Auto) 2.20, Monocytes # (Auto) 0.96, Eosinophils # (Auto ) 0.29, Basophils # (Auto) 0.03 12/08/17 07:26 Test 12/07/17 13:35 12/08/17 07:26 White Blood Count 7.22 K/uL (4.8-10.8) Red Blood Count 5.59 M/uL (4.7-6.1) Hemoglobin 17.3 g/dL (14.0-18.0) Hematocrit 48.5 % (42-52) Mean Corpuscular Volume 86.8 fL (80-100) Mean Corpuscular Hemoglobin 30.9 pg (25-34) Mean Corpuscular Hemoglobin Concent 35.7 g/dl (32-36) Platelet Count 147 K/uL (130-400) Mean Platelet Volume 10.9 fL (7.4-10.4) Neutrophils (%) (Auto) 51.7 % Lymphocytes (%) (Auto) 30.5 % Monocytes (%) (Auto) 13.3 % Eosinophils (%) (Auto) 4.0 % Basophils (%) (Auto) 0.4 % Neutrophils # (Auto) 3.73 K/uL (1.4-6.5) Lymphocytes # (Auto) 2.20 K/uL (1.2-3.4) Monocytes # (Auto) 0.96 K/uL (0.11-0.59) Eosinophils # (Auto) 0.29 K/uL (0-0.5) Basophils # (Auto) 0.03 K/uL (0-0.2) RDW Standard Deviation 40.8 fL (36.4-46.3) RDW Coefficient of Variation 12.8 % (11.5-14.5) Immature Granulocyte % (Auto) 0.1 % Immature Granulocyte # (Auto) 0.01 K/uL (0.00-0.02) Anion Gap 4.0 mmol/L (3-11) Est Creatinine Clear Calc Drug Dose 94.9 ml/min Estimated GFR () 98.8 Estimated GFR (Non- 85.2 BUN/Creatinine Ratio 8.2 (10-20) Calcium Level 9.2 mg/dl (8.5-10.1) Magnesium Level 2.1 mg/dl (1.8-2.4) Impression This is a 27-year-old male who has been experiencing recurrent seizure-like episodes for the past 5 months. Some of the reported elements of these episodes are suggestive of nonepileptic seizures. He has had 2 EEGs which are not diagnostic of epilepsy. Stress and misuse of his psychiatric medications may have been precipitating factors. However, I am unable to completely exclude a focal onset seizure disorder with secondary generalization in spite of the nondiagnostic EEGs. Plan Given the relatively large number of seizure-like episodes this patient has had in the past 5 months, I would recommend continued treatment with an anticonvulsant. I discussed his case further with , Psychiatry, this morning. Rather than Keppra, Depakote would be a more appropriate anticonvulsant choice as Depakote would also address some of his underlying mood , anger issues. I would recommend dosing the Depakote at least 500 milligrams twice daily, although a larger dose may be appropriate depending on his psychiatric needs. This patient will need outpatient neurology follow up with either myself or Dr. Llamas. He will likely need an ambulatory EEG and/or a referral to an epilepsy monitoring unit to more definitively diagnose or exclude focal seizures with secondary generalization. Keppra may be discontinued after his condition is stabilized with Depakote. Please contact me if I may be of further assistance.
--- NOTE | 2017-12-08 09:22 | EEG Procedure Note ---
EEG Procedure Note Date of Service Dec 08, 2017. Start / End Times Start Time: 8:11AM End Time: 8:31AM Referring Physician Jarrod Brambila DO History Recurrence seizure-like episodes for the past 5 months. Home Medication List Scheduled Bupropion HCl (Bupropion HCl Sr), 150 MG PO BID Chlorpromazine Hcl (Thorazine), 25 MG PO QAM Chlorpromazine Hcl (Thorazine), 100 MG PO HS Levetiracetam (Keppra), 500 MG PO BID Scheduled PRN Clonazepam (Clonazepam), 1 MG PO BID PRN for Anxiety/Agitation Inpatient Medication List Current Inpatient Medications Medications (Trade) Dose Ordered Sig/Lelia Route Start Time Stop Time Status Last Admin Dose Admin Acetaminophen (Tylenol Tab) 650 mg Q4H PRN PO 12/07/17 14:00 01/06/18 13:59 Ondansetron HCl (Zofran Inj) 4 mg Q6H PRN IV 12/07/17 14:00 01/06/18 13:59 Miscellaneous (Iv Fluids Completed) 1 ea PRN PRN N/A 12/07/17 14:15 12/07/18 14:14 Chlorpromazine HCl (Thorazine Tab) 25 mg QAM PO 12/08/17 09:00 01/07/18 08:59 12/08/17 07:32 25 MG Chlorpromazine HCl (Thorazine Tab) 100 mg HS PO 12/07/17 21:00 01/06/18 20:59 12/07/17 20:54 100 MG Levetiracetam (Keppra Tab) 500 mg BID PO 12/07/17 21:00 01/06/18 20:59 12/08/17 07:31 500 MG Lorazepam (Ativan Inj) 1 mg Q4H PRN IV 12/07/17 15:30 01/06/18 15:29 Nicotine (Nicoderm Cq 14MG Patch) 1 patch QAM TD 12/08/17 09:00 01/07/18 08:59 Miscellaneous (Remove Nicoderm Patch) 1 ea HS N/A 12/08/17 21:00 01/07/18 20:59 Description This is a 21 electrode EEG with a single channel dedicated to limited EKG. The electrodes were placed in accordance with the International 10-20 system. This is a bedside EEG completed and the telemetry unit. There is a posterior dominant rhythm of 12 hertz that is symmetrically distributed and attenuates with eye opening. There is a normal anterior to posterior organization. Photic stimulation is unremarkable. There is fairly continuous sharply contoured left frontal theta slowing throughout the 1st half of the study. In the latter part of the study there is attenuation of the background rhythm with the emergence of generalized polymorphic theta and intermittent symmetric frontal delta activity. A few vertex waves are observed as well. Interpretation This is a borderline abnormal EEG given the presence of sharply contoured left frontal theta slowing. Otherwise, there is a normal background rhythm capturing both normal alertness followed by somnolence in the latter part of the study. Clinical Correlation This EEG is not diagnostic of epilepsy. However, the observed sharply contoured left frontal theta slowing could be consistent with recent focal onset seizure activity. The finding does not provide conclusive evidence of a seizure disorder. Please see today's neurology consult for further details. If there is continued concern for seizures in this patient an ambulatory EEG or admission to an epilepsy monitoring unit should be considered.
[2017-12-08] MEDS ORDERED: DIVALPROEX 500 MG EXTENDED RELEASE TAB PO ONE (10:15)
--- NOTE | 2017-12-08 13:54 | Progress Note ---
Subjective Date of Service: Dec 08, 2017. 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 Morse, recommends switching to Depakote patient without any seizure activity labs normal today d/w Dr. Nowak, plan to return to [facility] tomorrow Problem List Medical Problems: (1) Anxiety Status: Chronic (2) Bipolar Disorder, Unspecified Status: Chronic (3) Bronchitis Status: Acute (4) Depression Status: Chronic (5) History of asthma Status: Chronic (6) Hordeolum externum left lower eyelid Status: Acute (7) Hypokalemia Status: Acute (8) Mood disorder Status: Acute (9) Noncompliance with medications Status: Acute (10) Psoriasis, Unspecified Status: Chronic (11) Seizure Status: Acute (12) Seizure Status: Acute (13) Seizures Status: Chronic (14) Suicidal thoughts Status: Acute Review of Systems Constitutional: + weakness, + fatigue Psychiatric: + depression symptoms All Other Systems: Reviewed and Negative Medications Current Inpatient Medications Medications (Trade) Dose Ordered Sig/Lelia Route Start Time Stop Time Status Last Admin Dose Admin Acetaminophen (Tylenol Tab) 650 mg Q4H PRN PO 12/07/17 14:00 01/06/18 13:59 Ondansetron HCl (Zofran Inj) 4 mg Q6H PRN IV 12/07/17 14:00 01/06/18 13:59 Miscellaneous (Iv Fluids Completed) 1 ea PRN PRN N/A 12/07/17 14:15 12/07/18 14:14 Chlorpromazine HCl (Thorazine Tab) 25 mg QAM PO 12/08/17 09:00 01/07/18 08:59 12/08/17 07:32 25 MG Chlorpromazine HCl (Thorazine Tab) 100 mg HS PO 12/07/17 21:00 01/06/18 20:59 12/07/17 20:54 100 MG Levetiracetam (Keppra Tab) 500 mg BID PO 12/07/17 21:00 01/06/18 20:59 12/08/17 07:31 500 MG Lorazepam (Ativan Inj) 1 mg Q4H PRN IV 12/07/17 15:30 01/06/18 15:29 Nicotine (Nicoderm Cq 14MG Patch) 1 patch QAM TD 12/08/17 09:00 01/07/18 08:59 12/08/17 08:58 1 PATCH Miscellaneous (Remove Nicoderm Patch) 1 ea HS N/A 12/08/17 21:00 01/07/18 20:59 Divalproex Sodium (Depakote Extended Rel Tab) 500 mg QAM PO 12/09/17 09:00 01/08/18 08:59 Objective Vital Signs Date Time Temp Pulse Resp B/P (MAP) Pulse Ox O2 Delivery O2 Flow Rate FiO2 12/08/17 12:00 Room Air 12/08/17 08:00 Room Air 12/08/17 04:00 Room Air 12/08/17 03:40 36.4 57 17 92/57 (69) 96 Room Air 12/07/17 23:59 Room Air 12/07/17 22:43 36.3 74 18 129/84 (99) 95 Room Air 12/07/17 20:00 Room Air 12/07/17 18:09 36.4 69 18 134/86 (102) 98 Room Air 12/07/17 16:00 Room Air 12/07/17 14:46 36.4 104 18 123/72 (89) 97 Room Air Physical Exam General Appearance: WD/WN, no apparent distress Eyes: normal inspection, EOMI, sclerae normal ENT: normal ENT inspection, hearing grossly normal, pharynx normal Neck: supple, no adenopathy, no JVD, trachea midline Respiratory/Chest: chest non-tender, lungs clear, normal breath sounds, no respiratory distress, no accessory muscle use Cardiovascular: regular rate, rhythm, no edema, no gallop, no JVD, no murmur Abdomen: normal bowel sounds, non tender, soft, no organomegaly Extremities: normal range of motion, non-tender, no pedal edema, no calf tenderness, normal capillary refill, pelvis stable 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, alert, normal mood/affect, oriented x 3, + motor weakness Skin: + pertinent finding (numerous open wounds on lower legs bilaterally, ulcers and possible dry gangrene in toes) Laboratory Results Last 24 Hours Test 12/08/17 07:26 White Blood Count 7.22 K/uL Red Blood Count 5.59 M/uL Hemoglobin 17.3 g/dL Hematocrit 48.5 % Mean Corpuscular Volume 86.8 fL Mean Corpuscular Hemoglobin 30.9 pg Mean Corpuscular Hemoglobin Concent 35.7 g/dl Platelet Count 147 K/uL Mean Platelet Volume 10.9 fL Neutrophils (%) (Auto) 51.7 % Lymphocytes (%) (Auto) 30.5 % Monocytes (%) (Auto) 13.3 % Eosinophils (%) (Auto) 4.0 % Basophils (%) (Auto) 0.4 % Neutrophils # (Auto) 3.73 K/uL Lymphocytes # (Auto) 2.20 K/uL Monocytes # (Auto) 0.96 K/uL Eosinophils # (Auto) 0.29 K/uL Basophils # (Auto) 0.03 K/uL RDW Standard Deviation 40.8 fL RDW Coefficient of Variation 12.8 % Immature Granulocyte % (Auto) 0.1 % Immature Granulocyte # (Auto) 0.01 K/uL Sodium Level 136 mmol/L Potassium Level 3.9 mmol/L Chloride Level 103 mmol/L Carbon Dioxide Level 29 mmol/L Anion Gap 4.0 mmol/L Blood Urea Nitrogen 9 mg/dl Creatinine 1.16 mg/dl Est Creatinine Clear Calc Drug Dose 94.9 ml/min Estimated GFR () 98.8 Estimated GFR (Non- 85.2 BUN/Creatinine Ratio 8.2 Random Glucose 84 mg/dl Calcium Level 9.2 mg/dl Magnesium Level 2.1 mg/dl Assessment and Plan 27 yo male who was initially admitted to [facility] after taking too many Wellbutrin, transferred to telemetry for observation after witnessed seizure in the [facility] - Seizure disorder with several seizures in past several days seizure on morning of admission despite taking Keppra 500mg BID EEG: This is a borderline abnormal EEG given the presence of sharply contoured left frontal theta slowing Dr. Morse recommends changing to Depakote 500mg started with AM, will continue Keppra today likely go to [facility] tomorrow - Bipolar disorder, depression continue Thorazine per psychiatry Wellbutrin stopped on initial admission since it lowers seizure threshold and patient weary of taking it consult psychiatry to continue seeing patient while on tele can take patient back tomorrow - Epistaxis POA: no nosebleeds while admitted - Medication overdose: mother initiated a 302 because the patient took too many Wellbutrin he states that he did not want to harm himself, that he just wanted to "feel better" by taking more medications he states that he took 4-6 pills at once, certainly could have contributed to lowering seizure threshold he took these 12/04 in the evening - Psoriasis: chronic rash DVT prophylaxis: not indicated, young patient, will be OOB d/c back to [facility] tomorrow AM
[2017-12-08] MEDS ORDERED: LORAZEPAM 0.5 MG TAB PO PRN (14:00)
[2017-12-08 15:19] VITALS: BP 129/88; PULSE 80; TEMP 36.4; O2SAT 97
[2017-12-08 18:53] VITALS: BP 126/77; PULSE 89; TEMP 36.5; O2SAT 97
[2017-12-08] MEDS: CHLORPROMAZINE HCL 100 MG TAB PO SCH (21:06)
[2017-12-08 22:54] VITALS: BP 118/73; PULSE 76; TEMP 36.5; O2SAT 98
[2017-12-09 03:44] VITALS: BP 92/54; PULSE 62; TEMP 36.4; O2SAT 97
[2017-12-09 07:00] VITALS: BP 125/80; PULSE 58; TEMP 36.5; O2SAT 98
[2017-12-09] MEDS: CHLORPROMAZINE HCL 25 MG TAB PO SCH (08:03)
[2017-12-09] MEDS: LEVETIRACETAM 500 MG TAB PO SCH (08:03)
[2017-12-09] MEDS: NICOTINE 14 MG/24 HR TDSY TD SCH (08:03)
[2017-12-09] MEDS ORDERED: DIVALPROEX 500 MG EXTENDED RELEASE TAB PO SCH (09:00)
[2017-12-09] MEDS ORDERED: DIVALPROEX SODIUM 500 MG DELAY RELEASE TAB PO SCH (09:00)
[2017-12-09] MEDS ORDERED: NICO14DI5 TD (09:42)
[2017-12-09] MEDS ORDERED: DPKEC500 PO (09:42)
--- NOTE | 2017-12-09 09:46 | Discharge Instructions ---
Discharge Instructions Date of Service Dec 09, 2017. Admission Reason for Admission: Seziures Discharge Discharge Diagnosis / Problem: Seizure disorder, bipolar disorder, depression Discharge Goals Goal(s): Decrease discomfort, Improve disease control Activity Recommendations Activity Limitations: per Instructions/Follow-up section Lifting Limitations: none Exercise/Sports Limitations: as tolerated May Resume Sexual Activity: when tolerated Shower/Bathe: no limitations . 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 Patient medically stable to return to [facility] today follow up with psychiatry OUTPATIENT FOLLOW UP - should follow up in [facility] neurology clinic in one month, Dr. Mishra or Dr. Morse Current Hospital Diet Patient's current hospital diet: Regular Diet Discharge Diet Recommended Diet: Regular Diet Pending Studies Studies pending at discharge: no Medical Emergencies . Who to Call and When: Medical Emergencies: If at any time you feel your situation is an emergency, please call 911 immediately. . Non-Emergent Contact Non-Emergency issues call your: Neurologist Call Non-Emergent contact if: you have any medication questions . . "Provider Documentation" section prepared by Jarrod Brambila. . [place] Drug Monitoring Program Search Results: no issues identified
--- NOTE | 2017-12-09 09:55 | Discharge Summary ---
Discharge Summary Date of Service Dec 09, 2017. Discharge Summary Admission Date: Dec 07, 2017 at 12:52 Discharge Date: Dec 09, 2017 Discharge Disposition: Acute care mental health Principal Diagnosis: Seizure disorder Problems/Secondary Diagnoses: (1) Anxiety Status: Chronic (2) Bipolar Disorder, Unspecified Status: Chronic (3) Depression Status: Chronic (4) History of asthma Status: Chronic (5) Psoriasis, Unspecified Status: Chronic (6) Seizures Status: Chronic Procedures: EEG Consultations: Neurology Psychiatry Medication Reconciliation New Medications: Divalproex Sodium (Divalproex Sodium Dr) 500 Mg Tabec 500 MG PO BID, #60 TABS 1 Refill Nicotine (Nicoderm Cq 14MG Patch) 14 Mg/24 Hr Dis 1 PATCH TD QAM, #14 PATCH 0 Refills Continued Medications: Chlorpromazine Hcl (Thorazine) 25 Mg Tab 25 MG PO QAM, TAB Chlorpromazine Hcl (Thorazine) 100 Mg Tab 100 MG PO HS, TAB Clonazepam (Clonazepam) 1 Mg Tab 1 MG PO BID PRN for Anxiety/Agitation Discontinued Medications: Bupropion HCl (Bupropion HCl Sr) 150 Mg Tabcr 150 MG PO BID Levetiracetam (Keppra) 500 Mg Tab 500 MG PO BID Discharge Exam Patient feeling well, resting in bed, no seizure activity since admission. Discussed with Dr. Nowak yesterday about returning to [facility]. patient will return to complete what is left of his 302 admission. Review of Systems: Constitutional: No fever, No chills, No sweats, No weight loss, No weakness , No fatigue, No problem reported Eyes: No worsening of vision, No eye pain, No redness, No discharge, No diplopia, No problem reported Respiratory: No cough, No sputum, No wheezing, No shortness of breath, No dyspnea on exertion, No dyspnea at rest, No hemoptysis, No problem reported Cardiovascular: No chest pain, No orthopnea, No PND, No edema, No claudication, No palpitations, No problem reported Abdomen: No pain, No nausea, No vomiting, No diarrhea, No constipation, No GI bleeding, No problem reported Musculoskeletal: No joint pain, No muscle pain, No swelling, No calf pain, No problem reported Genitourinary - Male: No hematuria, No dysuria, No urinary frequency, No urinary urgency Neurologic: No memory loss, No paralysis, No weakness, No numbness/tingling , No vertigo, No balance problems, No problem reported Psychiatric: + depression symptoms, + anxiety, No anhedonism, No insomnia, No substance abuse, No problem reported Endocrine: No fatigue, No excessive thirst, No excessive urination, No problem reported Hematologic / Lymphatic: No abnormal bleeding/bruising, No clotting problems , No swollen lymph nodes, No night sweats, No problem reported Integumentary: No rash, No itch, No new/changing skin lesions, No color change, No bleeding, No problem reported Physical Exam: General Appearance: WD/WN, no apparent distress Eyes: normal inspection, EOMI, sclerae normal ENT: normal ENT inspection, hearing grossly normal, pharynx normal Neck: supple, no adenopathy, no JVD, trachea midline Respiratory/Chest: chest non-tender, lungs clear, normal breath sounds, no respiratory distress, no accessory muscle use Cardiovascular: no edema, no gallop, no JVD, no murmur, normal peripheral pulses, + tachycardia (100's) Abdomen / GI: normal bowel sounds, non tender, soft, no organomegaly Extremities: normal inspection, no calf tenderness, normal capillary refill , no pedal edema, normal range of motion, non-tender, pelvis stable 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 Morse recommends changing to Depakote 500mg BID will transfer back to [facility] today he is medically stable - Bipolar disorder, depression continue Thorazine per psychiatry Wellbutrin stopped on initial admission since it lowers seizure threshold and patient weary of taking it started on Depakote for seizures, neurology stated that dose can be increased to help with mood if necessary consult psychiatry to continue seeing patient while on tele is currently on 302, to be completed on [facility] - Epistaxis POA: no nosebleeds while admitted - Medication overdose: mother initiated a 302 because the patient took too many Wellbutrin he states that he did not want to harm himself, that he just wanted to "feel better" by taking more medications he states that he took 4-6 pills at once, certainly could have contributed to lowering seizure threshold he took these 12/04 in the evening - Psoriasis: chronic rash DVT prophylaxis: not indicated, young patient, will be OOB Total Time Spent: Less than 30 minutes This includes examination of the patient, discharge planning, medication reconciliation, and communication with other providers. Discharge Instructions Please refer to the electronic Patient Visit Report (Discharge Instructions) for additional information. Follow-Up Psychiatry inpatient Dr Morse or Dr. Mishra in one month in neurology clinic Additional Copies To Dante Morse M.D.; Loni Nowak MD
[2017-12-09 11:01] VITALS: BP 125/80; PULSE 58; TEMP 36.5; O2SAT 98
[2017-12-10] MEDS ORDERED: BUPR-267 PO (09:28)
[2017-12-14] MEDS ORDERED: LACTATED RINGER'S 1000ML 1,000 ML IV SCH (06:00)
[2017-12-14] MEDS ORDERED: LACTATED RINGER'S 1000ML 500 ML IV SCH (06:00)
== END 2017-12-09 11:19 ==
LOC: C.2T 12:52
PROVIDERS: ADMIT Internal Medicine; ATTEND Internal Medicine
DX: G40.909 Epilepsy, unspecified, not intractable, without status epilepticus (principal); F31.9 Bipolar disorder, unspecified; Z79.899 Other long term (current) drug therapy; F12.90 Cannabis use, unspecified, uncomplicated; F17.200 Nicotine dependence, unspecified, uncomplicated; Z88.5 Allergy status to narcotic agent; Z83.3 Family history of diabetes mellitus; Z82.49 Family history of ischemic heart disease and other diseases of the circulatory system; Z82.0 Family history of epilepsy and other diseases of the nervous system

== ENCOUNTER 2017-12-09 11:19 | Inpatient (IN) | payer OTHER ==
[~2017-12-09] VITALS: Ht 175.3 cm; Wt 69.8 kg
[~2017-12-09 11:19] MED LIST changes: +DPKEC500 PO; +NICO14DI5 TD
[2017-12-09 11:49] VITALS: BP 139/80; PULSE 77; TEMP 37; Ht 175.3 cm; Wt 69.8 kg
[2017-12-09] MEDS ORDERED: MAGNESIUM HYDROXIDE SUSP 30 ML UDC PO PRN (12:00)
[2017-12-09] MEDS ORDERED: SODIUM CHLORIDE 0.65% NA SOLN 45 ML (OCEAN) PRN (12:00)
[2017-12-09] MEDS ORDERED: BISMUTH SUBSALICYLATE PER ML OMNICELL CHARGE PO PRN (12:00)
[2017-12-09] MEDS ORDERED: CLONAZEPAM 1 MG TAB PO PRN (12:00)
[2017-12-09] MEDS ORDERED: ACETAMINOPHEN 325 MG TAB PO PRN (12:00)
[2017-12-09] MEDS ORDERED: hydrOXYzine HCL 25 MG TAB PO PRN ×2 (12:00)
[2017-12-09] MEDS ORDERED: ALUMINUM/MAGNESIUM SUSP 30 ML UDC PO PRN (12:00)
[2017-12-09] MEDS ORDERED: PATIENT'S HEIGHT AND/OR WEIGHT NEEDED SCH (12:15)
[2017-12-09] MEDS ORDERED: TRIAMCINOLONE ACET 0.1% CR 15 GM TUBE EXT PRN (12:45)
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
[2017-12-09] MEDS: DIVALPROEX SODIUM 500 MG DELAY RELEASE TAB PO SCH (20:57)
[2017-12-09] MEDS ORDERED: CHLORPROMAZINE HCL 100 MG TAB PO SCH (22:00)
[2017-12-10 06:57] VITALS: BP_SYST 120; BP_SYST 95; BP_DIAS 59; BP_DIAS 67; PULSE 64; PULSE 88; TEMP 36.4
[2017-12-10] MEDS: DIVALPROEX SODIUM 500 MG DELAY RELEASE TAB PO SCH (08:39)
[2017-12-10] MEDS ORDERED: NICOTINE 14 MG/24 HR TDSY TD SCH (09:00)
[2017-12-10] MEDS ORDERED: CHLORPROMAZINE HCL 25 MG TAB PO SCH (09:00)
[2017-12-10] MEDS ORDERED: BUPR-267 PO (09:28)
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
== END 2017-12-10 11:17 | disposition home or self-care (01) | DRG 885 ==
LOC: C.MHU 11:19
PROVIDERS: ADMIT Psychiatry & Neurology Psychiatry; ATTEND Psychiatry & Neurology Psychiatry
DX: F39 Unspecified mood [affective] disorder (principal); G40.909 Epilepsy, unspecified, not intractable, without status epilepticus; L40.9 Psoriasis, unspecified; J45.909 Unspecified asthma, uncomplicated; F12.10 Cannabis abuse, uncomplicated; F10.10 Alcohol abuse, uncomplicated; F17.200 Nicotine dependence, unspecified, uncomplicated; Z79.899 Other long term (current) drug therapy; Z88.5 Allergy status to narcotic agent; Z83.3 Family history of diabetes mellitus; Z82.49 Family history of ischemic heart disease and other diseases of the circulatory system; Z84.89 Family history of other specified conditions